=== PATIENT | female | born 1945 | race Caucasian/White ===

== ENCOUNTER 2024-02-08 21:51 | Inpatient (IN) ==
--- NOTE | 2024-02-08 21:57 | DR.GENAD ---
HPI Time Seen Time Seen by Provider: 02/08/24 21:56 HPI Comment HPI Comment: 78 y/o on home oxygen at 2 lpm for copd brought in by ems for sob and intermittent cp x one day; she's also noted swelling in her legs over the past day or so and admits to an occasional cough; no wheezing, abd pain, nv/d; s he denies hx of heart disease and reports she was on eliquis for her bp; however, she is currently taking no medications every day and has not seen a doctor in a year because she "does not get sick"; she last went to [facility]. According to our records, she should be on eliquis, carvedilol, furosemide, losartan, potassium and welchol and she has hx htn and afib PMH PMH Past Medical History: Diabetes and Hypertension Past Surgical History: Yes Surgical History: Hysterectomy and Mastectomy Family History Family Medical History: Diabetes Mellitus Social History Do you use any recreational Drugs:: No ROS Review of Systems Constitutional: No Symptoms Reported Eyes: No Symptoms Reported ENTM: No Symptoms Reported Respiratoy: See HPI and Short of Breath Cardiovascular: See HPI and Chest Pain Gastrointestinal/Abdominal: No Symptoms Reported Genitourinary: No Symptoms Reported Neurological: No Symptoms Reported Musculoskeletal: See HPI Integumentary: No Symptoms Reported Hematologic/Lymphatic: No Symptoms Reported Endocrine: No Symptoms Reported Psychiatric: No Symptoms Reported PE Vital Signs Vitals: Vital Signs Temperature 97.7 F Pulse Rate 122 Pulse Rate 125 Pulse Rate 120 Pulse Rate 124 Pulse Rate 114 Pulse Rate 112 Pulse Rate 99 Pulse Rate 116 Pulse Rate 111 Pulse Rate 113 Pulse Rate 119 Pulse Rate 119 Pulse Rate 112 Pulse Rate 112 Pulse Rate 110 Pulse Rate 111 Pulse Rate 108 Pulse Rate 103 Pulse Rate 114 Pulse Rate 120 Pulse Rate 120 Pulse Rate 123 Pulse Rate 115 Respiratory Rate 36 Respiratory Rate 36 Respiratory Rate 42 Respiratory Rate 29 Respiratory Rate 26 Respiratory Rate 23 Respiratory Rate 35 Respiratory Rate 34 Respiratory Rate 38 Respiratory Rate 38 Respiratory Rate 39 Respiratory Rate 29 Respiratory Rate 28 Respiratory Rate 30 Respiratory Rate 34 Respiratory Rate 35 Respiratory Rate 24 Respiratory Rate 31 Respiratory Rate 43 Respiratory Rate 39 Respiratory Rate 20 Respiratory Rate 39 Blood Pressure 175/81 Blood Pressure 175/81 Blood Pressure 175/81 Blood Pressure 147/98 Blood Pressure 147/98 Blood Pressure 166/93 Blood Pressure 166/93 Blood Pressure 145/100 Blood Pressure 120/59 Blood Pressure 156/78 Blood Pressure 156/78 Blood Pressure 163/111 Blood Pressure 163/111 Blood Pressure 146/66 Blood Pressure 176/98 Blood Pressure 176/98 O2 Sat by Pulse Oximetry 96 O2 Sat by Pulse Oximetry 96 O2 Sat by Pulse Oximetry 100 O2 Sat by Pulse Oximetry 100 O2 Sat by Pulse Oximetry 98 O2 Sat by Pulse Oximetry 99 O2 Sat by Pulse Oximetry 98 O2 Sat by Pulse Oximetry 98 O2 Sat by Pulse Oximetry 98 O2 Sat by Pulse Oximetry 96 O2 Sat by Pulse Oximetry 95 O2 Sat by Pulse Oximetry 98 O2 Sat by Pulse Oximetry 95 O2 Sat by Pulse Oximetry 97 O2 Sat by Pulse Oximetry 97 O2 Sat by Pulse Oximetry 96 O2 Sat by Pulse Oximetry 96 O2 Sat by Pulse Oximetry 97 General Limitations: No Limitations General Appearance: Anxious and Obese Head Head Exam: Normal Inspection Eyes Eye exam: Normal Appearance Neck Neck Exam: Normal Inspection Chest Chest Inspection: Normal Inspection Respiratory Respiratory Exam: Accessory Muscle Use Respiratory Exam: Left: Crackles (scattered) Cardiovascular Cardiovascular Exam: Normal Rhythm and Tachycardia Abdominal Exam Abdominal Exam: Normal Inspection, Normal Bowel Sounds and Soft Extremities Extremities Exam: Edema (tr to 1+ ble edema) Back Back Exam: Normal Inspection Neurologic Neurological Exam: Alert and Oriented X3 Psychiatric Psychiatric Exam: Anxious Skin Skin Exam: Warm, Dry, Intact and Normal Color COURSE Reevaluation 1st: Unchanged 2nd: Improved (on bipap) Critical Care Notes Total Time (mins): 60 Critical Diagnosis: sepsis, pneu, hypoxia, afib w/rvr Critical Interventions: labs, xr, ct chest with evaluation of results oxygen, bi-pap discussion with pt re: results discussion with pt/significant other re: need for admission discussion w/Dr English re: admission ROR Labs Reviewed Laboratory Results Reviewed?: Yes 02/08/24 22:10 02/08/24 22:10 Laboratory: WBC 5.0 X10^3/uL (3.6-10.0) 02/08/24 22:10 RBC 4.06 X10^6/uL (3.5-5.4) 02/08/24 22:10 Hgb 12.4 g/dL (12.0-16.0) 02/08/24 22:10 Hct 38.3 % (36.0-47.0) 02/08/24 22:10 MCV 94.4 fL (80.0-100.0) 02/08/24 22:10 MCH 30.5 pg (27.0-34.0) 02/08/24 22:10 MCHC 32.4 g/dL (33.0-35.0) L 02/08/24 22:10 RDW 15.0 % (11.6-16.5) 02/08/24 22:10 Plt Count 126 X10^3/uL (150.0-450.0) L 02/08/24 22:10 MPV 9.7 fL (7.4-11.0) 02/08/24 22:10 Neut % (Auto) 81.2 % (42.0-75.0) H 02/08/24 22:10 Lymph % (Auto) 8.1 % (21.0-51.0) L 02/08/24 22:10 Collier % (Auto) 7.9 % (0.0-13.0) 02/08/24 22:10 Eos % (Auto) 2.1 % (0.9-2.9) 02/08/24 22:10 Baso % (Auto) 0.7 % (0.2-1.0) 02/08/24 22:10 Neut # (Auto) 4.1 x10^3/uL (2.2-4.8) 02/08/24 22:10 Lymph # (Auto) 0.4 X10^3/uL (1.3-2.9) L 02/08/24 22:10 Collier # (Auto) 0.4 x10^3/uL (0.3-0.8) 02/08/24 22:10 Eos # (Auto) 0.1 x10^3/uL (0.0-0.2) 02/08/24 22:10 Baso # (Auto) 0.0 X10^3/uL (0.0-0.1) 02/08/24 22:10 Absolute Nucleated RBC 0.1 /100WBC 02/08/24 22:10 D-Dimer 2.01 ug/ml (0.0-0.57) H 02/08/24 22:10 Sample Site Rr 02/08/24 21:57 ABG pH 7.360 (7.35-7.45) 02/08/24 21:57 ABG pCO2 66.0 mmHg (35.0-45.0) H* 02/08/24 21:57 ABG pO2 94.0 mmHg (80.0-100.0) 02/08/24 21:57 ABG HCO3 37.3 mmol/L (22-26) H* 02/08/24 21:57 ABG O2 Saturation 97.0 % (90-100) 02/08/24 21:57 ABG Base Excess 9.5 mmol/L (-2.0-2.0) H 02/08/24 21:57 Kevin Test Pos 02/08/24 21:57 A-a Gradient 52.0 mmHg 02/08/24 21:57 FiO2 32.0 02/08/24 21:57 Blood Gas Comments Sharron well sw 02/08/24 21:57 Sodium 143 mmol/L (136-145) 02/08/24 22:10 Corrected Sodium 143 mmol/L (136-145) 02/08/24 22:10 Potassium 4.4 mmol/L (3.5-5.1) 02/08/24 22:10 Chloride 102 mmol/L (98-107) 02/08/24 22:10 Carbon Dioxide 32.5 mmol/L (21-32) H 02/08/24 22:10 BUN 15 mg/dL (7-18) 02/08/24 22:10 Creatinine 0.83 mg/dL (0.55-1.02) 02/08/24 22:10 Est GFR (MDRD) Af Amer > 60 (>60) 02/08/24 22:10 Est GFR (MDRD) Non-Af > 60 (>60) 02/08/24 22:10 Glucose 119 mg/dL (65-99) H 02/08/24 22:10 Lactic Acid 0.8 mmol/L (0.4-2.0) 02/09/24 01:10 Calcium 8.9 mg/dL (8.5-10.1) 02/08/24 22:10 Corrected Calcium 10.0 mg/dL (8.5-10.1) 02/08/24 22:10 Total Bilirubin 0.70 mg/dL (0.2-1.0) 02/08/24 22:10 AST 20 Units/L (15-37) 02/08/24 22:10 ALT 16 Units/L (12-78) 02/08/24 22:10 Alkaline Phosphatase 109 Units/L (46-116) 02/08/24 22:10 Creatine Kinase 44 Units/L (26-192) 02/08/24 22:10 Troponin I High Sens 40.4 ng/L (4.0-60.0) 02/08/24 22:10 B-Natriuretic Peptide 614 pg/mL (0-79) H 02/08/24 22:10 Total Protein 6.8 g/dL (6.4-8.2) 02/08/24 22:10 Albumin 2.6 g/dL (3.4-5.0) L 02/08/24 22:10 Globulin 4.2 g/dL (2.5-4.5) 02/08/24 22:10 Albumin/Globulin Ratio 0.6 Ratio (1.1-2.1) L 02/08/24 22:10 SARS-CoV-2 (PCR) Negative (NEGATIVE) 02/08/24 22:10 Influenza Type A (PCR) Negative (NEGATIVE) 02/08/24 22:10 Influenza Type B (PCR) Negative (NEGATIVE) 02/08/24 22:10 RSV (PCR) Negative (NEGATIVE) 02/08/24 22:10 XRAY XRAY Interpreted by: Radiologist X-ray Results: cta: Negative CT pulmonary angiogram; no evidence of pulmonary embolic disease. Marked cardiomegaly with CT evidence of right heart dysfunction. Small to moderate-sized bilateral pleural effusions. Diffuse aneurysmal dilatation of the ascending thoracic aorta measuring up to 6 cm. No significant change from previous 07/12/2023. pcxr: Left mid lung zone interstitial infiltrate. Moderate cardiomegaly. Opioid Opioid Risk Tool Age (Yaya box if 16-45): No History of Preadolescent Sexual Abuse: No Total: 0 Total Score Risk Category: Low Risk Copyright: Federico BOUDREAUX predicting aberrant behaviors Discharge Plan Diagnosis Discharge Problem: Aneurysm of ascending aorta, Atrial fibrillation with RVR, Hypoxia Pneumonia involving left lung Qualifiers: Pneumonia type: due to unspecified organism Discharge Plan Patient Disposition: ADMITTED INPATIENT Condition: Stable Prescriptions: No Action [facility] Concerns: Post Hospitalization: new medications and changes needed to prevent readmission or further decline. Pt educated and given instructions on all concerns. Plan of Treatment: Continue with present treatment and follow up plan. Pt is to keep follow up appointment as instructed and take medications as ordered. Follow ups/Referrals Follow ups/Referrals: ANETA LIU [Primary Care Provider] - 3 days Instructions Instructions: Atrial Fibrillation, [id number]
--- NOTE | 2024-02-08 22:15 | EKG ---
Test Reason : sob Blood Pressure : */* mmHG Vent. Rate : 115 BPM Atrial Rate : * BPM P-R Int : * ms QRS Dur : 114 ms QT Int : 308 ms P-R-T Axes : * 3 131 degrees QTc Int : 426 ms Atrial fibrillation with rapid ventricular response with premature ventricular or aberrantly conducte d complexes Minimal voltage criteria for LVH, may be normal variant ( Ellinger product ) Nonspecific T wave abnormality Abnormal ECG When compared with ECG of 12-JUL-2023 13:01, Non-specific change in ST segment in Anterior leads Referred By: Confirmed By:
[2024-02-08 22:28] LABS: EOSINOPHILS # (AUTO) 0.1 x10^3/uL (0.0-0.2)
[2024-02-08 22:30] LABS: ABG BASE EXCESS 9.5 mmol/L (-2.0-2.0)
[2024-02-08 22:30] LABS: MEAN CORPUSCULAR HGB CONC 32.4 g/dL (33.0-35.0); MEAN CORPUSCULAR VOLUME 94.4 fL (80.0-100.0)
[2024-02-08 22:31] LABS: ABG ALLEN TEST POS; ABG HCO3 37.3 mmol/L (22-26)
[2024-02-08 22:32] VITALS: BMI 53.3
[2024-02-08 22:35] LABS: ALANINE AMINOTRANSFERASE 16 Units/L (12-78); ALBUMIN 2.6 g/dL (3.4-5.0); ALKALINE PHOSPHATASE 109 Units/L (46-116); ASPARTATE AMINO TRANSFERASE 20 Units/L (15-37); BLOOD UREA NITROGEN 15 mg/dL (7-18); CALCIUM 8.9 mg/dL (8.5-10.1); CARBON DIOXIDE 32.5 mmol/L (21-32); CHLORIDE 102 mmol/L (98-107); COR NA(FOR HYPERGLY) 143 mmol/L (136-145); CREATINE KINASE 44 Units/L (26-192); CREATININE 0.83 mg/dL (0.55-1.02); GLUCOSE 119 mg/dL (65-99); POTASSIUM 4.4 mmol/L (3.5-5.1); SODIUM 143 mmol/L (136-145); TOTAL PROTEIN 6.8 g/dL (6.4-8.2); eGFR NON BLACK RACES > 60 (>60)
[2024-02-08 22:44] LABS: BASOPHILS % (AUTO) 0.7 % (0.2-1.0); EOSINOPHILS % (AUTO) 2.1 % (0.9-2.9); HEMATOCRIT 38.3 % (36.0-47.0); HEMOGLOBIN 12.4 g/dL (12.0-16.0); LYMPHOCYTES # (AUTO) 0.4 X10^3/uL (1.3-2.9); LYMPHOCYTES % (AUTO) 8.1 % (21.0-51.0); MEAN CORPUSCULAR HEMOGLOBIN 30.5 pg (27.0-34.0); MEAN PLATELET VOLUME 9.7 fL (7.4-11.0); MONOCYTES # (AUTO) 0.4 x10^3/uL (0.3-0.8); MONOCYTES % (AUTO) 7.9 % (0.0-13.0); NEUTROPHILS # (AUTO) 4.1 x10^3/uL (2.2-4.8); NEUTROPHILS % (AUTO) 81.2 % (42.0-75.0); PLATELET COUNT 126 X10^3/uL (150.0-450.0); RED BLOOD COUNT 4.06 X10^6/uL (3.5-5.4)
--- NOTE | 2024-02-08 22:55 | RAD ---
EXAM:CHEST, 1 VIEWHISTORY:sob, weak;COMPARISON:July 12, 2023TECHNIQUE:2 frontal views of the chest were obtained.FINDINGS:There are multiple EKG leads and wires seen overlying the patient. There is moderate cardiomegaly. There is tortuosity of the descending thoracic aorta. Increased interstitial markings within the left mid lung zone. There is no effusion. There is no pneumothorax. The osseous structures are intact.IMPRESSION:Left mid lung zone interstitial infiltrate.Moderate cardiomegaly.THIS IS AN ELECTRONICALLY VERIFIED FINAL REPORT02/08/2024 10:52 PM - Electronically signed by Misty Mello MD
[2024-02-08] MEDS: OMNIPAQUE 350 mg/mL 100 mL BTL 100 ML ONE (23:11)
--- NOTE | 2024-02-09 00:29 | CT ---
EXAM:CTA CHEST WITH CONTRASTHISTORY:SOB, ELEVATED D-DIMER; C/O weakness, elevated BP at home; HX: HTN, DM SX: MASTECTOMY ; 350 OMNIPAQUE, 100 MLCOMPARISON:07/12/2023TECHNIQUE:Axial images were acquired of the chest with IV contrast for a CT angiogram. Coronal and sagittal images were provided. All images were reviewed in a variety of windows and levels. 3D 8 mm thick MIPS images were provided.RADIATION REDUCTION TECHNIQUE: Automated exposure control, Adjustment of the mA and/or kV according to patient size, or iterative reconstruction techniques were used. 8 mm thick axial MIPS images were provided.FINDINGS:THYROID GLAND: The thyroid gland is unremarkable.HEART AND VESSELS: The heart size is markedly enlarged. Coronary artery calcification present. There is no evidence of a pericardial effusion. There is diffuse aneurysmal dilatation of the ascending thoracic aorta measuring up to 6 cm. The main pulmonary artery size is within normal limits. There are no filling defects seen in the visualized pulmonary arteries to suggest a pulmonary embolism. There is reflux of contrast into the IVC and hepatic veins indicating right heart dysfunction.LYMPHNODES: There is no evidence of axillary, mediastinal, or hilar lymphadenopathyAIRWAY: The trachea and mainstem bronchi are patent. No intraluminal lesions are seen.LUNGS: Small to moderate-sized bilateral pleural effusions. No pneumothorax.ESOPHAGUS: The esophagus is grossly unremarkable.BONES: The visualized bones demonstrate degenerative changes. There are no concerning lytic or blastic lesions identified.UPPER ABDOMINAL STRUCTURES: The visualized portions of the upper abdominal structures are unremarkable.IMPRESSION:Negative CT pulmonary angiogram; no evidence of pulmonary embolic disease.Marked cardiomegaly with CT evidence of right heart dysfunction.Small to moderate-sized bilateral pleural effusions.Diffuse aneurysmal dilatation of the ascending thoracic aorta measuring up to 6 cm.No significant change from previous 07/12/2023.THIS IS AN ELECTRONICALLY VERIFIED FINAL REPORT02/09/2024 12:26 AM - Electronically signed by Chester Chinchilla MD
[2024-02-09] MEDS ORDERED: CONSULT PHARMACY - POTASSIUM & MAGNESIUM XX SCH (01:00)
[2024-02-09] MEDS: LEVAQUIN PREMIX IV 750 MG 750 MG/150 ML BAG IV SCH ×2 (01:02→21:15)
[2024-02-09] MEDS ORDERED: PROVENTIL NEB TX 0.083% 2.5MG/ 3ML ONE (01:08)
[2024-02-09] MEDS: LEVAQUIN PREMIX IV 750 MG 750 MG/150 ML BAG IV ONE (01:13)
[2024-02-09] MEDS: PROVENTIL NEB TX 0.083% 2.5MG/ 3ML NEB PRN (01:33)
[2024-02-09] MEDS ORDERED: LOPRESSOR INJ 5 MG AMP IVP PRN (03:32)
[2024-02-09 04:51] LABS: BASOPHILS % (AUTO) 0.7 % (0.2-1.0); EOSINOPHILS # (AUTO) 0.1 x10^3/uL (0.0-0.2); EOSINOPHILS % (AUTO) 1.8 % (0.9-2.9); HEMATOCRIT 37.7 % (36.0-47.0); LYMPHOCYTES # (AUTO) 0.4 X10^3/uL (1.3-2.9); LYMPHOCYTES % (AUTO) 8.8 % (21.0-51.0); MEAN CORPUSCULAR HEMOGLOBIN 30.5 pg (27.0-34.0); MEAN CORPUSCULAR HGB CONC 31.9 g/dL (33.0-35.0); MEAN CORPUSCULAR VOLUME 95.4 fL (80.0-100.0); MEAN PLATELET VOLUME 10.3 fL (7.4-11.0); MONOCYTES # (AUTO) 0.4 x10^3/uL (0.3-0.8); MONOCYTES % (AUTO) 9.4 % (0.0-13.0); NEUTROPHILS # (AUTO) 3.5 x10^3/uL (2.2-4.8); NEUTROPHILS % (AUTO) 79.3 % (42.0-75.0); PLATELET COUNT 110 X10^3/uL (150.0-450.0); RED BLOOD COUNT 3.95 X10^6/uL (3.5-5.4); WHITE BLOOD COUNT 4.5 X10^3/uL (3.6-10.0)
[2024-02-09 04:57] LABS: ALANINE AMINOTRANSFERASE 15 Units/L (12-78); ALBUMIN 2.6 g/dL (3.4-5.0); ALKALINE PHOSPHATASE 96 Units/L (46-116); ASPARTATE AMINO TRANSFERASE 20 Units/L (15-37); BLOOD UREA NITROGEN 14 mg/dL (7-18); CHLORIDE 104 mmol/L (98-107); COR CA(FOR HYPOALB) 10.1 mg/dL (8.5-10.1); CREATININE 0.74 mg/dL (0.55-1.02); GLUCOSE 106 mg/dL (65-99); POTASSIUM 4.5 mmol/L (3.5-5.1); SODIUM 144 mmol/L (136-145); TOTAL PROTEIN 6.6 g/dL (6.4-8.2); eGFR NON BLACK RACES > 60 (>60)
[2024-02-09] MEDS: COREG TAB 12.5 MG PO SCH (08:43)
[2024-02-09] MEDS: PULMICORT NEB TX 0.5 MG NEB SCH (08:55)
[2024-02-09] MEDS: COREG TAB 12.5 MG PO ONE (10:30)
--- NOTE | 2024-02-09 15:08 | DR.H&P ---
H&P History & Physical for Day of: H&P Date: 02/09/24 Chief Complaint Chief Complaint: Shortness of breath Weakness Allergies Allergies Allergy/AdvReac Type Severity Reaction Status Date / Time macadamia nut oil Allergy Verified 03/05/23 22:11 History of Present Illness History of Present Illness: Patient is a 78-year-old female with a past medical history of hypertension and atrial fibrillation presenting with shortness of breath and generalized weakness that has been progressively getting worse for the past few days. She states that she was seen previously at the [facility] but has been over a year and she has not been taking any of her medications that she was prescribed by them. Labs/imaging: WBC 4.5, hemoglobin 12, platelets 110, sodium 144, potassium 4.5, creatinine 0.74, glucose 106, D- dimer 2.01, troponin negative, lactic acid 0.8, BNP 614, flu/COVID/RSV negative, ABG: pH 7.36, pCO2 66, pO2 94, HCO3 37, O2 sat 97% on FiO2 of 32% AIT pending, blood culture pending. CXR: Left mid lung zone interstitial infiltrate. Moderate cardiomegaly. CTA chest was obtained that revealed: CTA chest was obtained that revealed: Negative CT pulmonary angiogram; no evidence of pulmonary embolic disease. Marked cardiomegaly with CT evidence of right heart dysfunction. Small to moderate-sized bilateral pleural effusions. Diffuse aneurysmal dilatation of the ascending thoracic aorta measuring up to 6 cm. In the ED patient was in acute respiratory failure and required BiPAP, however she was able to be weaned down to nasal cannula on examination this morning. She reports feeling a little better. Patient does continue to have atrial fibrillation with RVR. Will start on Cardizem p.o. every 6 H. Start on Coreg that she was taking previously. Will need to be restarted also on Eliquis. Order IV Lasix 40 mg x 1 dose. Will order echo and consult cardiology. Possible also pneumonia, patient is receiving IV Levaquin. Continue closely monitor patient, wean/titrate oxygen as tolerated. Follow-up labs/imaging. Time spent on clinical assessment, reviewing labs and imaging, decision making, and documentation greater than 45 minutes. Past Medical History Past Medical History: Diabetes and Hypertension Past Surgical History Surgical History: Cholecystectomy and Mastectomy Family History Family Medical History: Cancer Social History Does any household member use tobacco: No Alcohol Use: None Drug Use: None Medications Home Medications: Home Medications Medication Instructions Recorded Confirmed Type NK 02/09/24 02/09/24 History Labs 02/09/24 04:09 02/09/24 04:09 Labs: Laboratory WBC 4.5 X10^3/uL (3.6-10.0) 02/09/24 04:09 RBC 3.95 X10^6/uL (3.5-5.4) 02/09/24 04:09 Hgb 12.0 g/dL (12.0-16.0) 02/09/24 04:09 Hct 37.7 % (36.0-47.0) 02/09/24 04:09 MCV 95.4 fL (80.0-100.0) 02/09/24 04:09 MCH 30.5 pg (27.0-34.0) 02/09/24 04:09 MCHC 31.9 g/dL (33.0-35.0) L 02/09/24 04:09 RDW 15.0 % (11.6-16.5) 02/09/24 04:09 Plt Count 110 X10^3/uL (150.0-450.0) L 02/09/24 04:09 MPV 10.3 fL (7.4-11.0) 02/09/24 04:09 Neut % (Auto) 79.3 % (42.0-75.0) H 02/09/24 04:09 Lymph % (Auto) 8.8 % (21.0-51.0) L 02/09/24 04:09 Crockett % (Auto) 9.4 % (0.0-13.0) 02/09/24 04:09 Eos % (Auto) 1.8 % (0.9-2.9) 02/09/24 04:09 Baso % (Auto) 0.7 % (0.2-1.0) 02/09/24 04:09 Neut # (Auto) 3.5 x10^3/uL (2.2-4.8) 02/09/24 04:09 Lymph # (Auto) 0.4 X10^3/uL (1.3-2.9) L 02/09/24 04:09 Crockett # (Auto) 0.4 x10^3/uL (0.3-0.8) 02/09/24 04:09 Eos # (Auto) 0.1 x10^3/uL (0.0-0.2) 02/09/24 04:09 Baso # (Auto) 0.0 X10^3/uL (0.0-0.1) 02/09/24 04:09 Absolute Nucleated RBC 0.1 /100WBC 02/09/24 04:09 D-Dimer 2.01 ug/ml (0.0-0.57) H 02/08/24 22:10 Sample Site Rr 02/08/24 21:57 ABG pH 7.360 (7.35-7.45) 02/08/24 21:57 ABG pCO2 66.0 mmHg (35.0-45.0) H* 02/08/24 21:57 ABG pO2 94.0 mmHg (80.0-100.0) 02/08/24 21:57 ABG HCO3 37.3 mmol/L (22-26) H* 02/08/24 21:57 ABG O2 Saturation 97.0 % (90-100) 02/08/24 21:57 ABG Base Excess 9.5 mmol/L (-2.0-2.0) H 02/08/24 21:57 Kevin Test Pos 02/08/24 21:57 A-a Gradient 52.0 mmHg 02/08/24 21:57 FiO2 32.0 02/08/24 21:57 Blood Gas Comments Sharron well sw 02/08/24 21:57 Sodium 144 mmol/L (136-145) 02/09/24 04:09 Corrected Sodium TNP 02/09/24 04:09 Potassium 4.5 mmol/L (3.5-5.1) 02/09/24 04:09 Chloride 104 mmol/L (98-107) 02/09/24 04:09 Carbon Dioxide 34.0 mmol/L (21-32) H 02/09/24 04:09 BUN 14 mg/dL (7-18) 02/09/24 04:09 Creatinine 0.74 mg/dL (0.55-1.02) 02/09/24 04:09 Est GFR (MDRD) Af Amer > 60 (>60) 02/09/24 04:09 Est GFR (MDRD) Non-Af > 60 (>60) 02/09/24 04:09 Glucose 106 mg/dL (65-99) H 02/09/24 04:09 Hemoglobin A1c 5.3 % 02/09/24 04:09 Lactic Acid 0.8 mmol/L (0.4-2.0) 02/09/24 01:10 Calcium 9.0 mg/dL (8.5-10.1) 02/09/24 04:09 Corrected Calcium 10.1 mg/dL (8.5-10.1) 02/09/24 04:09 Total Bilirubin 0.80 mg/dL (0.2-1.0) 02/09/24 04:09 AST 20 Units/L (15-37) 02/09/24 04:09 ALT 15 Units/L (12-78) 02/09/24 04:09 Alkaline Phosphatase 96 Units/L (46-116) 02/09/24 04:09 Creatine Kinase 44 Units/L (26-192) 02/08/24 22:10 Troponin I High Sens 40.4 ng/L (4.0-60.0) 02/08/24 22:10 B-Natriuretic Peptide 614 pg/mL (0-79) H 02/08/24 22:10 Total Protein 6.6 g/dL (6.4-8.2) 02/09/24 04:09 Albumin 2.6 g/dL (3.4-5.0) L 02/09/24 04:09 Globulin 4.0 g/dL (2.5-4.5) 02/09/24 04:09 Albumin/Globulin Ratio 0.7 Ratio (1.1-2.1) L 02/09/24 04:09 SARS-CoV-2 (PCR) Negative (NEGATIVE) 02/08/24 22:10 Influenza Type A (PCR) Negative (NEGATIVE) 02/08/24 22:10 Influenza Type B (PCR) Negative (NEGATIVE) 02/08/24 22:10 RSV (PCR) Negative (NEGATIVE) 02/08/24 22:10 Review of Systems Constitutional: Weakness Eyes: No Symptoms Reported ENT: No Symptoms Reported Respiratory: Cough and Shortness of Breath Cardiovascular: No Symptoms Reported Gastrointestinal: No Symptoms Reported Genitourinary: No Symptoms Reported Musculoskeletal: No Symptoms Reported Skin: No Symptoms Reported Neurological: No Symptoms Reported Physical Exam Vital Signs: Vital Signs Temperature 98.1 F Temperature 98.0 F Pulse Rate [Right Brachial] 113 Pulse Rate [Right Brachial] 105 Pulse Rate 126 Respiratory Rate 20 Respiratory Rate 20 Blood Pressure [Left Arm] 133/77 Blood Pressure [Left Arm] 133/85 O2 Sat by Pulse Oximetry 97 O2 Sat by Pulse Oximetry 97 O2 Sat by Pulse Oximetry 99 Oriented: Normal Eyes: Normal Ear: Normal Nose: Normal Throat: Normal Respiratory: Diminished Throughout Cardiovascular: Tachycardia and Irregular : Normal Auscultation: Bowel Sounds: Normal Palpation: Normal Tenderness: Normal Skin: Normal Musculoskeletal: Normal Psychiatric: Normal Mood Description: Calm and Appropriate Affect: Normal Speech Pattern: Clear and Appropriate Assessment/Plan (1) Atrial fibrillation with normal ventricular rate: Status: Acute Plan: Started on Coreg, Cardizem, Eliquis, consult cardiology, order echo. (2) Aneurysm of ascending aorta: Status: Acute (3) D-dimer, elevated: Status: Acute Plan: Pulmonary embolus ruled out by CTA chest (4) Hypokalemia: Status: Acute Plan: Replete per protocol (5) Pneumonia involving left lung: Qualifiers: Pneumonia type: due to unspecified organism Status: Acute Plan: IV Levaquin. (6) Atrial fibrillation with RVR: Status: Acute (7) Hypoxia: Status: Acute (8) CHF exacerbation: Status: Acute Plan: IV lasix Review H&P Reviewed: Yes Patient was examined?: Yes
[2024-02-09] MEDS: CARDIZEM TAB 30 MG PLAIN PO SCH (16:06)
[2024-02-09] MEDS: LASIX IVP ONE (16:06)
[2024-02-09] MEDS: NS 100 ML IV 100 ML ONE (21:15)
[2024-02-09] MEDS: ELIQUIS PO SCH (21:16)
[2024-02-09] MEDS: COREG TAB 25 MG PO SCH (21:16)
[2024-02-10 06:15] LABS: BASOPHILS % (AUTO) 0.9 % (0.2-1.0); EOSINOPHILS # (AUTO) 0.1 x10^3/uL (0.0-0.2); HEMATOCRIT 37.3 % (36.0-47.0); HEMOGLOBIN 11.9 g/dL (12.0-16.0); LYMPHOCYTES # (AUTO) 0.3 X10^3/uL (1.3-2.9); LYMPHOCYTES % (AUTO) 5.3 % (21.0-51.0); MEAN CORPUSCULAR HEMOGLOBIN 30.4 pg (27.0-34.0); MEAN CORPUSCULAR VOLUME 94.8 fL (80.0-100.0); MEAN PLATELET VOLUME 9.9 fL (7.4-11.0); MONOCYTES # (AUTO) 0.5 x10^3/uL (0.3-0.8); MONOCYTES % (AUTO) 9.9 % (0.0-13.0); NEUTROPHILS # (AUTO) 3.9 x10^3/uL (2.2-4.8); NEUTROPHILS % (AUTO) 81.9 % (42.0-75.0); PLATELET COUNT 80 X10^3/uL (150.0-450.0); RED BLOOD COUNT 3.93 X10^6/uL (3.5-5.4); RED CELL DISTRIBUTION WIDTH 14.9 % (11.6-16.5); WHITE BLOOD COUNT 4.8 X10^3/uL (3.6-10.0)
[2024-02-10 06:26] LABS: ALANINE AMINOTRANSFERASE 16 Units/L (12-78); ALBUMIN 2.5 g/dL (3.4-5.0); ALKALINE PHOSPHATASE 94 Units/L (46-116); ASPARTATE AMINO TRANSFERASE 18 Units/L (15-37); BLOOD UREA NITROGEN 18 mg/dL (7-18); CALCIUM 8.7 mg/dL (8.5-10.1); CHLORIDE 102 mmol/L (98-107); COR CA(FOR HYPOALB) 9.9 mg/dL (8.5-10.1); CREATININE 0.87 mg/dL (0.55-1.02); GLUCOSE 98 mg/dL (65-99); POTASSIUM 4.2 mmol/L (3.5-5.1); SODIUM 143 mmol/L (136-145); TOTAL PROTEIN 6.5 g/dL (6.4-8.2); eGFR NON BLACK RACES > 60 (>60)
--- NOTE | 2024-02-10 08:29 | DR.CONSULT ---
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- cath last year w/o sign cad/normal lv too- saw CTS and told her too high risk for surgery on aneurysm- has taken no meds for 4 months- no rate control meds/no doac- very sob/swollen- sleep in chair for months- horrible blood gas 7.33/66 co2/94 o2- given one dose of lasix- put back on doac/rate control meds- still sob but better Past Medical History Past Medical History: Diabetes and Hypertension Past Surgical History Surgical History: Cholecystectomy and Mastectomy Family History Family Medical History: Cancer Social History Does any household member use tobacco: No Alcohol Use: None Drug Use: None Medications Home Medications: macadamia nut oil Allergy (Verified 03/05/23 22:11) CONTINUE taking the following medications NK 02/09/24 [History] Physical Exam Vital Signs: Vital Signs Temperature 97.9 F Pulse Rate [Right Brachial] 73 Respiratory Rate 20 Blood Pressure [Left Arm] 90/55 O2 Sat by Pulse Oximetry 97 very sob elevated jvd junky B lungs 3 plus B edema labs: hct 37 plt 80k k4.2 bun/cr 18/0.8 bnp 614-322 trop negative, ddimer 2 but cta : no clot, cta: 6 cm taa,B effusions, big heart ekg: afib cxr: Cm, tortuos AO, LML infiltrate prelim echo: ef 30% Plan (1) Atrial fibrillation with normal ventricular rate: Status: Acute Plan: rate control doac- use coreg (2) Aneurysm of ascending aorta: Status: Acute Narrative Support Text: not a surgical candidate (3) Pneumonia involving left lung: Status: Acute Qualifiers: Pneumonia type: due to unspecified organism (4) Hypoxia: Status: Acute (5) CHF exacerbation: Status: Acute Narrative Support Text: diuresis (6) Cardiomyopathy: Status: Acute Plan: coreg/diuresis- no cad last year- check tsh-suspect prolonged tachy w no meds provoked lv dysfunction
[2024-02-10] MEDS: LASIX IVP SCH (08:57)
[2024-02-10] MEDS: K-DUR TAB 20 MEQ PO SCH (08:57)
--- NOTE | 2024-02-10 10:20 | PCM.PROG ---
Progress Note Progress Note for Day of Date of Exam: 02/10/24 Subjective Subjective: Patient seen at bedside, no acute events overnight. She states she is feeling slightly better. She is currently on 3L NC. She does use chronic oxygen, 2L at baseline. She is currently admitted for CHF exacerbation and pneumonia. She also had atrial fibrillation with RVR. Cardiology has been consulted. She is currently on IV Levaquin and bronchodilators. Labs/imaging reviewed - Hgb 11.9 Plt 80 BUN/Cr: 18/0.87 BNP 322 - CTPE: no PE, b/l pleural effusions and cardiomegaly noted. Ascending thoracic aneurysm 6cm. Plan: follow cardiology recommendations, monitor I&Os, daily weights. Diuresis with IV lasix. Continue coreg and diltiazem. Echo pending. Continue levaquin and bronchodilators. Wean O2 as tolerated. Continue telemetry. Continue home medications. Monitor AM labs/imaging. Time spent for clinical assessment, reviewing labs/imaging, physical exam, decision making and documentation greater than 45 mins. Past Medical Family Social History Allergies: Allergies macadamia nut oil Allergy (Verified 03/05/23 22:11) Vital Signs and I&O's Vital Signs: Vital Signs Temperature 97.6 F Temperature 97.9 F Pulse Rate [Right Brachial] 79 Pulse Rate [Right Brachial] 73 Pulse Rate 81 Respiratory Rate 17 Respiratory Rate 20 Blood Pressure [Left Arm] 128/79 Blood Pressure [Left Arm] 90/55 O2 Sat by Pulse Oximetry 99 O2 Sat by Pulse Oximetry 98 O2 Sat by Pulse Oximetry 97 Intake and Output: Intake & Output 02/07/24 02/08/24 02/09/24 02/10/24 23:59 23:59 23:59 23:59 Intake Total 937 / 937 Output Total 800 / 800 525 / 525 Balance 137 / 137 -525 / -525 Physical Exam Oriented: Normal Eyes: Normal Ear: Normal Nose: Normal Throat: Normal Respiratory: Generalized, Diminished and Rales Cardiovascular: Tachycardia, Irregular and Edema Auscultation: Bowel Sounds: Normal Palpation: Normal Tenderness: Normal Skin: Normal Musculoskeletal: Normal Psychiatric: Normal Mood Description: Calm and Appropriate Affect: Normal Speech Pattern: Clear and Appropriate Laboratory and Diagnostics 02/10/24 05:45 02/10/24 05:45 Labs: Laboratory WBC 4.8 X10^3/uL (3.6-10.0) 02/10/24 05:45 RBC 3.93 X10^6/uL (3.5-5.4) 02/10/24 05:45 Hgb 11.9 g/dL (12.0-16.0) L 02/10/24 05:45 Hct 37.3 % (36.0-47.0) 02/10/24 05:45 MCV 94.8 fL (80.0-100.0) 02/10/24 05:45 MCH 30.4 pg (27.0-34.0) 02/10/24 05:45 MCHC 32.0 g/dL (33.0-35.0) L 02/10/24 05:45 RDW 14.9 % (11.6-16.5) 02/10/24 05:45 Plt Count 80 X10^3/uL (150.0-450.0) L 02/10/24 05:45 MPV 9.9 fL (7.4-11.0) 02/10/24 05:45 Neut % (Auto) 81.9 % (42.0-75.0) H 02/10/24 05:45 Lymph % (Auto) 5.3 % (21.0-51.0) L 02/10/24 05:45 [place] % (Auto) 9.9 % (0.0-13.0) 02/10/24 05:45 Eos % (Auto) 2.0 % (0.9-2.9) 02/10/24 05:45 Baso % (Auto) 0.9 % (0.2-1.0) 02/10/24 05:45 Neut # (Auto) 3.9 x10^3/uL (2.2-4.8) 02/10/24 05:45 Lymph # (Auto) 0.3 X10^3/uL (1.3-2.9) L 02/10/24 05:45 [place] # (Auto) 0.5 x10^3/uL (0.3-0.8) 02/10/24 05:45 Eos # (Auto) 0.1 x10^3/uL (0.0-0.2) 02/10/24 05:45 Baso # (Auto) 0.0 X10^3/uL (0.0-0.1) 02/10/24 05:45 Absolute Nucleated RBC 0.1 /100WBC 02/10/24 05:45 D-Dimer 2.01 ug/ml (0.0-0.57) H 02/08/24 22:10 Sample Site Rr 02/08/24 21:57 ABG pH 7.360 (7.35-7.45) 02/08/24 21:57 ABG pCO2 66.0 mmHg (35.0-45.0) H* 02/08/24 21:57 ABG pO2 94.0 mmHg (80.0-100.0) 02/08/24 21:57 ABG HCO3 37.3 mmol/L (22-26) H* 02/08/24 21:57 ABG O2 Saturation 97.0 % (90-100) 02/08/24 21:57 ABG Base Excess 9.5 mmol/L (-2.0-2.0) H 02/08/24 21:57 Kevin Test Pos 02/08/24 21:57 A-a Gradient 52.0 mmHg 02/08/24 21:57 FiO2 32.0 02/08/24 21:57 Blood Gas Comments Sharron well sw 02/08/24 21:57 Sodium 143 mmol/L (136-145) 02/10/24 05:45 Corrected Sodium TNP 02/10/24 05:45 Potassium 4.2 mmol/L (3.5-5.1) 02/10/24 05:45 Chloride 102 mmol/L (98-107) 02/10/24 05:45 Carbon Dioxide 35.0 mmol/L (21-32) H 02/10/24 05:45 BUN 18 mg/dL (7-18) 02/10/24 05:45 Creatinine 0.87 mg/dL (0.55-1.02) 02/10/24 05:45 Est GFR (MDRD) Af Amer > 60 (>60) 02/10/24 05:45 Est GFR (MDRD) Non-Af > 60 (>60) 02/10/24 05:45 Glucose 98 mg/dL (65-99) 02/10/24 05:45 Hemoglobin A1c 5.3 % 02/09/24 04:09 Lactic Acid 0.8 mmol/L (0.4-2.0) 02/09/24 01:10 Calcium 8.7 mg/dL (8.5-10.1) 02/10/24 05:45 Corrected Calcium 9.9 mg/dL (8.5-10.1) 02/10/24 05:45 Total Bilirubin 0.60 mg/dL (0.2-1.0) 02/10/24 05:45 AST 18 Units/L (15-37) 02/10/24 05:45 ALT 16 Units/L (12-78) 02/10/24 05:45 Alkaline Phosphatase 94 Units/L (46-116) 02/10/24 05:45 Creatine Kinase 44 Units/L (26-192) 02/08/24 22:10 Troponin I High Sens 40.4 ng/L (4.0-60.0) 02/08/24 22:10 B-Natriuretic Peptide 322 pg/mL (0-79) H 02/10/24 05:45 Total Protein 6.5 g/dL (6.4-8.2) 02/10/24 05:45 Albumin 2.5 g/dL (3.4-5.0) L 02/10/24 05:45 Globulin 4.0 g/dL (2.5-4.5) 02/10/24 05:45 Albumin/Globulin Ratio 0.6 Ratio (1.1-2.1) L 02/10/24 05:45 TSH 3rd Generation 3.145 uIU/mL (0.358-3.74) 02/10/24 09:16 SARS-CoV-2 (PCR) Negative (NEGATIVE) 02/08/24 22:10 Influenza Type A (PCR) Negative (NEGATIVE) 02/08/24 22:10 Influenza Type B (PCR) Negative (NEGATIVE) 02/08/24 22:10 RSV (PCR) Negative (NEGATIVE) 02/08/24 22:10 Plan (1) CHF exacerbation: Status: Acute Qualifiers: Heart failure type: unspecified Qualified Code(s): I50.9 - Heart magi lure, unspecified (2) Atrial fibrillation with normal ventricular rate: Status: Acute (3) Aneurysm of ascending aorta: Status: Acute Qualifiers: Presence of rupture: without rupture Qualified Code(s): I71.21 - Aneurysm of the ascending aorta, without rupture (4) Pneumonia involving left lung: Status: Acute Qualifiers: Pneumonia type: due to unspecified organism Lung location: unspecified part of lung Qualified Code(s): J18.9 - Pneumonia, unspecified organism (5) Hypoxia: Status: Acute (6) Cardiomyopathy: Status: Acute Qualifiers: Cardiomyopathy type: unspecified Qualified Code(s): I42.9 - Cardiomyopathy, unspecified
[2024-02-10] MEDS ORDERED: NYSTATIN POWDER ONE (14:26)
[2024-02-10] MEDS: NYSTATIN POWDER TOP SCH (14:47)
--- NOTE | 2024-02-11 05:57 | RAD ---
EXAM:CHEST, 1 VIEWHISTORY:PNEUMONIA, HYPOXIA; HTN, DM SX: HYST, MASTECTOMYCOMPARISON:02/08/2024FINDINGS: The cardiomediastinal silhouette is widened but stable. Similar aortic aneurysm.No acute airspace disease. No pneumothorax or effusion.No acute osseous abnormality.IMPRESSION:No acute cardiopulmonary disease.THIS IS AN ELECTRONICALLY VERIFIED FINAL REPORT02/11/2024 5:50 AM - Electronically signed by Nino Falcon MD
[2024-02-11 06:08] LABS: BASOPHILS % (AUTO) 0.8 % (0.2-1.0); EOSINOPHILS # (AUTO) 0.1 x10^3/uL (0.0-0.2); EOSINOPHILS % (AUTO) 1.5 % (0.9-2.9); HEMATOCRIT 37.8 % (36.0-47.0); HEMOGLOBIN 12.3 g/dL (12.0-16.0); LYMPHOCYTES # (AUTO) 0.5 X10^3/uL (1.3-2.9); LYMPHOCYTES % (AUTO) 9.4 % (21.0-51.0); MEAN CORPUSCULAR HEMOGLOBIN 30.7 pg (27.0-34.0); MEAN CORPUSCULAR HGB CONC 32.5 g/dL (33.0-35.0); MEAN CORPUSCULAR VOLUME 94.4 fL (80.0-100.0); MEAN PLATELET VOLUME 10.3 fL (7.4-11.0); MONOCYTES # (AUTO) 0.4 x10^3/uL (0.3-0.8); MONOCYTES % (AUTO) 8.5 % (0.0-13.0); NEUTROPHILS # (AUTO) 4.1 x10^3/uL (2.2-4.8); NEUTROPHILS % (AUTO) 79.8 % (42.0-75.0); PLATELET COUNT 99 X10^3/uL (150.0-450.0); RED CELL DISTRIBUTION WIDTH 14.9 % (11.6-16.5); WHITE BLOOD COUNT 5.1 X10^3/uL (3.6-10.0)
[2024-02-11 06:19] LABS: ALANINE AMINOTRANSFERASE 16 Units/L (12-78); ALBUMIN 2.4 g/dL (3.4-5.0); ALKALINE PHOSPHATASE 90 Units/L (46-116); ASPARTATE AMINO TRANSFERASE 19 Units/L (15-37); BLOOD UREA NITROGEN 21 mg/dL (7-18); CALCIUM 8.7 mg/dL (8.5-10.1); CARBON DIOXIDE 35.3 mmol/L (21-32); CHLORIDE 102 mmol/L (98-107); CREATININE 0.88 mg/dL (0.55-1.02); GLUCOSE 105 mg/dL (65-99); MAGNESIUM 1.8 mg/dL (2.0-2.9); POTASSIUM 4.2 mmol/L (3.5-5.1); SODIUM 141 mmol/L (136-145); TOTAL PROTEIN 6.4 g/dL (6.4-8.2); eGFR NON BLACK RACES > 60 (>60)
--- NOTE | 2024-02-11 07:49 | NOTE.SOAP ---
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
--- NOTE | 2024-02-11 10:30 | PCM.PROG ---
Progress Note Progress Note for Day of Date of Exam: 02/11/24 Subjective Subjective: Patient seen at bedside, no acute events overnight. She states she is feeling slightly better. She is currently on 3L NC. She does use chronic oxygen, 2L at baseline. She is admitted for CHF exacerbation and pneumonia. She also had atrial fibrillation with RVR. Cardiology has been consulted. She has had good UOP. She does have a zaidi in place. Patient's BP has been in the low 100s systolic. Labs/imaging reviewed - Hgb 12.3 Plt 99 BUN/Cr: 20/0.88 Mag 1.8 - CXR(02/11/24): no acute changes. - CTPE: no PE, b/l pleural effusions and cardiomegaly noted. Ascending thoracic aneurysm 6cm. - ECHO: EF 25% Plan: follow cardiology recommendations, monitor I&Os, daily weights. Diuresis with IV lasix. Continue coreg and diltiazem. Will check with cardio regarding dosing as patient's BP has been on the low side since last night. Replace electrolytes as per protocol. Continue levaquin and bronchodilators. Wean O2 as tolerated. Continue telemetry. Continue home medications. PT as tolerated. Monitor AM labs/imaging. Time spent for clinical assessment, reviewing labs/imaging, physical exam, decision making and documentation greater than 45 mins. Past Medical Family Social History Allergies: Allergies macadamia nut oil Allergy (Verified 03/05/23 22:11) Vital Signs and I&O's Vital Signs: Vital Signs Temperature 97.3 F Temperature 97.9 F Temperature 97.9 F Pulse Rate [Right Brachial] 78 Pulse Rate [Right Brachial] 72 Pulse Rate 73 Respiratory Rate 18 Respiratory Rate 20 Respiratory Rate 20 Blood Pressure [Left Arm] 103/54 Blood Pressure [Left Arm] 100/62 Blood Pressure 130/88 O2 Sat by Pulse Oximetry 96 O2 Sat by Pulse Oximetry 96 O2 Sat by Pulse Oximetry 95 O2 Sat by Pulse Oximetry 95 Intake and Output: Intake & Output 02/08/24 02/09/24 02/10/24 02/11/24 23:59 23:59 23:59 23:59 Intake Total 937 / 937 760 / 760 0 / 0 Output Total 800 / 800 2175 / 2175 600 / 600 Balance 137 / 137 -1415 / -1415 -600 / -600 Physical Exam Oriented: Normal Eyes: Normal Ear: Normal Nose: Normal Throat: Normal Respiratory: Generalized, Diminished and Rales Cardiovascular: Irregular and Edema Auscultation: Bowel Sounds: Normal Tenderness: Normal Skin: Normal Musculoskeletal: Normal Psychiatric: Normal Mood Description: Calm and Appropriate Affect: Normal Speech Pattern: Clear and Appropriate Laboratory and Diagnostics 02/11/24 05:32 02/11/24 05:32 Labs: 02/09/24 01:16 Blood Blood Culture - Preliminary 02/09/24 01:10 Blood Blood Culture - Preliminary Laboratory WBC 5.1 X10^3/uL (3.6-10.0) 02/11/24 05:32 RBC 4.00 X10^6/uL (3.5-5.4) 02/11/24 05:32 Hgb 12.3 g/dL (12.0-16.0) 02/11/24 05:32 Hct 37.8 % (36.0-47.0) 02/11/24 05:32 MCV 94.4 fL (80.0-100.0) 02/11/24 05:32 MCH 30.7 pg (27.0-34.0) 02/11/24 05:32 MCHC 32.5 g/dL (33.0-35.0) L 02/11/24 05:32 RDW 14.9 % (11.6-16.5) 02/11/24 05:32 Plt Count 99 X10^3/uL (150.0-450.0) L 02/11/24 05:32 MPV 10.3 fL (7.4-11.0) 02/11/24 05:32 Neut % (Auto) 79.8 % (42.0-75.0) H 02/11/24 05:32 Lymph % (Auto) 9.4 % (21.0-51.0) L 02/11/24 05:32 [place] % (Auto) 8.5 % (0.0-13.0) 02/11/24 05:32 Eos % (Auto) 1.5 % (0.9-2.9) 02/11/24 05:32 Baso % (Auto) 0.8 % (0.2-1.0) 02/11/24 05:32 Neut # (Auto) 4.1 x10^3/uL (2.2-4.8) 02/11/24 05:32 Lymph # (Auto) 0.5 X10^3/uL (1.3-2.9) L 02/11/24 05:32 [place] # (Auto) 0.4 x10^3/uL (0.3-0.8) 02/11/24 05:32 Eos # (Auto) 0.1 x10^3/uL (0.0-0.2) 02/11/24 05:32 Baso # (Auto) 0.0 X10^3/uL (0.0-0.1) 02/11/24 05:32 Absolute Nucleated RBC 0.1 /100WBC 02/11/24 05:32 D-Dimer 2.01 ug/ml (0.0-0.57) H 02/08/24 22:10 Sample Site Rr 02/08/24 21:57 ABG pH 7.360 (7.35-7.45) 02/08/24 21:57 ABG pCO2 66.0 mmHg (35.0-45.0) H* 02/08/24 21:57 ABG pO2 94.0 mmHg (80.0-100.0) 02/08/24 21:57 ABG HCO3 37.3 mmol/L (22-26) H* 02/08/24 21:57 ABG O2 Saturation 97.0 % (90-100) 02/08/24 21:57 ABG Base Excess 9.5 mmol/L (-2.0-2.0) H 02/08/24 21:57 Kevin Test Pos 02/08/24 21:57 A-a Gradient 52.0 mmHg 02/08/24 21:57 FiO2 32.0 02/08/24 21:57 Blood Gas Comments Sharron well sw 02/08/24 21:57 Sodium 141 mmol/L (136-145) 02/11/24 05:32 Corrected Sodium TNP 02/11/24 05:32 Potassium 4.2 mmol/L (3.5-5.1) 02/11/24 05:32 Chloride 102 mmol/L (98-107) 02/11/24 05:32 Carbon Dioxide 35.3 mmol/L (21-32) H 02/11/24 05:32 BUN 21 mg/dL (7-18) H 02/11/24 05:32 Creatinine 0.88 mg/dL (0.55-1.02) 02/11/24 05:32 Est GFR (MDRD) Af Amer > 60 (>60) 02/11/24 05:32 Est GFR (MDRD) Non-Af > 60 (>60) 02/11/24 05:32 Glucose 105 mg/dL (65-99) H 02/11/24 05:32 Hemoglobin A1c 5.3 % 02/09/24 04:09 Lactic Acid 0.8 mmol/L (0.4-2.0) 02/09/24 01:10 Calcium 8.7 mg/dL (8.5-10.1) 02/11/24 05:32 Corrected Calcium 10.0 mg/dL (8.5-10.1) 02/11/24 05:32 Magnesium 1.8 mg/dL (2.0-2.9) L 02/11/24 05:32 Total Bilirubin 0.60 mg/dL (0.2-1.0) 02/11/24 05:32 AST 19 Units/L (15-37) 02/11/24 05:32 ALT 16 Units/L (12-78) 02/11/24 05:32 Alkaline Phosphatase 90 Units/L (46-116) 02/11/24 05:32 Creatine Kinase 44 Units/L (26-192) 02/08/24 22:10 Troponin I High Sens 40.4 ng/L (4.0-60.0) 02/08/24 22:10 B-Natriuretic Peptide 322 pg/mL (0-79) H 02/10/24 05:45 Total Protein 6.4 g/dL (6.4-8.2) 02/11/24 05:32 Albumin 2.4 g/dL (3.4-5.0) L 02/11/24 05:32 Globulin 4.0 g/dL (2.5-4.5) 02/11/24 05:32 Albumin/Globulin Ratio 0.6 Ratio (1.1-2.1) L 02/11/24 05:32 TSH 3rd Generation 3.145 uIU/mL (0.358-3.74) 02/10/24 09:16 SARS-CoV-2 (PCR) Negative (NEGATIVE) 02/08/24 22:10 Influenza Type A (PCR) Negative (NEGATIVE) 02/08/24 22:10 Influenza Type B (PCR) Negative (NEGATIVE) 02/08/24 22:10 RSV (PCR) Negative (NEGATIVE) 02/08/24 22:10 Plan (1) CHF exacerbation: Status: Acute Qualifiers: Heart failure type: unspecified Qualified Code(s): I50.9 - Heart failure, unspecified Plan: IV lasix (2) Atrial fibrillation with normal ventricular rate: Status: Acute (3) Aneurysm of ascending aorta: Status: Acute Qualifiers: Presence of rupture: without rupture Qualified Code(s): I71.21 - Aneurysm of the ascending aorta, without rupture (4) Pneumonia involving left lung: Status: Acute Qualifiers: Lung location: unspecified part of lung Pneumonia type: due to unspecified organism Qualified Code(s): J18.9 - Pneumonia, unspecified organism (5) Hypoxia: Status: Acute (6) Cardiomyopathy: Status: Acute Qualifiers: Cardiomyopathy type: unspecified Qualified Code(s): I42.9 - Cardiomyopathy, unspecified
[2024-02-11] MEDS: PROVENTIL NEB TX 0.083% 2.5MG/ 3ML NEB SCH (17:41)
[2024-02-12 05:41] LABS: EOSINOPHILS # (AUTO) 0.1 x10^3/uL (0.0-0.2); MEAN CORPUSCULAR HGB CONC 32.2 g/dL (33.0-35.0); NEUTROPHILS # (AUTO) 4.3 x10^3/uL (2.2-4.8); RED CELL DISTRIBUTION WIDTH 14.7 % (11.6-16.5)
[2024-02-12 05:48] LABS: BASOPHILS % (AUTO) 0.2 % (0.2-1.0); EOSINOPHILS % (AUTO) 1.5 % (0.9-2.9); HEMATOCRIT 36.1 % (36.0-47.0); HEMOGLOBIN 11.6 g/dL (12.0-16.0); LYMPHOCYTES # (AUTO) 0.3 X10^3/uL (1.3-2.9); LYMPHOCYTES % (AUTO) 6.3 % (21.0-51.0); MEAN CORPUSCULAR HEMOGLOBIN 30.3 pg (27.0-34.0); MEAN CORPUSCULAR VOLUME 94.2 fL (80.0-100.0); MEAN PLATELET VOLUME 10.1 fL (7.4-11.0); MONOCYTES # (AUTO) 0.5 x10^3/uL (0.3-0.8); PLATELET COUNT 115 X10^3/uL (150.0-450.0); RED BLOOD COUNT 3.84 X10^6/uL (3.5-5.4); WHITE BLOOD COUNT 5.1 X10^3/uL (3.6-10.0)
[2024-02-12 05:57] LABS: ALANINE AMINOTRANSFERASE 15 Units/L (12-78); ALBUMIN 2.2 g/dL (3.4-5.0); ALKALINE PHOSPHATASE 86 Units/L (46-116); ASPARTATE AMINO TRANSFERASE 19 Units/L (15-37); BLOOD UREA NITROGEN 23 mg/dL (7-18); CALCIUM 8.2 mg/dL (8.5-10.1); CARBON DIOXIDE 35.6 mmol/L (21-32); CHLORIDE 101 mmol/L (98-107); COR CA(FOR HYPOALB) 9.6 mg/dL (8.5-10.1); COR NA(FOR HYPERGLY) 140 mmol/L (136-145); CREATININE 0.94 mg/dL (0.55-1.02); GLUCOSE 112 mg/dL (65-99); POTASSIUM 4.3 mmol/L (3.5-5.1); SODIUM 140 mmol/L (136-145); TOTAL PROTEIN 6.1 g/dL (6.4-8.2); eGFR NON BLACK RACES > 60 (>60)
[2024-02-12] MEDS ORDERED: CONSULT PHARMACY - POTASSIUM & MAGNESIUM XX SCH (07:00)
[2024-02-12] MEDS: MAG-OX TAB PO SCH (09:36)
[2024-02-12] MEDS: CARDIZEM CD 120 MG 24-HR PO SCH (09:37)
[2024-02-12] MEDS: COREG TAB 25 MG PO SCH (09:37)
--- NOTE | 2024-02-12 09:55 | PCM.PROG ---
Progress Note Progress Note for Day of Date of Exam: 02/12/24 Subjective Subjective: Patient seen at bedside, no acute events overnight. She states she is feeling better. She is currently on 2L NC. She is admitted for CHF exacerbation and pneumonia. She also had atrial fibrillation with RVR. Cardiology has been consulted. She has had good UOP. She does have a zaidi in place. Labs/imaging reviewed - Hgb 11.6 Plt 115 BUN/Cr: 23/0.94 Mag 1.7 - CXR(02/11/24): no acute changes. - CTPE: no PE, b/l pleural effusions and cardiomegaly noted. Ascending thoracic aneurysm 6cm. - ECHO: EF 25% Plan: follow cardiology recommendations, monitor I&Os, daily weights. Diuresis with IV lasix. Coreg and Diltiazem doses adjusted as per cardio. Replace electrolytes as per protocol. Continue levaquin and bronchodilators. Wean O2 as tolerated. Continue telemetry. Continue home medications. PT as tolerated. Monitor AM labs/imaging. Time spent for clinical assessment, reviewing labs/imaging, physical exam, decision making and documentation greater than 45 mins. Past Medical Family Social History Allergies: Allergies macadamia nut oil Allergy (Verified 03/05/23 22:11) Vital Signs and I&O's Vital Signs: Vital Signs Temperature 97.6 F Temperature 97.6 F Pulse Rate [Right Brachial] 84 Pulse Rate [Right Brachial] 69 Pulse Rate 84 Respiratory Rate 18 Respiratory Rate 20 Blood Pressure [Left Arm] 103/57 Blood Pressure [Left Arm] 90/50 O2 Sat by Pulse Oximetry 96 O2 Sat by Pulse Oximetry 96 O2 Sat by Pulse Oximetry 95 Intake and Output: Intake & Output 02/09/24 02/10/24 02/11/24 02/12/24 23:59 23:59 23:59 23:59 Intake Total 937 / 937 760 / 760 1355 / 1355 280 / 280 Output Total 800 / 800 2175 / 2175 2500 / 2500 200 / 200 Balance 137 / 137 -1415 / -1415 -1145 / -1145 80 / 80 Physical Exam Oriented: Normal Eyes: Normal Ear: Normal Nose: Normal Throat: Normal Respiratory: Generalized, Diminished and Rales Cardiovascular: Irregular and Edema : Normal Auscultation: Bowel Sounds: Normal Tenderness: Normal Skin: Normal Musculoskeletal: Normal Psychiatric: Normal Mood Description: Calm and Appropriate Affect: Normal Speech Pattern: Clear and Appropriate Laboratory and Diagnostics 02/12/24 05:28 02/12/24 05:28 Labs: 02/09/24 01:16 Blood Blood Culture - Preliminary 02/09/24 01:10 Blood Blood Culture - Preliminary Laboratory WBC 5.1 X10^3/uL (3.6-10.0) 02/12/24 05:28 RBC 3.84 X10^6/uL (3.5-5.4) 02/12/24 05:28 Hgb 11.6 g/dL (12.0-16.0) L 02/12/24 05:28 Hct 36.1 % (36.0-47.0) 02/12/24 05:28 MCV 94.2 fL (80.0-100.0) 02/12/24 05:28 MCH 30.3 pg (27.0-34.0) 02/12/24 05:28 MCHC 32.2 g/dL (33.0-35.0) L 02/12/24 05:28 RDW 14.7 % (11.6-16.5) 02/12/24 05:28 Plt Count 115 X10^3/uL (150.0-450.0) L 02/12/24 05:28 MPV 10.1 fL (7.4-11.0) 02/12/24 05:28 Neut % (Auto) 83.0 % (42.0-75.0) H 02/12/24 05:28 Lymph % (Auto) 6.3 % (21.0-51.0) L 02/12/24 05:28 [place] % (Auto) 9.0 % (0.0-13.0) 02/12/24 05:28 Eos % (Auto) 1.5 % (0.9-2.9) 02/12/24 05:28 Baso % (Auto) 0.2 % (0.2-1.0) 02/12/24 05:28 Neut # (Auto) 4.3 x10^3/uL (2.2-4.8) 02/12/24 05:28 Lymph # (Auto) 0.3 X10^3/uL (1.3-2.9) L 02/12/24 05:28 [place] # (Auto) 0.5 x10^3/uL (0.3-0.8) 02/12/24 05:28 Eos # (Auto) 0.1 x10^3/uL (0.0-0.2) 02/12/24 05:28 Baso # (Auto) 0.0 X10^3/uL (0.0-0.1) 02/12/24 05:28 Absolute Nucleated RBC 0.1 /100WBC 02/12/24 05:28 D-Dimer 2.01 ug/ml (0.0-0.57) H 02/08/24 22:10 Sample Site Rr 02/08/24 21:57 ABG pH 7.360 (7.35-7.45) 02/08/24 21:57 ABG pCO2 66.0 mmHg (35.0-45.0) H* 02/08/24 21:57 ABG pO2 94.0 mmHg (80.0-100.0) 02/08/24 21:57 ABG HCO3 37.3 mmol/L (22-26) H* 02/08/24 21:57 ABG O2 Saturation 97.0 % (90-100) 02/08/24 21:57 ABG Base Excess 9.5 mmol/L (-2.0-2.0) H 02/08/24 21:57 Kevin Test Pos 02/08/24 21:57 A-a Gradient 52.0 mmHg 02/08/24 21:57 FiO2 32.0 02/08/24 21:57 Blood Gas Comments Sharron well sw 02/08/24 21:57 Sodium 140 mmol/L (136-145) 02/12/24 05:28 Corrected Sodium 140 mmol/L (136-145) 02/12/24 05:28 Potassium 4.3 mmol/L (3.5-5.1) 02/12/24 05:28 Chloride 101 mmol/L (98-107) 02/12/24 05:28 Carbon Dioxide 35.6 mmol/L (21-32) H 02/12/24 05:28 BUN 23 mg/dL (7-18) H 02/12/24 05:28 Creatinine 0.94 mg/dL (0.55-1.02) 02/12/24 05:28 Est GFR (MDRD) Af Amer > 60 (>60) 02/12/24 05:28 Est GFR (MDRD) Non-Af > 60 (>60) 02/12/24 05:28 Glucose 112 mg/dL (65-99) H 02/12/24 05:28 Hemoglobin A1c 5.3 % 02/09/24 04:09 Lactic Acid 0.8 mmol/L (0.4-2.0) 02/09/24 01:10 Calcium 8.2 mg/dL (8.5-10.1) L 02/12/24 05:28 Corrected Calcium 9.6 mg/dL (8.5-10.1) 02/12/24 05:28 Magnesium 1.7 mg/dL (2.0-2.9) L 02/12/24 05:28 Total Bilirubin 0.60 mg/dL (0.2-1.0) 02/12/24 05:28 AST 19 Units/L (15-37) 02/12/24 05:28 ALT 15 Units/L (12-78) 02/12/24 05:28 Alkaline Phosphatase 86 Units/L (46-116) 02/12/24 05:28 Creatine Kinase 44 Units/L (26-192) 02/08/24 22:10 Troponin I High Sens 40.4 ng/L (4.0-60.0) 02/08/24 22:10 B-Natriuretic Peptide 322 pg/mL (0-79) H 02/10/24 05:45 Total Protein 6.1 g/dL (6.4-8.2) L 02/12/24 05:28 Albumin 2.2 g/dL (3.4-5.0) L 02/12/24 05:28 Globulin 3.9 g/dL (2.5-4.5) 02/12/24 05:28 Albumin/Globulin Ratio 0.6 Ratio (1.1-2.1) L 02/12/24 05:28 TSH 3rd Generation 3.145 uIU/mL (0.358-3.74) 02/10/24 09:16 SARS-CoV-2 (PCR) Negative (NEGATIVE) 02/08/24 22:10 Influenza Type A (PCR) Negative (NEGATIVE) 02/08/24 22:10 Influenza Type B (PCR) Negative (NEGATIVE) 02/08/24 22:10 RSV (PCR) Negative (NEGATIVE) 02/08/24 22:10 Resp Viral Panel (PCR) See scanned report 02/09/24 05:00 Plan (1) CHF exacerbation: Status: Acute Qualifiers: Heart failure type: unspecified Qualified Code(s): I50.9 - Heart failure, unspecified Plan: IV lasix (2) Atrial fibrillation with normal ventricular rate: Status: Acute (3) Aneurysm of ascending aorta: Status: Acute Qualifiers: Presence of rupture: without rupture Qualified Code(s): I71.21 - Aneurysm of the ascending aorta, without rupture (4) Pneumonia involving left lung: Status: Acute Qualifiers: Lung location: unspecified part of lung Pneumonia type: due to unspecified organism Qualified Code(s): J18.9 - Pneumonia, unspecified organism Plan: IV Levaquin. (5) Hypoxia: Status: Acute (6) Cardiomyopathy: Status: Acute Qualifiers: Cardiomyopathy type: unspecified Qualified Code(s): I42.9 - Cardiomyopathy, unspecified
[2024-02-12] MEDS: NS 500 ML IV 500 ML IV ONE (20:27)
[2024-02-13 05:35] LABS: BASOPHILS % (AUTO) 0.4 % (0.2-1.0); EOSINOPHILS # (AUTO) 0.1 x10^3/uL (0.0-0.2); EOSINOPHILS % (AUTO) 1.4 % (0.9-2.9); HEMATOCRIT 36.8 % (36.0-47.0); LYMPHOCYTES # (AUTO) 0.3 X10^3/uL (1.3-2.9); LYMPHOCYTES % (AUTO) 6.4 % (21.0-51.0); MEAN CORPUSCULAR HEMOGLOBIN 30.6 pg (27.0-34.0); MEAN CORPUSCULAR HGB CONC 32.7 g/dL (33.0-35.0); MEAN CORPUSCULAR VOLUME 93.6 fL (80.0-100.0); MEAN PLATELET VOLUME 9.9 fL (7.4-11.0); MONOCYTES # (AUTO) 0.4 x10^3/uL (0.3-0.8); MONOCYTES % (AUTO) 8.3 % (0.0-13.0); NEUTROPHILS # (AUTO) 4.1 x10^3/uL (2.2-4.8); NEUTROPHILS % (AUTO) 83.5 % (42.0-75.0); PLATELET COUNT 115 X10^3/uL (150.0-450.0); RED BLOOD COUNT 3.93 X10^6/uL (3.5-5.4); RED CELL DISTRIBUTION WIDTH 14.7 % (11.6-16.5); WHITE BLOOD COUNT 4.9 X10^3/uL (3.6-10.0)
[2024-02-13 05:48] LABS: ALANINE AMINOTRANSFERASE 20 Units/L (12-78); ALBUMIN 2.4 g/dL (3.4-5.0); ALKALINE PHOSPHATASE 96 Units/L (46-116); ASPARTATE AMINO TRANSFERASE 31 Units/L (15-37); BLOOD UREA NITROGEN 21 mg/dL (7-18); CALCIUM 8.5 mg/dL (8.5-10.1); CARBON DIOXIDE 36.1 mmol/L (21-32); CHLORIDE 101 mmol/L (98-107); COR CA(FOR HYPOALB) 9.8 mg/dL (8.5-10.1); CREATININE 0.85 mg/dL (0.55-1.02); GLUCOSE 108 mg/dL (65-99); POTASSIUM 4.3 mmol/L (3.5-5.1); SODIUM 139 mmol/L (136-145); TOTAL PROTEIN 6.4 g/dL (6.4-8.2); eGFR NON BLACK RACES > 60 (>60)
--- NOTE | 2024-02-13 14:14 | NOTE.SOAP ---
Soap Note Note for Day of Date of Exam: 02/13/24 Subjective Data Subjective Data: breathing better- edema better but still significant Objective Data Objective Data: bp 110 p 70 afib- we have taken liters off every day- bun/cr/k stable lungs no crackles decreased bs bases\ ext : still 1-2 plus Assessment Assessment: cardiomyopathy/chf/afib/ TAA not a surgical candidate Plan Plan: change to po lasix then home soon
[2024-02-13] MEDS: LASIX PO SCH (16:36)
[2024-02-13] MEDS: TYLENOL 325 MG TAB PO PRN (20:45)
[2024-02-14 05:54] LABS: BASOPHILS % (AUTO) 0.7 % (0.2-1.0); EOSINOPHILS # (AUTO) 0.1 x10^3/uL (0.0-0.2); EOSINOPHILS % (AUTO) 2.8 % (0.9-2.9); HEMOGLOBIN 11.7 g/dL (12.0-16.0); LYMPHOCYTES # (AUTO) 0.4 X10^3/uL (1.3-2.9); MEAN CORPUSCULAR HEMOGLOBIN 30.3 pg (27.0-34.0); MEAN CORPUSCULAR HGB CONC 32.4 g/dL (33.0-35.0); MEAN CORPUSCULAR VOLUME 93.5 fL (80.0-100.0); MEAN PLATELET VOLUME 10.5 fL (7.4-11.0); MONOCYTES # (AUTO) 0.5 x10^3/uL (0.3-0.8); MONOCYTES % (AUTO) 8.9 % (0.0-13.0); NEUTROPHILS # (AUTO) 4.1 x10^3/uL (2.2-4.8); NEUTROPHILS % (AUTO) 80.6 % (42.0-75.0); PLATELET COUNT 113 X10^3/uL (150.0-450.0); RED BLOOD COUNT 3.85 X10^6/uL (3.5-5.4); RED CELL DISTRIBUTION WIDTH 14.5 % (11.6-16.5); WHITE BLOOD COUNT 5.1 X10^3/uL (3.6-10.0)
[2024-02-14 06:17] LABS: ALANINE AMINOTRANSFERASE 23 Units/L (12-78); ALBUMIN 2.2 g/dL (3.4-5.0); ALKALINE PHOSPHATASE 91 Units/L (46-116); ASPARTATE AMINO TRANSFERASE 27 Units/L (15-37); BLOOD UREA NITROGEN 21 mg/dL (7-18); CALCIUM 8.5 mg/dL (8.5-10.1); CARBON DIOXIDE 37.8 mmol/L (21-32); CHLORIDE 101 mmol/L (98-107); COR CA(FOR HYPOALB) 9.9 mg/dL (8.5-10.1); COR NA(FOR HYPERGLY) 140 mmol/L (136-145); CREATININE 0.82 mg/dL (0.55-1.02); GLUCOSE 111 mg/dL (65-99); POTASSIUM 4.1 mmol/L (3.5-5.1); SODIUM 140 mmol/L (136-145); TOTAL PROTEIN 6.1 g/dL (6.4-8.2); eGFR NON BLACK RACES > 60 (>60)
--- NOTE | 2024-02-14 06:36 | PCM.PROG ---
Progress Note Progress Note for Day of Date of Exam: 02/13/24 Subjective Subjective: Patient is resting comfortably in bed. She is currently on 2L NC. She is admitted for CHF exacerbation and pneumonia. She also had atrial fibrillation with RVR. Cardiology has been consulted. She has had good UOP. She does have a zaidi in place. No acute events overnight. Labs/imaging reviewed - Hgb 12, Plt 115, Cr: 0.85 - CXR(02/11/24): no acute changes. - CTPE: no PE, b/l pleural effusions and cardiomegaly noted. Ascending thoracic aneurysm 6cm. - ECHO: EF 25% Plan: follow cardiology recommendations, monitor I&Os, daily weights. Diuresis with IV lasix. Will change to PO lasix today. Continue Coreg and Diltiazem doses adjusted as per cardio. Replace electrolytes as per protocol. Continue levaquin and bronchodilators. Wean O2 as tolerated. Continue telemetry. Continue home medications. PT as tolerated. Monitor AM labs/imaging. Past Medical Family Social History Allergies: Allergies macadamia nut oil Allergy (Verified 03/05/23 22:11) Review of Systems ROS changes noted: see HPI Vital Signs and I&O's Vital Signs: Vital Signs Temperature 97.6 F Temperature 97.6 F Pulse Rate [Right Brachial] 65 Pulse Rate [Right Brachial] 70 Pulse Rate 75 Respiratory Rate 20 Respiratory Rate 20 Blood Pressure [Left Arm] 107/58 Blood Pressure [Left Arm] 132/63 O2 Sat by Pulse Oximetry 98 O2 Sat by Pulse Oximetry 97 O2 Sat by Pulse Oximetry 96 Intake and Output: Intake & Output 02/11/24 02/12/24 02/13/24 02/14/24 23:59 23:59 23:59 23:59 Intake Total 1355 / 1355 1093 / 1093 2494 / 2494 730 / 730 Output Total 2500 / 2500 1200 / 1200 2080 / 2080 500 / 500 Balance -1145 / -1145 -107 / -107 414 / 414 230 / 230 Physical Exam Oriented: Normal Eyes: Normal Ear: Normal Nose: Normal Throat: Normal Respiratory: Generalized and Diminished Cardiovascular: Irregular : Normal Auscultation: Bowel Sounds: Normal Tenderness: Normal Skin: Normal Musculoskeletal: Normal Psychiatric: Normal Mood Description: Calm and Appropriate Affect: Normal Speech Pattern: Clear and Appropriate Laboratory and Diagnostics 02/14/24 05:30 02/14/24 05:30 Labs: 02/09/24 01:16 Blood Blood Culture - Preliminary 02/09/24 01:10 Blood Blood Culture - Preliminary Laboratory WBC 5.1 X10^3/uL (3.6-10.0) 02/14/24 05:30 RBC 3.85 X10^6/uL (3.5-5.4) 02/14/24 05:30 Hgb 11.7 g/dL (12.0-16.0) L 02/14/24 05:30 Hct 36.0 % (36.0-47.0) 02/14/24 05:30 MCV 93.5 fL (80.0-100.0) 02/14/24 05:30 MCH 30.3 pg (27.0-34.0) 02/14/24 05:30 MCHC 32.4 g/dL (33.0-35.0) L 02/14/24 05:30 RDW 14.5 % (11.6-16.5) 02/14/24 05:30 Plt Count 113 X10^3/uL (150.0-450.0) L 02/14/24 05:30 MPV 10.5 fL (7.4-11.0) 02/14/24 05:30 Neut % (Auto) 80.6 % (42.0-75.0) H 02/14/24 05:30 Lymph % (Auto) 7.0 % (21.0-51.0) L 02/14/24 05:30 [place] % (Auto) 8.9 % (0.0-13.0) 02/14/24 05:30 Eos % (Auto) 2.8 % (0.9-2.9) 02/14/24 05:30 Baso % (Auto) 0.7 % (0.2-1.0) 02/14/24 05:30 Neut # (Auto) 4.1 x10^3/uL (2.2-4.8) 02/14/24 05:30 Lymph # (Auto) 0.4 X10^3/uL (1.3-2.9) L 02/14/24 05:30 [place] # (Auto) 0.5 x10^3/uL (0.3-0.8) 02/14/24 05:30 Eos # (Auto) 0.1 x10^3/uL (0.0-0.2) 02/14/24 05:30 Baso # (Auto) 0.0 X10^3/uL (0.0-0.1) 02/14/24 05:30 Absolute Nucleated RBC 0.0 /100WBC 02/14/24 05:30 D-Dimer 2.01 ug/ml (0.0-0.57) H 02/08/24 22:10 Sample Site Rr 02/08/24 21:57 ABG pH 7.360 (7.35-7.45) 02/08/24 21:57 ABG pCO2 66.0 mmHg (35.0-45.0) H* 02/08/24 21:57 ABG pO2 94.0 mmHg (80.0-100.0) 02/08/24 21:57 ABG HCO3 37.3 mmol/L (22-26) H* 02/08/24 21:57 ABG O2 Saturation 97.0 % (90-100) 02/08/24 21:57 ABG Base Excess 9.5 mmol/L (-2.0-2.0) H 02/08/24 21:57 Kevin Test Pos 02/08/24 21:57 A-a Gradient 52.0 mmHg 02/08/24 21:57 FiO2 32.0 02/08/24 21:57 Blood Gas Comments Sharron well sw 02/08/24 21:57 Sodium 140 mmol/L (136-145) 02/14/24 05:30 Corrected Sodium 140 mmol/L (136-145) 02/14/24 05:30 Potassium 4.1 mmol/L (3.5-5.1) 02/14/24 05:30 Chloride 101 mmol/L (98-107) 02/14/24 05:30 Carbon Dioxide 37.8 mmol/L (21-32) H 02/14/24 05:30 BUN 21 mg/dL (7-18) H 02/14/24 05:30 Creatinine 0.82 mg/dL (0.55-1.02) 02/14/24 05:30 Est GFR (MDRD) Af Amer > 60 (>60) 02/14/24 05:30 Est GFR (MDRD) Non-Af > 60 (>60) 02/14/24 05:30 Glucose 111 mg/dL (65-99) H 02/14/24 05:30 Hemoglobin A1c 5.3 % 02/09/24 04:09 Lactic Acid 0.8 mmol/L (0.4-2.0) 02/09/24 01:10 Calcium 8.5 mg/dL (8.5-10.1) 02/14/24 05:30 Corrected Calcium 9.9 mg/dL (8.5-10.1) 02/14/24 05:30 Magnesium 2.0 mg/dL (2.0-2.9) 02/13/24 05:20 Total Bilirubin 0.60 mg/dL (0.2-1.0) 02/14/24 05:30 AST 27 Units/L (15-37) 02/14/24 05:30 ALT 23 Units/L (12-78) 02/14/24 05:30 Alkaline Phosphatase 91 Units/L (46-116) 02/14/24 05:30 Creatine Kinase 44 Units/L (26-192) 02/08/24 22:10 Troponin I High Sens 40.4 ng/L (4.0-60.0) 02/08/24 22:10 B-Natriuretic Peptide 322 pg/mL (0-79) H 02/10/24 05:45 Total Protein 6.1 g/dL (6.4-8.2) L 02/14/24 05:30 Albumin 2.2 g/dL (3.4-5.0) L 02/14/24 05:30 Globulin 3.9 g/dL (2.5-4.5) 02/14/24 05:30 Albumin/Globulin Ratio 0.6 Ratio (1.1-2.1) L 02/14/24 05:30 TSH 3rd Generation 3.145 uIU/mL (0.358-3.74) 02/10/24 09:16 SARS-CoV-2 (PCR) Negative (NEGATIVE) 02/08/24 22:10 Influenza Type A (PCR) Negative (NEGATIVE) 02/08/24 22:10 Influenza Type B (PCR) Negative (NEGATIVE) 02/08/24 22:10 RSV (PCR) Negative (NEGATIVE) 02/08/24 22:10 Resp Viral Panel (PCR) See scanned report 02/09/24 05:00 Plan (1) CHF exacerbation: Status: Acute Qualifiers: Heart failure type: unspecified Qualified Code(s): I50.9 - Heart failure, unspecified Plan: IV lasix (2) Atrial fibrillation with normal ventricular rate: Status: Acute Plan: Started on Coreg, Cardizem, Eliquis, consult cardiology, order echo. (3) Aneurysm of ascending aorta: Status: Acute Qualifiers: Presence of rupture: without rupture Qualified Code(s): I71.21 - Aneurysm of the ascending aorta, without rupture (4) Pneumonia involving left lung: Status: Acute Qualifiers: Lung location: unspecified part of lung Pneumonia type: due to unspecified organism Qualified Code(s): J18.9 - Pneumonia, unspecified organism Plan: IV Levaquin. (5) Hypoxia: Status: Acute (6) Cardiomyopathy: Status: Acute Qualifiers: Cardiomyopathy type: unspecified Qualified Code(s): I42.9 - Cardiomyopathy, unspecified
--- NOTE | 2024-02-14 08:21 | NOTE.SOAP ---
Soap Note Note for Day of Date of Exam: 02/14/24 Subjective Data Subjective Data: sob better- edema persists- changed to po lasix yesterday Objective Data Objective Data: 110 bp p 70s afib- lungs : decreased bs bases- better than yesterday no crackles edema- still 2 plus labs: bun/cr/k all stable Assessment Assessment: cardiomyopathy/chf/afib/TAA Plan Plan: on great meds: doac/bb/ccb/lasix /K- will see how she does at home- f/u 7-10 days with me
[2024-02-14 11:53] VITALS: BP 108/62; PULSE 71; RESP 19; TEMP 97; O2SAT 93
--- NOTE | 2024-02-18 09:29 | W.DIS.FURT ---
Summary of Discharge Discharge Summary of Date Date of Exam: 02/14/24 Admission Date Date of Admission: 02/08/24 Admission Diagnosis Patient Problems (Updated 02/10/24 @ 10:19 by Deanna Chavez) Aneurysm of ascending aorta (Acute) I71.21 Pneumonia involving left lung (Acute) J18.9 Atrial fibrillation with RVR (Acute) I48.91 Hypoxia (Acute) R09.02 Hospital Course: Patient is a 78 year old female admitted for CHF exacerbation, pneumonia, and atrial fibrillation with RVR. She required 2L NC supplemental oxygen. Cardiology was consulted. Her hospital/treatment course included monitoring I&Os, daily weights. Diuresis with IV lasix that was later changed to PO lasix. New medications were added that included Coreg and Diltiazem and doses adjusted as per cardiology. Electrolytes repleted. Patient completed a course of levaquin. Patient responded to treatments and symptoms significantly improved. She was discharged in stable condition, home oxygen set up, home health set up, instructed follow-up with her PCP and cardiology in 1 week. - CTPE: no PE, b/l pleural effusions and cardiomegaly noted. Ascending thoracic aneurysm 6cm. - ECHO: EF 25% Vital Signs: Vital Signs (72 hours) 02/10/24 12:00 02/10/24 12:25 02/10/24 16:00 Temperature 97.6 F 97.2 F L Pulse Rate Pulse Rate [Right Brachial] 79 67 Respiratory Rate 19 20 Blood Pressure Blood Pressure [Left Arm] 110/60 109/53 O2 Sat by Pulse Oximetry 93 L 97 Oxygen Delivery Method Nasal Cannula Nasal Cannula Nasal Cannula Oxygen Flow Rate 3 2 3 FIO2% 28 02/10/24 19:00 02/10/24 20:48 02/10/24 20:48 Temperature Pulse Rate 72 Pulse Rate [Right Brachial] Respiratory Rate 20 Blood Pressure Blood Pressure [Left Arm] O2 Sat by Pulse Oximetry 97 Oxygen Delivery Method Nasal Cannula Nasal Cannula Oxygen Flow Rate 3 3 FIO2% 28 02/10/24 20:00 02/10/24 23:56 02/11/24 03:15 Temperature 97.8 F 97.5 F L 97.9 F Pulse Rate Pulse Rate [Right Brachial] 70 64 72 Respiratory Rate 20 20 20 Blood Pressure Blood Pressure [Left Arm] 105/65 102/52 100/62 O2 Sat by Pulse Oximetry 96 96 95 Oxygen Delivery Method Nasal Cannula Nasal Cannula Nasal Cannula Oxygen Flow Rate 3 3 3 FIO2% 02/11/24 07:34 02/11/24 07:00 02/11/24 08:00 Temperature 97.9 F 97.3 F L Pulse Rate Pulse Rate [Right Brachial] 78 Respiratory Rate 20 18 Blood Pressure 130/88 Blood Pressure [Left Arm] 103/54 O2 Sat by Pulse Oximetry 95 96 Oxygen Delivery Method Nasal Cannula Nasal Cannula Nasal Cannula Oxygen Flow Rate 2 3 3 FIO2% 02/11/24 09:00 02/11/24 09:00 02/11/24 11:37 Temperature Pulse Rate 73 Pulse Rate [Right Brachial] Respiratory Rate Blood Pressure Blood Pressure [Left Arm] O2 Sat by Pulse Oximetry 96 93 L Oxygen Delivery Method Nasal Cannula Oxygen Flow Rate 2 FIO2% 28 02/11/24 12:00 02/11/24 16:00 02/11/24 20:37 Temperature 97.9 F 98.0 F Pulse Rate 78 Pulse Rate [Right Brachial] 74 78 Respiratory Rate 19 20 Blood Pressure Blood Pressure [Left Arm] 115/53 105/53 O2 Sat by Pulse Oximetry 97 98 98 Oxygen Delivery Method Nasal Cannula Nasal Cannula Oxygen Flow Rate 3 3 FIO2% 02/11/24 19:00 02/11/24 20:00 02/12/24 00:00 Temperature 97.5 F L 97.6 F Pulse Rate Pulse Rate [Right Brachial] 70 66 Respiratory Rate 20 20 Blood Pressure Blood Pressure [Left Arm] 107/53 93/51 O2 Sat by Pulse Oximetry 93 L 97 Oxygen Delivery Method Nasal Cannula Nasal Cannula Nasal Cannula Oxygen Flow Rate 3 3 3 FIO2% 02/12/24 04:00 02/12/24 08:00 02/12/24 07:00 Temperature 97.6 F 97.6 F Pulse Rate Pulse Rate [Right Brachial] 69 84 Respiratory Rate 20 18 Blood Pressure Blood Pressure [Left Arm] 90/50 103/57 O2 Sat by Pulse Oximetry 95 96 Oxygen Delivery Method Nasal Cannula Nasal Cannula Nasal Cannula Oxygen Flow Rate 3 3 3 FIO2% 02/12/24 09:33 02/12/24 09:33 02/12/24 12:00 Temperature 97.2 F L Pulse Rate 84 Pulse Rate [Right Brachial] 79 Respiratory Rate 16 Blood Pressure Blood Pressure [Left Arm] 127/71 O2 Sat by Pulse Oximetry 96 93 L Oxygen Delivery Method Nasal Cannula Nasal Cannula Oxygen Flow Rate 2 3 FIO2% 28 02/12/24 16:00 02/12/24 20:12 02/12/24 20:13 Temperature 97.0 F L Pulse Rate 67 Pulse Rate [Right Brachial] 60 Respiratory Rate 18 Blood Pressure Blood Pressure [Left Arm] 91/53 O2 Sat by Pulse Oximetry 95 98 Oxygen Delivery Method Nasal Cannula Nasal Cannula Oxygen Flow Rate 3 2 FIO2% 28 02/12/24 20:00 02/12/24 19:00 02/13/24 00:17 Temperature 97.7 F Pulse Rate 66 Pulse Rate [Right Brachial] 72 Respiratory Rate 20 Blood Pressure Blood Pressure [Left Arm] 115/60 O2 Sat by Pulse Oximetry 95 98 Oxygen Delivery Method Nasal Cannula Nasal Cannula Oxygen Flow Rate 2 2 FIO2% 02/13/24 00:00 02/13/24 04:00 02/13/24 06:08 Temperature 97.9 F 98 F Pulse Rate 69 Pulse Rate [Right Brachial] 67 65 Respiratory Rate 19 20 Blood Pressure Blood Pressure [Left Arm] 104/63 102/53 O2 Sat by Pulse Oximetry 97 95 98 Oxygen Delivery Method Nasal Cannula Nasal Cannula Oxygen Flow Rate 2 2 FIO2% 02/13/24 07:00 02/13/24 08:35 02/13/24 08:36 Temperature Pulse Rate 78 Pulse Rate [Right Brachial] Respiratory Rate Blood Pressure Blood Pressure [Left Arm] O2 Sat by Pulse Oximetry 93 L Oxygen Delivery Method Nasal Cannula Nasal Cannula Oxygen Flow Rate 3 2 FIO2% 28 Labs: Laboratory Last Values WBC 4.9 X10^3/uL (3.6-10.0) 02/13/24 05:20 RBC 3.93 X10^6/uL (3.5-5.4) 02/13/24 05:20 Hgb 12.0 g/dL (12.0-16.0) 02/13/24 05:20 Hct 36.8 % (36.0-47.0) 02/13/24 05:20 MCV 93.6 fL (80.0-100.0) 02/13/24 05:20 MCH 30.6 pg (27.0-34.0) 02/13/24 05:20 MCHC 32.7 g/dL (33.0-35.0) L 02/13/24 05:20 RDW 14.7 % (11.6-16.5) 02/13/24 05:20 Plt Count 115 X10^3/uL (150.0-450.0) L 02/13/24 05:20 MPV 9.9 fL (7.4-11.0) 02/13/24 05:20 Neut % (Auto) 83.5 % (42.0-75.0) H 02/13/24 05:20 Lymph % (Auto) 6.4 % (21.0-51.0) L 02/13/24 05:20 [place] % (Auto) 8.3 % (0.0-13.0) 02/13/24 05:20 Eos % (Auto) 1.4 % (0.9-2.9) 02/13/24 05:20 Baso % (Auto) 0.4 % (0.2-1.0) 02/13/24 05:20 Neut # (Auto) 4.1 x10^3/uL (2.2-4.8) 02/13/24 05:20 Lymph # (Auto) 0.3 X10^3/uL (1.3-2.9) L 02/13/24 05:20 [place] # (Auto) 0.4 x10^3/uL (0.3-0.8) 02/13/24 05:20 Eos # (Auto) 0.1 x10^3/uL (0.0-0.2) 02/13/24 05:20 Baso # (Auto) 0.0 X10^3/uL (0.0-0.1) 02/13/24 05:20 Absolute Nucleated RBC 0.1 /100WBC 02/13/24 05:20 D-Dimer 2.01 ug/ml (0.0-0.57) H 02/08/24 22:10 Sample Site Rr 02/08/24 21:57 ABG pH 7.360 (7.35-7.45) 02/08/24 21:57 ABG pCO2 66.0 mmHg (35.0-45.0) H* 02/08/24 21:57 ABG pO2 94.0 mmHg (80.0-100.0) 02/08/24 21:57 ABG HCO3 37.3 mmol/L (22-26) H* 02/08/24 21:57 ABG O2 Saturation 97.0 % (90-100) 02/08/24 21:57 ABG Base Excess 9.5 mmol/L (-2.0-2.0) H 02/08/24 21:57 Kevin Test Pos 02/08/24 21:57 A-a Gradient 52.0 mmHg 02/08/24 21:57 FiO2 32.0 02/08/24 21:57 Blood Gas Comments Sharron well sw 02/08/24 21:57 Sodium 139 mmol/L (136-145) 02/13/24 05:20 Corrected Sodium TNP 02/13/24 05:20 Potassium 4.3 mmol/L (3.5-5.1) 02/13/24 05:20 Chloride 101 mmol/L (98-107) 02/13/24 05:20 Carbon Dioxide 36.1 mmol/L (21-32) H 02/13/24 05:20 BUN 21 mg/dL (7-18) H 02/13/24 05:20 Creatinine 0.85 mg/dL (0.55-1.02) 02/13/24 05:20 Est GFR (MDRD) Af Amer > 60 (>60) 02/13/24 05:20 Est GFR (MDRD) Non-Af > 60 (>60) 02/13/24 05:20 Glucose 108 mg/dL (65-99) H 02/13/24 05:20 Hemoglobin A1c 5.3 % 02/09/24 04:09 Lactic Acid 0.8 mmol/L (0.4-2.0) 02/09/24 01:10 Calcium 8.5 mg/dL (8.5-10.1) 02/13/24 05:20 Corrected Calcium 9.8 mg/dL (8.5-10.1) 02/13/24 05:20 Magnesium 2.0 mg/dL (2.0-2.9) 02/13/24 05:20 Total Bilirubin 0.60 mg/dL (0.2-1.0) 02/13/24 05:20 AST 31 Units/L (15-37) 02/13/24 05:20 ALT 20 Units/L (12-78) 02/13/24 05:20 Alkaline Phosphatase 96 Units/L (46-116) 02/13/24 05:20 Creatine Kinase 44 Units/L (26-192) 02/08/24 22:10 Troponin I High Sens 40.4 ng/L (4.0-60.0) 02/08/24 22:10 B-Natriuretic Peptide 322 pg/mL (0-79) H 02/10/24 05:45 Total Protein 6.4 g/dL (6.4-8.2) 02/13/24 05:20 Albumin 2.4 g/dL (3.4-5.0) L 02/13/24 05:20 Globulin 4.0 g/dL (2.5-4.5) 02/13/24 05:20 Albumin/Globulin Ratio 0.6 Ratio (1.1-2.1) L 02/13/24 05:20 TSH 3rd Generation 3.145 uIU/mL (0.358-3.74) 02/10/24 09:16 SARS-CoV-2 (PCR) Negative (NEGATIVE) 02/08/24 22:10 Influenza Type A (PCR) Negative (NEGATIVE) 02/08/24 22:10 Influenza Type B (PCR) Negative (NEGATIVE) 02/08/24 22:10 RSV (PCR) Negative (NEGATIVE) 02/08/24 22:10 Resp Viral Panel (PCR) See scanned report 02/09/24 05:00 Reason For Visit: SEPSIS, PNEU, HYPOXIA, AFIB W/RVR Discharge Date Discharge Date: 02/14/24 Discharge Diagnosis All Active Problems (Updated 02/10/24 @ 10:19 by Deanna Chavez) Cardiomyopathy (Acute) CHF exacerbation (Acute) Aneurysm of ascending aorta (Acute) Atrial fibrillation with normal ventricular rate (Acute) COVID-19 (Acute) D-dimer, elevated (Acute) Hypokalemia (Acute) Pneumonia involving left lung (Acute) Atrial fibrillation with RVR (Acute) Hypoxia (Acute) Plan of Treatment: Continue with present treatment and follow up plan. Pt is to keep follow up appointment as instructed and take medications as ordered. Discharge Medications Discharge Medications: macadamia nut oil Allergy (Verified 03/05/23 22:11) CONTINUE taking the following medications NK 02/09/24 [History] Discharge Plan Discharge Plan Hospital Course: Patient is a 78 year old female admitted for CHF exacerbation, pneumonia, and atrial fibrillation with RVR. She required 2L NC supplemental oxygen. Cardiology was consulted. Her hospital/treatment course included monitoring I&Os, daily weights. Diuresis with IV lasix that was later changed to PO lasix. New medications were added that included Coreg and Diltiazem and doses adjusted as per cardiology. Electrolytes repleted. Patient completed a course of levaquin. Patient responded to treatments and symptoms significantly improved. She was discharged in stable condition, home oxygen set up, home health set up, in structed follow-up with her PCP and cardiology in 1 week. - CTPE: no PE, b/l pleural effusions and cardiomegaly noted. Ascending thoracic aneurysm 6cm. - ECHO: EF 25% Patient Disposition: HOME HEALTH SERVICE Condition: Stable Health Concerns: Post Hospitalization: new medications and changes needed to prevent readmission or further decline. Pt educated and given instructions on all concerns. Care Plan Goals: Problem: Infection Goal: Temperature within normal limits. Resolved infection. Instructions: Follow provided instructions. Follow up with primary physician as directed. Contact primary care physician or report to the closest Emergency Room if condition worsens. Plan of Treatment: Continue with present treatment and follow up plan. Pt is to keep follow up appointment as instructed and take medications as ordered. Prescriptions: New furosemide 40 mg Tablet 40 mg PO BID@0900,1700 30 Days Qty: 60 0RF carvedilol 25 mg Tablet 12.5 mg PO BID 30 Days Qty: 30 0RF potassium chloride [Klor-Con M20] 20 mEq Tablet,Er Particles/Crystals 20 meq PO DAILY 30 Days Qty: 30 0RF diltiazem HCl 120 mg Capsule,Extended Release 24hr 120 mg PO DAILY 30 Days Qty: 30 0RF Eliquis 5 mg Tablet 5 mg PO BID 30 Days Qty: 60 0RF Follow ups/Referrals Follow ups/Referrals: SHASHI SHEPPARD [STAFF PHYSICIAN] - Alessio English [STAFF PHYSICIAN] - 02/21/24 12:00 pm DEB JOYA [STAFF PHYSICIAN] - 02/24/24 10:40 am Instructions Instructions: Hypoxia, Heart Failure, Self-Care, [id number], Preventing Heart Failure, Atrial Fibrillation, [id number], Community-Acquired Pneumonia, Adult, [id number] Stand Alone Forms: Post Hospital Follow Up Care
== END 2024-02-14 12:05 | disposition home health service (06) | DRG 194 ==
LOC: ER 21:51 → MED/SURG 02-09 04:08
PROVIDERS: ADMIT Family Medicine; ATTEND Family Medicine

== ENCOUNTER 2024-02-28 09:35 | Observation (INO) ==
--- NOTE | 2024-02-28 09:59 | EKG ---
Test Reason : short of breath Blood Pressure : */* mmHG Vent. Rate : 133 BPM Atrial Rate : 147 BPM P-R Int : * ms QRS Dur : 102 ms QT Int : 328 ms P-R-T Axes : * -3 132 degrees QTc Int : 488 ms Atrial fibrillation Abnormal ECG When compared with ECG of 08-FEB-2024 22:12, ST now depressed in Anterolateral leads Confirmed by Popeye Call MD ([id number]) on 02/29/2024 8:31:25 AM Referred By: Confirmed By: Popeye Call MD
--- NOTE | 2024-02-28 10:00 | DR.SOBA ---
HPI Time Seen Time Seen by Provider: 02/28/24 09:40 Complaints Chief Complaint Doctors Comments: Shortness of breath for 2 to 3 days that got worse at about 7 AM today. Was recently diagnosed with congestive heart failure PMH PMH Past Medical History: Diabetes and Hypertension Past Surgical History: Yes Surgical History: Cholecystectomy and Mastectomy Family History Family Medical History: Cancer Social History Do you use any recreational Drugs:: No ROS Review of Systems Constitutional: Other (Shortness of breath) Eyes: No Symptoms Reported ENTM: No Symptoms Reported Respiratoy: Short of Breath Cardiovascular: Palpitations Gastrointestinal/Abdominal: No Symptoms Reported Genitourinary: No Symptoms Reported Neurological: Anxiety Musculoskeletal: No Symptoms Reported Integumentary: No Symptoms Reported Hematologic/Lymphatic: No Symptoms Reported Endocrine: No Symptoms Reported Psychiatric: Anxiety PE Vital Signs Vitals: Vital Signs Pulse Rate 118 Pulse Rate 120 Pulse Rate 113 Pulse Rate 113 Pulse Rate 121 Pulse Rate 115 Pulse Rate 107 Pulse Rate 113 Pulse Rate 117 Pulse Rate 116 Pulse Rate 128 Pulse Rate 124 Pulse Rate 116 Pulse Rate 114 Pulse Rate 116 Pulse Rate 117 Pulse Rate 110 Pulse Rate 111 Pulse Rate 122 Pulse Rate 113 Pulse Rate 112 Pulse Rate 117 Pulse Rate 119 Pulse Rate 117 Pulse Rate 121 Pulse Rate 117 Pulse Rate 117 Pulse Rate 119 Pulse Rate 114 Pulse Rate 128 Pulse Rate 122 Pulse Rate 118 Pulse Rate 119 Pulse Rate 117 Pulse Rate 117 Pulse Rate 115 Pulse Rate 114 Pulse Rate 114 Pulse Rate 121 Pulse Rate 122 Pulse Rate 119 Pulse Rate 105 Pulse Rate 109 Pulse Rate 107 Respiratory Rate 34 Respiratory Rate 33 Respiratory Rate 35 Respiratory Rate 33 Respiratory Rate 34 Respiratory Rate 33 Respiratory Rate 30 Respiratory Rate 34 Respiratory Rate 34 Respiratory Rate 31 Respiratory Rate 32 Respiratory Rate 39 Respiratory Rate 46 Respiratory Rate 41 Respiratory Rate 31 Respiratory Rate 42 Respiratory Rate 36 Respiratory Rate 51 Respiratory Rate 38 Respiratory Rate 33 Respiratory Rate 38 Respiratory Rate 35 Respiratory Rate 32 Respiratory Rate 45 Respiratory Rate 41 Respiratory Rate 37 Respiratory Rate 25 Respiratory Rate 31 Respiratory Rate 30 Respiratory Rate 37 Respiratory Rate 27 Respiratory Rate 29 Respiratory Rate 31 Respiratory Rate 27 Respiratory Rate 27 Respiratory Rate 19 Respiratory Rate 30 Respiratory Rate 29 Respiratory Rate 24 Respiratory Rate 28 Respiratory Rate 43 Respiratory Rate 22 Respiratory Rate 21 Respiratory Rate 26 Blood Pressure 176/97 Blood Pressure 164/78 Blood Pressure 211/96 Blood Pressure 148/102 Blood Pressure 138/93 Blood Pressure 165/77 Blood Pressure 159/90 Blood Pressure 200/104 Blood Pressure 181/103 Blood Pressure 166/105 Blood Pressure 164/72 Blood Pressure 168/81 Blood Pressure 155/102 Blood Pressure 155/102 Blood Pressure 161/77 Blood Pressure 156/84 Blood Pressure 156/84 Blood Pressure 156/84 Blood Pressure 156/84 Blood Pressure 135/80 O2 Sat by Pulse Oximetry 96 O2 Sat by Pulse Oximetry 95 O2 Sat by Pulse Oximetry 97 O2 Sat by Pulse Oximetry 92 O2 Sat by Pulse Oximetry 97 O2 Sat by Pulse Oximetry 95 O2 Sat by Pulse Oximetry 95 O2 Sat by Pulse Oximetry 95 O2 Sat by Pulse Oximetry 95 O2 Sat by Pulse Oximetry 88 O2 Sat by Pulse Oximetry 84 O2 Sat by Pulse Oximetry 91 O2 Sat by Pulse Oximetry 99 O2 Sat by Pulse Oximetry 94 O2 Sat by Pulse Oximetry 95 O2 Sat by Pulse Oximetry 95 O2 Sat by Pulse Oximetry 90 O2 Sat by Pulse Oximetry 95 O2 Sat by Pulse Oximetry 92 O2 Sat by Pulse Oximetry 93 O2 Sat by Pulse Oximetry 93 O2 Sat by Pulse Oximetry 95 O2 Sat by Pulse Oximetry 94 O2 Sat by Pulse Oximetry 92 O2 Sat by Pulse Oximetry 96 O2 Sat by Pulse Oximetry 96 O2 Sat by Pulse Oximetry 91 O2 Sat by Pulse Oximetry 95 O2 Sat by Pulse Oximetry 94 O2 Sat by Pulse Oximetry 96 O2 Sat by Pulse Oximetry 98 O2 Sat by Pulse Oximetry 98 O2 Sat by Pulse Oximetry 96 O2 Sat by Pulse Oximetry 97 O2 Sat by Pulse Oximetry 97 O2 Sat by Pulse Oximetry 93 O2 Sat by Pulse Oximetry 82 O2 Sat by Pulse Oximetry 76 O2 Sat by Pulse Oximetry 95 O2 Sat by Pulse Oximetry 91 O2 Sat by Pulse Oximetry 95 O2 Sat by Pulse Oximetry 97 O2 Sat by Pulse Oximetry 96 O2 Sat by Pulse Oximetry 96 General Limitations: Physical Limitation (inability to ambulate secondary to morbid obesity and chf.) General Appearance: In Distress (moderate distress) Head Head Exam: Normal Inspection, Atraumatic and Normocephalic Eyes Eye exam: Normal Appearance, PERRL and EOMI ENT ENT Exam: Normal Exam and Normal Oropharynx Neck Neck Exam: Normal Inspection, Full ROM and Trachea Midline Chest Chest Inspection: Normal Inspection Respiratory Respiratory Exam: Respiratory Distress Respiratory Exam: Bilateral: Rhonchi Cardiovascular Cardiovascular Exam: Irregular Rhythm Abdominal Exam Abdominal Exam: Normal Inspection and Normal Bowel Sounds Extremities Extremities Exam: Normal Inspection Back Back Exam: Normal Inspection Neurologic Neurological Exam: Alert and Oriented X3 Psychiatric Psychiatric Exam: Agitated Skin Skin Exam: Warm, Dry and Intact MDM Differential Diagnosis Differential Diagnosis: CHF, Dysrhythmia, Mycardial Infarction, Pneumonia, Respiratory Insufficiency, URI and Other (afib) COURSE Treatment Treatment: Patient was in some respiratory distress when she first got here we did put on initially oxygen 4 L/min and her O2 sat came up to 98%. She was obviously having some Rales we were able to get a IV and she was given of 40 of Lasix IV and she put out about initially 1800 cc of urine. We did do cardiac workup on the troponin was 25.5 EKG initially showed an undetermined rhythm appeared to be solid make between A-fib sinus rhythm with PVCs. We did do ABG and pH was 7.38 pCO2 was 58 pO2 it was 83 bicarb was 34.3 oxygen was 96% all we did some metabolic panel was pretty much normal she had glucose 158 and a GFR was greater than 60 we did a CBC that showed WBC of just only 8.1 rest of the n ormal relatively fine the patient did have a chest x-ray does show cardiomegaly with venous congestion. Also had what appeared there is an and her ascending aorta of about 6 cm. Patient magnesium was a little low at 1.9 and her BNP was 1130. After the patient was diuresed she seemed to be breathing a bit better she was placed on BiPAP for a while and that seemed to help her breathing even better we did put her back on oxygen at 2 L/min and she seems to be maintaining at 94 to 96%. Did do a second set of cardiac enzymes and EKG EKG at this time showed A-fib with RVR with a rate about 120. Since it was not that high we did not give her any Cardizem at this time. The nurse Jillian called Dr. Lorenzana he responded back at 1805 and he spoke only to the nurse and gave her all the admission orders and never had a conversation with me about this patient. However he did say he would accept the patient for admission to the floor for CHF exacerbation and atrial fibrillation. He did give the nurse orders that he would like for this patient to be admitted with. The nurse call utilization review and they said the patient could be referred to observation for CHF exacerbation and for A-fib. The patient was advised of the intent to admit and was agreeable to the observation ROR Labs Reviewed Laboratory Results Reviewed?: Yes 02/28/24 09:54 02/28/24 09:54 Laboratory: WBC 8.1 X10^3/uL (3.6-10.0) 02/28/24 09:54 RBC 4.31 X10^6/uL (3.5-5.4) 02/28/24 09:54 Hgb 13.2 g/dL (12.0-16.0) 02/28/24 09:54 Hct 40.5 % (36.0-47.0) 02/28/24 09:54 MCV 93.8 fL (80.0-100.0) 02/28/24 09:54 MCH 30.7 pg (27.0-34.0) 02/28/24 09:54 MCHC 32.7 g/dL (33.0-35.0) L 02/28/24 09:54 RDW 15.0 % (11.6-16.5) 02/28/24 09:54 Plt Count 165 X10^3/uL (150.0-450.0) 02/28/24 09:54 MPV 10.1 fL (7.4-11.0) 02/28/24 09:54 Neut % (Auto) 85.0 % (42.0-75.0) H 02/28/24 09:54 Lymph % (Auto) 8.2 % (21.0-51.0) L 02/28/24 09:54 [place] % (Auto) 5.5 % (0.0-13.0) 02/28/24 09:54 Eos % (Auto) 0.8 % (0.9-2.9) L 02/28/24 09:54 Baso % (Auto) 0.5 % (0.2-1.0) 02/28/24 09:54 Neut # (Auto) 6.9 x10^3/uL (2.2-4.8) H 02/28/24 09:54 Lymph # (Auto) 0.7 X10^3/uL (1.3-2.9) L 02/28/24 09:54 [place] # (Auto) 0.4 x10^3/uL (0.3-0.8) 02/28/24 09:54 Eos # (Auto) 0.1 x10^3/uL (0.0-0.2) 02/28/24 09:54 Baso # (Auto) 0.0 X10^3/uL (0.0-0.1) 02/28/24 09:54 Absolute Nucleated RBC 0.0 /100WBC 02/28/24 09:54 PT 14.8 SECONDS (11.8-14.3) 02/28/24 09:54 INR Target Range - 02/28/24 09:54 INR 1.19 (0.8-1.3) 02/28/24 09:54 APTT 25.5 SECONDS (22.9-36.5) 02/28/24 09:54 PTT Comment - 02/28/24 09:54 Sample Site Rrad 02/28/24 10:04 ABG pH 7.380 (7.35-7.45) 02/28/24 10:04 ABG pCO2 58.0 mmHg (35.0-45.0) H* 02/28/24 10:04 ABG pO2 83.0 mmHg (80.0-100.0) 02/28/24 10:04 ABG HCO3 34.3 mmol/L (22-26) H* 02/28/24 10:04 ABG O2 Saturation 96.0 % (90-100) 02/28/24 10:04 ABG Base Excess 7.4 mmol/L (-2.0-2.0) H 02/28/24 10:04 Kevin Test Pos 02/28/24 10:04 A-a Gradient 101.0 mmHg 02/28/24 10:04 FiO2 36.0 02/28/24 10:04 Blood Gas Comments Pt rea well elj 02/28/24 10:04 Sodium 138 mmol/L (136-145) 02/28/24 09:54 Corrected Sodium 139 mmol/L (136-145) 02/28/24 09:54 Potassium 4.7 mmol/L (3.5-5.1) 02/28/24 09:54 Chloride 101 mmol/L (98-107) 02/28/24 09:54 Carbon Dioxide 32.9 mmol/L (21-32) H 02/28/24 09:54 BUN 11 mg/dL (7-18) 02/28/24 09:54 Creatinine 0.65 mg/dL (0.55-1.02) 02/28/24 09:54 Est GFR (MDRD) Af Amer > 60 (>60) 02/28/24 09:54 Est GFR (MDRD) Non-Af > 60 (>60) 02/28/24 09:54 Glucose 158 mg/dL (65-99) H 02/28/24 09:54 Calcium 9.2 mg/dL (8.5-10.1) 02/28/24 09:54 Corrected Calcium 10.0 mg/dL (8.5-10.1) 02/28/24 09:54 Magnesium 1.9 mg/dL (2.0-2.9) L 02/28/24 09:54 Total Bilirubin 1.40 mg/dL (0.2-1.0) H 02/28/24 09:54 AST 30 Units/L (15-37) 02/28/24 09:54 ALT 26 Units/L (12-78) 02/28/24 09:54 Alkaline Phosphatase 103 Units/L (46-116) 02/28/24 09:54 Creatine Kinase 40 Units/L (26-192) 02/28/24 14:30 Troponin I High Sens 31.1 ng/L (4.0-60.0) 02/28/24 14:30 B-Natriuretic Peptide 1130 pg/mL (0-79) H 02/28/24 09:54 Total Protein 7.6 g/dL (6.4-8.2) 02/28/24 09:54 Albumin 3.0 g/dL (3.4-5.0) L 02/28/24 09:54 Globulin 4.6 g/dL (2.5-4.5) H 02/28/24 09:54 Albumin/Globulin Ratio 0.7 Ratio (1.1-2.1) L 02/28/24 09:54 Specimen Type Catherized urine 02/28/24 10:25 Urine Color Yellow (YELLOW) 02/28/24 10:25 Urine Appearance Clear (CLEAR) 02/28/24 10:25 Urine pH 6.5 (5.0 - 8.0) 02/28/24 10:25 Ur Specific [place] 1.015 (1.000-1.030) 02/28/24 10:25 Urine Protein 2+ (NEGATIVE) 02/28/24 10:25 Urine Glucose (UA) Negative (NEGATIVE) 02/28/24 10:25 Urine Ketones Negative (NEGATIVE) 02/28/24 10:25 Urine Blood 4+ (NEGATIVE) 02/28/24 10:25 Urine Nitrite Negative (NEGATIVE) 02/28/24 10:25 Urine Bilirubin Negative (NEGATIVE) 02/28/24 10:25 Urine Urobilinogen Normal (NORMAL) 02/28/24 10:25 Ur Leukocyte Esterase Negative (NEGATIVE) 02/28/24 10:25 Urine RBC Tntc /HPF (0-3) A 02/28/24 10:25 Urine WBC 0-2 /HPF (0-5) 02/28/24 10:25 Ur Squamous Epith Cells Few /HPF (NEGATIVE) 02/28/24 10:25 Urine Bacteria Negative /HPF (NEGATIVE) 02/28/24 10:25 Ur Culture Indicated? No/not indicated 02/28/24 10:25 Opioid Opioid Risk Tool Age (Yaya box if 16-45): No History of Preadolescent Sexual Abuse: No Total: 0 Total Score Risk Category: Low Risk Copyright: [facility] predicting aberrant behaviors Discharge Plan Diagnosis Discharge Problem: Acute exacerbation of CHF (congestive heart failure), Atrial fibrillation Discharge Plan Patient Disposition: ADMITTED INPATIENT Condition: Stable Orders to Discharge Patient Discharge Orders: Transfer (Routine); Ordered 02/28/24 Ordered By: Ziggy Hernandez
[2024-02-28] MEDS ORDERED: LASIX IVP ONE (10:07)
[2024-02-28 10:10] LABS: BASOPHILS % (AUTO) 0.5 % (0.2-1.0); EOSINOPHILS # (AUTO) 0.1 x10^3/uL (0.0-0.2); EOSINOPHILS % (AUTO) 0.8 % (0.9-2.9); HEMATOCRIT 40.5 % (36.0-47.0); HEMOGLOBIN 13.2 g/dL (12.0-16.0); LYMPHOCYTES # (AUTO) 0.7 X10^3/uL (1.3-2.9); LYMPHOCYTES % (AUTO) 8.2 % (21.0-51.0); MEAN CORPUSCULAR HEMOGLOBIN 30.7 pg (27.0-34.0); MEAN CORPUSCULAR HGB CONC 32.7 g/dL (33.0-35.0); MEAN CORPUSCULAR VOLUME 93.8 fL (80.0-100.0); MEAN PLATELET VOLUME 10.1 fL (7.4-11.0); MONOCYTES # (AUTO) 0.4 x10^3/uL (0.3-0.8); MONOCYTES % (AUTO) 5.5 % (0.0-13.0); NEUTROPHILS # (AUTO) 6.9 x10^3/uL (2.2-4.8); PLATELET COUNT 165 X10^3/uL (150.0-450.0); RED BLOOD COUNT 4.31 X10^6/uL (3.5-5.4); WHITE BLOOD COUNT 8.1 X10^3/uL (3.6-10.0)
[2024-02-28] MEDS: LASIX IVP ONE (10:10)
[2024-02-28 10:13] LABS: ABG BASE EXCESS 7.4 mmol/L (-2.0-2.0)
[2024-02-28 10:14] LABS: ABG ALLEN TEST POS; ABG HCO3 34.3 mmol/L (22-26)
[2024-02-28 10:18] LABS: INR 1.19 (0.8-1.3)
[2024-02-28 10:32] LABS: ALANINE AMINOTRANSFERASE 26 Units/L (12-78); ALKALINE PHOSPHATASE 103 Units/L (46-116); ASPARTATE AMINO TRANSFERASE 30 Units/L (15-37); BLOOD UREA NITROGEN 11 mg/dL (7-18); CALCIUM 9.2 mg/dL (8.5-10.1); CARBON DIOXIDE 32.9 mmol/L (21-32); CHLORIDE 101 mmol/L (98-107); COR NA(FOR HYPERGLY) 139 mmol/L (136-145); CREATINE KINASE 23 Units/L (26-192); CREATININE 0.65 mg/dL (0.55-1.02); GLUCOSE 158 mg/dL (65-99); MAGNESIUM 1.9 mg/dL (2.0-2.9); POTASSIUM 4.7 mmol/L (3.5-5.1); SODIUM 138 mmol/L (136-145); TOTAL PROTEIN 7.6 g/dL (6.4-8.2); eGFR NON BLACK RACES > 60 (>60)
--- NOTE | 2024-02-28 10:48 | RAD ---
EXAM: CHEST, 1 VIEW HISTORY: COUGH, SOB; COMPARISON: 02/11/2024 FINDINGS: Venous congestion is new. The lungs are not well inflated. There may be a small right effusion. Cardiomegaly is present. The aorta is tortuous; this can be seen with atherosclerosis, hypertension, and aging. The bones are unremarkable. EKG leads are noted. IMPRESSION: 1. Cardiomegaly with new venous congestion THIS IS AN ELECTRONICALLY VERIFIED FINAL REPORT 02/28/2024 10:44 AM - Electronically signed by Mickey Casey MD
[2024-02-28 10:52] LABS: BILIRUBIN,URINE NEGATIVE (NEGATIVE); BLOOD/HEMOGLOBIN,URINE 4+ (NEGATIVE); GLUCOSE, URINE NEGATIVE (NEGATIVE); KETONES,URINE NEGATIVE (NEGATIVE); LEUKOCYTE ESTERASE ,URINE NEGATIVE (NEGATIVE); NITRITES,URINE NEGATIVE (NEGATIVE); PH,URINE 6.5 (5.0 - 8.0); PROTEIN,URINE 2+ (NEGATIVE); UROBILINOGEN,URINE NORMAL (NORMAL)
[2024-02-28 10:56] LABS: APPEARANCE,URINE CLEAR (CLEAR); COLOR,URINE YELLOW (YELLOW)
[2024-02-28 11:06] LABS: BACTERIA,URINE NEGATIVE /HPF (NEGATIVE); RBC,URINE TNTC /HPF (0-3); SQUAMOUS EPITHELIAL CELL,UR FEW /HPF (NEGATIVE)
[2024-02-28] MEDS ORDERED: CARDIZEM INJ 50 MG VIAL IVP ONE (14:12)
--- NOTE | 2024-02-28 14:18 | EKG ---
Test Reason : elevated hr Blood Pressure : */* mmHG Vent. Rate : 109 BPM Atrial Rate : * BPM P-R Int : * ms QRS Dur : 108 ms QT Int : 316 ms P-R-T Axes : * -8 120 degrees QTc Int : 425 ms Atrial fibrillation with rapid ventricular response with premature ventricular or aberrantly conducte d complexes nsivcd T wave abnormality, consider lateral ischemia Abnormal ECG When compared with ECG of 28-FEB-2024 09:51, (Unconfirmed) No significant change was found Confirmed by Popeye Call MD ([id number]) on 02/29/2024 8:30:37 AM Referred By: Confirmed By: Popeye Call MD
[2024-02-28] MEDS: FARXIGA PO ONE (19:50)
[2024-02-28] MEDS ORDERED: XOPENEX 1.25 MG/3 ML NEBULE NEB PRN (21:07)
[2024-02-28] MEDS: ELIQUIS PO SCH (21:52)
[2024-02-28] MEDS: COREG TAB 25 MG PO SCH (21:52)
[2024-02-28] MEDS: ENTRESTO 49/51 MG TABLET PO SCH (21:52)
[2024-02-28] MEDS: NYSTATIN POWDER TOP SCH (21:54)
[2024-02-29] MEDS: TYLENOL 325 MG TAB PO PRN (06:37)
[2024-02-29 07:12] LABS: BASOPHILS % (AUTO) 0.7 % (0.2-1.0); EOSINOPHILS # (AUTO) 0.1 x10^3/uL (0.0-0.2); EOSINOPHILS % (AUTO) 0.9 % (0.9-2.9); HEMOGLOBIN 12.2 g/dL (12.0-16.0); LYMPHOCYTES # (AUTO) 0.6 X10^3/uL (1.3-2.9); LYMPHOCYTES % (AUTO) 9.8 % (21.0-51.0); MEAN CORPUSCULAR HEMOGLOBIN 30.7 pg (27.0-34.0); MEAN CORPUSCULAR HGB CONC 32.9 g/dL (33.0-35.0); MEAN CORPUSCULAR VOLUME 93.3 fL (80.0-100.0); MEAN PLATELET VOLUME 10.1 fL (7.4-11.0); MONOCYTES # (AUTO) 0.5 x10^3/uL (0.3-0.8); MONOCYTES % (AUTO) 8.3 % (0.0-13.0); NEUTROPHILS % (AUTO) 80.3 % (42.0-75.0); PLATELET COUNT 119 X10^3/uL (150.0-450.0); RED BLOOD COUNT 3.97 X10^6/uL (3.5-5.4); RED CELL DISTRIBUTION WIDTH 15.2 % (11.6-16.5); WHITE BLOOD COUNT 6.3 X10^3/uL (3.6-10.0)
[2024-02-29 07:26] LABS: ALANINE AMINOTRANSFERASE 20 Units/L (12-78); ALBUMIN 2.4 g/dL (3.4-5.0); ALKALINE PHOSPHATASE 83 Units/L (46-116); ASPARTATE AMINO TRANSFERASE 26 Units/L (15-37); BLOOD UREA NITROGEN 11 mg/dL (7-18); CALCIUM 8.5 mg/dL (8.5-10.1); CARBON DIOXIDE 34.5 mmol/L (21-32); CHLORIDE 102 mmol/L (98-107); COR CA(FOR HYPOALB) 9.8 mg/dL (8.5-10.1); GLUCOSE 93 mg/dL (65-99); MAGNESIUM 1.7 mg/dL (2.0-2.9); POTASSIUM 4.1 mmol/L (3.5-5.1); SODIUM 139 mmol/L (136-145); TOTAL PROTEIN 6.5 g/dL (6.4-8.2); eGFR NON BLACK RACES > 60 (>60)
[2024-02-29] MEDS ORDERED: CONSULT PHARMACY - POTASSIUM & MAGNESIUM XX SCH (08:00)
[2024-02-29] MEDS: LASIX IVP SCH (09:37)
[2024-02-29] MEDS: CARDIZEM CD 120 MG 24-HR PO SCH (09:38)
[2024-02-29] MEDS: MAG-OX TAB PO SCH (09:38)
[2024-02-29] MEDS: FARXIGA PO SCH (09:38)
[2024-02-29] MEDS: K-DUR TAB 20 MEQ PO SCH (09:40)
[2024-02-29 14:43] VITALS: BMI 53.2
[2024-02-29] MEDS: COREG TAB 25 MG PO SCH (21:29)
[2024-03-01 06:34] LABS: BASOPHILS % (AUTO) 0.8 % (0.2-1.0); EOSINOPHILS # (AUTO) 0.2 x10^3/uL (0.0-0.2); EOSINOPHILS % (AUTO) 3.8 % (0.9-2.9); HEMATOCRIT 35.5 % (36.0-47.0); HEMOGLOBIN 11.6 g/dL (12.0-16.0); LYMPHOCYTES # (AUTO) 0.7 X10^3/uL (1.3-2.9); LYMPHOCYTES % (AUTO) 13.3 % (21.0-51.0); MEAN CORPUSCULAR HEMOGLOBIN 30.5 pg (27.0-34.0); MEAN CORPUSCULAR HGB CONC 32.7 g/dL (33.0-35.0); MEAN CORPUSCULAR VOLUME 93.1 fL (80.0-100.0); MEAN PLATELET VOLUME 9.9 fL (7.4-11.0); MONOCYTES # (AUTO) 0.4 x10^3/uL (0.3-0.8); MONOCYTES % (AUTO) 9.1 % (0.0-13.0); NEUTROPHILS # (AUTO) 3.6 x10^3/uL (2.2-4.8); PLATELET COUNT 117 X10^3/uL (150.0-450.0); RED BLOOD COUNT 3.82 X10^6/uL (3.5-5.4); WHITE BLOOD COUNT 4.9 X10^3/uL (3.6-10.0)
[2024-03-01 06:52] LABS: ALANINE AMINOTRANSFERASE 17 Units/L (12-78); ALBUMIN 2.3 g/dL (3.4-5.0); ALKALINE PHOSPHATASE 89 Units/L (46-116); ASPARTATE AMINO TRANSFERASE 20 Units/L (15-37); BLOOD UREA NITROGEN 17 mg/dL (7-18); CALCIUM 8.3 mg/dL (8.5-10.1); CARBON DIOXIDE 40.5 mmol/L (21-32); CHLORIDE 104 mmol/L (98-107); COR CA(FOR HYPOALB) 9.7 mg/dL (8.5-10.1); COR NA(FOR HYPERGLY) 143 mmol/L (136-145); CREATININE 0.73 mg/dL (0.55-1.02); GLUCOSE 111 mg/dL (65-99); MAGNESIUM 1.9 mg/dL (2.0-2.9); POTASSIUM 3.9 mmol/L (3.5-5.1); SODIUM 143 mmol/L (136-145); TOTAL PROTEIN 6.3 g/dL (6.4-8.2); eGFR NON BLACK RACES > 60 (>60)
[2024-03-01] MEDS ORDERED: CONSULT PHARMACY - POTASSIUM & MAGNESIUM XX SCH (07:00)
[2024-03-01] MEDS: MAG-OX TAB PO SCH (10:12)
[2024-03-01] MEDS: K-DUR TAB 20 MEQ PO SCH (10:13)
[2024-03-02 05:55] LABS: BASOPHILS % (AUTO) 0.3 % (0.2-1.0); EOSINOPHILS # (AUTO) 0.3 x10^3/uL (0.0-0.2); EOSINOPHILS % (AUTO) 5.1 % (0.9-2.9); HEMATOCRIT 37.9 % (36.0-47.0); HEMOGLOBIN 12.3 g/dL (12.0-16.0); LYMPHOCYTES # (AUTO) 0.5 X10^3/uL (1.3-2.9); LYMPHOCYTES % (AUTO) 7.7 % (21.0-51.0); MEAN CORPUSCULAR HEMOGLOBIN 30.5 pg (27.0-34.0); MEAN CORPUSCULAR HGB CONC 32.5 g/dL (33.0-35.0); MEAN CORPUSCULAR VOLUME 93.9 fL (80.0-100.0); MEAN PLATELET VOLUME 10.4 fL (7.4-11.0); MONOCYTES # (AUTO) 0.6 x10^3/uL (0.3-0.8); MONOCYTES % (AUTO) 10.1 % (0.0-13.0); NEUTROPHILS # (AUTO) 4.6 x10^3/uL (2.2-4.8); NEUTROPHILS % (AUTO) 76.8 % (42.0-75.0); PLATELET COUNT 140 X10^3/uL (150.0-450.0); RED BLOOD COUNT 4.04 X10^6/uL (3.5-5.4); RED CELL DISTRIBUTION WIDTH 14.7 % (11.6-16.5); WHITE BLOOD COUNT 5.9 X10^3/uL (3.6-10.0)
[2024-03-02 06:11] LABS: ALANINE AMINOTRANSFERASE 15 Units/L (12-78); ALBUMIN 2.5 g/dL (3.4-5.0); ALKALINE PHOSPHATASE 104 Units/L (46-116); ASPARTATE AMINO TRANSFERASE 20 Units/L (15-37); BLOOD UREA NITROGEN 20 mg/dL (7-18); CALCIUM 8.6 mg/dL (8.5-10.1); CARBON DIOXIDE 38.4 mmol/L (21-32); CHLORIDE 102 mmol/L (98-107); COR CA(FOR HYPOALB) 9.8 mg/dL (8.5-10.1); CREATININE 0.78 mg/dL (0.55-1.02); GLUCOSE 100 mg/dL (65-99); POTASSIUM 4.3 mmol/L (3.5-5.1); SODIUM 142 mmol/L (136-145); TOTAL PROTEIN 6.7 g/dL (6.4-8.2); eGFR NON BLACK RACES > 60 (>60)
[2024-03-02 07:56] VITALS: RESP 18
[2024-03-02 12:04] VITALS: BP 105/54; PULSE 82; TEMP 97.5; O2SAT 98
== END 2024-03-02 14:05 | disposition home health service (06) ==
LOC: ER 09:35 → MED/SURG 09:35
PROVIDERS: ADMIT Obstetrics & Gynecology Obstetrics; ATTEND Obstetrics & Gynecology Obstetrics
DX: I11.0 Hypertensive heart disease with heart failure; R06.02 Shortness of breath; E11.65 Type 2 diabetes mellitus with hyperglycemia; E83.42 Hypomagnesemia; I50.9 Heart failure, unspecified; R60.0 Localized edema; I48.91 Unspecified atrial fibrillation; Z79.01 Long term (current) use of anticoagulants

== ENCOUNTER 2024-11-18 02:28 | Observation (INO) ==
[2024-11-18 02:58] LABS: BASOPHILS # (AUTO) 0.1 X10^3/uL (0.0-0.1); BASOPHILS % (AUTO) 0.7 % (0.2-1.0); EOSINOPHILS # (AUTO) 0.3 x10^3/uL (0.0-0.2); EOSINOPHILS % (AUTO) 3.5 % (0.9-2.9); HEMATOCRIT 47.7 % (36.0-47.0); HEMOGLOBIN 16.2 g/dL (12.0-16.0); LYMPHOCYTES # (AUTO) 1.5 X10^3/uL (1.3-2.9); LYMPHOCYTES % (AUTO) 18.7 % (21.0-51.0); MEAN CORPUSCULAR HEMOGLOBIN 32.3 pg (27.0-34.0); MEAN CORPUSCULAR HGB CONC 34.1 g/dL (33.0-35.0); MEAN CORPUSCULAR VOLUME 94.7 fL (80.0-100.0); MEAN PLATELET VOLUME 9.8 fL (7.4-11.0); MONOCYTES # (AUTO) 0.7 x10^3/uL (0.3-0.8); MONOCYTES % (AUTO) 8.8 % (0.0-13.0); NEUTROPHILS # (AUTO) 5.4 x10^3/uL (2.2-4.8); NEUTROPHILS % (AUTO) 68.3 % (42.0-75.0); PLATELET COUNT 190 X10^3/uL (150.0-450.0); RED BLOOD COUNT 5.03 X10^6/uL (3.5-5.4); RED CELL DISTRIBUTION WIDTH 14.9 % (11.6-16.5)
[2024-11-18] MEDS: MAGNESIUM SULFATE 50% INJ VIAL 2 G in NS 100 ML IV 100 ML IV PRN (02:58)
[2024-11-18] MEDS: XOPENEX 1.25 MG/3 ML NEBULE NEB ONE ×2 (02:58)
[2024-11-18] MEDS: SOLU-Medrol 125 MG VIAL IVP ONE (03:00)
[2024-11-18 03:11] LABS: ALANINE AMINOTRANSFERASE 31 Units/L (12-78); ALBUMIN 3.4 g/dL (3.4-5.0); ALKALINE PHOSPHATASE 105 Units/L (46-116); ASPARTATE AMINO TRANSFERASE 39 Units/L (15-37); BLOOD UREA NITROGEN 10 mg/dL (7-18); CALCIUM 9.2 mg/dL (8.5-10.1); CARBON DIOXIDE 33.2 mmol/L (21-32); CHLORIDE 100 mmol/L (98-107); COR NA(FOR HYPERGLY) 141 mmol/L (136-145); CREATINE KINASE 89 Units/L (26-192); CREATININE 0.88 mg/dL (0.55-1.02); GLUCOSE 122 mg/dL (65-99); POTASSIUM 4.4 mmol/L (3.5-5.1); SODIUM 140 mmol/L (136-145); TOTAL PROTEIN 8.2 g/dL (6.4-8.2); eGFR NON BLACK RACES > 60 (>60)
--- NOTE | 2024-11-18 03:16 | EKG ---
Test Reason : chest Blood Pressure : */* mmHG Vent. Rate : 138 BPM Atrial Rate : * BPM P-R Int : * ms QRS Dur : 98 ms QT Int : 328 ms P-R-T Axes : * 50 197 degrees QTc Int : 496 ms Atrial fibrillation with rapid ventricular response with premature ventricular or aberrantly conducte d complexes Nonspecific ST and T wave abnormality Abnormal ECG When compared with ECG of 28-FEB-2024 14:08, Incomplete left bundle branch block is no longer present Nonspecific T wave abnormality now evident in Inferior leads T wave inversion less evident in Lateral leads Confirmed by Popeye Call MD ([id number]) on 11/19/2024 7:33:57 AM Referred By: Confirmed By: Popeye Call MD
[2024-11-18] MEDS: CARDIZEM INJ 50 MG VIAL IVP ONE (03:20)
--- NOTE | 2024-11-18 03:47 | DR.CP ---
HPI Time Seen Time Seen by Provider: 11/18/24 02:40 PCP Primary Care Physician: Dr. Carlos Pan HPI Comment HPI Comment: According to pt she was well before at elast 1 day ago she experienced gradual onset of shortness of breath with wheezing ,cough and chest pain .EMS called .Pt had not been using her oxygen and o2 was running in the 80~s.non breather mask placed by them and patint brought to ER for evaluation.has had no PND or swellinga round her ankles Complaint Chief Complaint Doctor Comments: chest pain cough and shortness of breath Chief Complaint:: Patient brought in er via ems with complaints of cough, chest pain, and SOB x1 day. Per ems pt O2 sat was 80% upon arrival to pts home. Pt was brought in by ems on 15L nonrebreather O2 sat 100%. Pt was placed on 2L NC upon arrival to er. Dyspnea and tachypnea noted. pt verbalizes difficulty breathing. COVID-19 Coronavirus risk:travel/contact w/high risk person: No Has patient experienced Coronavirus symptoms: Yes Coronavirus symptoms experienced: Coughing and Shortness of Breath Reviewed Nurses Notes Review: Yes Source History Provided: Patient Mode of Arrival Mode of Arrival: EMS Timing Onset of Chief Complaint: 11/17/24 Came on: Gradually Pain: Present Now Duration Duration: Since Onset Duration: Days Location Chest Pain Radiation Location: None Context PE Risk Factors: Immobilization Prehospital Care: Oxygen Associated Signs and Symptoms Associated Signs and Symptoms: Shortness of Breath PMH PMH Past Medical History: Yes Past Medical History: CHF, COPD, Diabetes, Dyslipidemia, GERD and Hypertension Past Medical History Comment: A - Fib, Past Surgical History: Yes Surgical History: Cholecystectomy and Mastectomy Family History History of Family Medical Conditions: Yes Family Medical History: Cancer Social History Does patient currently use any type of tobacco product: Yes Have you used tobacco products in the last 12 months: Yes Type of Tobacco Use: Cigarettes Do you use any recreational Drugs:: No Lives With: Family Lives Where: Home Travel Risk Coronavirus risk:travel/contact w/high risk person: No Has patient experienced Coronavirus symptoms: Yes Coronavirus symptoms experienced: Coughing and Shortness of Breath Infectious screening Have you traveled outside the country in the last 6 months?: No Isolation: Droplet ROS Review of Systems Constitutional: Malaise and Fatigue Eyes: No Symptoms Reported ENTM: No Symptoms Reported Respiratoy: Non-Productive Cough and Short of Breath Cardiovascular: Chest Pain Gastrointestinal/Abdominal: No Symptoms Reported Genitourinary: No Symptoms Reported Neurological: No Symptoms Reported Musculoskeletal: No Symptoms Reported Integumentary: No Symptoms Reported PE Vitals Vitals: Vital Signs Temperature 97.6 F Pulse Rate 113 Pulse Rate 103 Pulse Rate 120 Pulse Rate 125 Pulse Rate 134 Pulse Rate 144 Pulse Rate 126 Pulse Rate 131 Pulse Rate 134 Respiratory Rate 37 Respiratory Rate 27 Respiratory Rate 29 Respiratory Rate 35 Respiratory Rate 48 Respiratory Rate 45 Respiratory Rate 52 Respiratory Rate 38 Respiratory Rate 54 Blood Pressure 140/63 Blood Pressure 162/69 Blood Pressure 165/96 Blood Pressure 211/110 Blood Pressure 230/107 Blood Pressure 207/87 Blood Pressure 207/87 Blood Pressure 207/87 Blood Pressure 230/107 Blood Pressure 230/107 O2 Sat by Pulse Oximetry 94 O2 Sat by Pulse Oximetry 93 O2 Sat by Pulse Oximetry 90 O2 Sat by Pulse Oximetry 93 O2 Sat by Pulse Oximetry 95 O2 Sat by Pulse Oximetry 95 O2 Sat by Pulse Oximetry 93 General Limitations: No Limitations General Appearance: Alert, Anxious and In Distress Head Head Exam: Normal Inspection, Atraumatic and Normocephalic Eyes Eye exam: Normal Appearance, PERRL and EOMI ENT ENT Exam: Normal Oropharynx and Mucous Membranes Moist Chest Chest Inspection: Normal Inspection and Symmetric Chest Wall Rise Respiratory Respiratory Exam: Prolonged Expiratory Phase Respiratory Exam: Bilateral: Wheezing Cardiovascular Cardiovascular Exam: +S1 and +S2 Abdominal Exam Abdominal Exam: Normal Bowel Sounds and Soft Extremities Extremities Exam: Normal Inspection Neurologic Neurological Exam: Alert Psychiatric Psychiatric Exam: Normal Affect Skin Skin Exam: Normal Color MDM Differential Diagnosis Differential Diagnosis: Pneumonia (copd acute exacerbation ,atrial fibrilation with rapid rate control ,hypoxia ) COURSE Treatment Treatment: xopenex,Magnesium 2gm,solumederol ,oxygen Reevaluation 1st: Improved ROR Labs Reviewed 11/18/24 02:45 11/18/24 02:45 Laboratory: WBC 8.0 X10^3/uL (3.6-10.0) 11/18/24 02:45 RBC 5.03 X10^6/uL (3.5-5.4) 11/18/24 02:45 Hgb 16.2 g/dL (12.0-16.0) H 11/18/24 02:45 Hct 47.7 % (36.0-47.0) H 11/18/24 02:45 MCV 94.7 fL (80.0-100.0) 11/18/24 02:45 MCH 32.3 pg (27.0-34.0) 11/18/24 02:45 MCHC 34.1 g/dL (33.0-35.0) 11/18/24 02:45 RDW 14.9 % (11.6-16.5) 11/18/24 02:45 Plt Count 190 X10^3/uL (150.0-450.0) 11/18/24 02:45 MPV 9.8 fL (7.4-11.0) 11/18/24 02:45 Neut % (Auto) 68.3 % (42.0-75.0) 11/18/24 02:45 Lymph % (Auto) 18.7 % (21.0-51.0) L 11/18/24 02:45 [place] % (Auto) 8.8 % (0.0-13.0) 11/18/24 02:45 Eos % (Auto) 3.5 % (0.9-2.9) H 11/18/24 02:45 Baso % (Auto) 0.7 % (0.2-1.0) 11/18/24 02:45 Neut # (Auto) 5.4 x10^3/uL (2.2-4.8) H 11/18/24 02:45 Lymph # (Auto) 1.5 X10^3/uL (1.3-2.9) 11/18/24 02:45 [place] # (Auto) 0.7 x10^3/uL (0.3-0.8) 11/18/24 02:45 Eos # (Auto) 0.3 x10^3/uL (0.0-0.2) H 11/18/24 02:45 Baso # (Auto) 0.1 X10^3/uL (0.0-0.1) 11/18/24 02:45 Absolute Nucleated RBC 0.0 /100WBC 11/18/24 02:45 Sodium 140 mmol/L (136-145) 11/18/24 02:45 Corrected Sodium 141 mmol/L (136-145) 11/18/24 02:45 Potassium 4.4 mmol/L (3.5-5.1) 11/18/24 02:45 Chloride 100 mmol/L (98-107) 11/18/24 02:45 Carbon Dioxide 33.2 mmol/L (21-32) H 11/18/24 02:45 BUN 10 mg/dL (7-18) 11/18/24 02:45 Creatinine 0.88 mg/dL (0.55-1.02) 11/18/24 02:45 Est GFR (MDRD) Af Amer > 60 (>60) 11/18/24 02:45 Est GFR (MDRD) Non-Af > 60 (>60) 11/18/24 02:45 Glucose 122 mg/dL (65-99) H 11/18/24 02:45 Calcium 9.2 mg/dL (8.5-10.1) 11/18/24 02:45 Corrected Calcium TNP 11/18/24 02:45 Total Bilirubin 0.90 mg/dL (0.2-1.0) 11/18/24 02:45 AST 39 Units/L (15-37) H 11/18/24 02:45 ALT 31 Units/L (12-78) 11/18/24 02:45 Alkaline Phosphatase 105 Units/L (46-116) 11/18/24 02:45 Creatine Kinase 89 Units/L (26-192) 11/18/24 02:45 Troponin I High Sens 27.7 ng/L (4.0-60.0) 11/18/24 02:45 B-Natriuretic Peptide 160 pg/mL (0-79) H 11/18/24 02:45 Total Protein 8.2 g/dL (6.4-8.2) 11/18/24 02:45 Albumin 3.4 g/dL (3.4-5.0) 11/18/24 02:45 Globulin 4.8 g/dL (2.5-4.5) H 11/18/24 02:45 Albumin/Globulin Ratio 0.7 Ratio (1.1-2.1) L 11/18/24 02:45 SARS-CoV-2 (PCR) Negative (NEGATIVE) 11/18/24 02:31 Influenza Type A (PCR) Negative (NEGATIVE) 11/18/24 02:31 Influenza Type B (PCR) Negative (NEGATIVE) 11/18/24 02:31 RSV (PCR) Negative (NEGATIVE) 11/18/24 02:31 XRAY X-ray Results: enlarged heart ,no acute ST changes , Opioid Opioid Risk Tool Age (Yaya box if 16-45): No History of Preadolescent Sexual Abuse: No Total: 0 Total Score Risk Category: Low Risk Copyright: [facility] predicting aberrant behaviors Discharge Plan Diagnosis Discharge Problem: Acute exacerbation of chronic obstructive pulmonary disease, Atrial fibrillation with rapid ventricular response, Hypoxia, HTN (hypertension), Tobac co user Discharge Plan Patient Disposition: ADMITTED INPATIENT Condition: Stable Prescriptions: No Action atorvastatin 40 mg tablet 40 mg PO QPM omeprazole 20 mg capsule,delayed release(DR/EC) 20 mg PO QDAY dapagliflozin propanediol [Farxiga] 10 mg tablet 10 mg PO QAM Health Concerns: Post Hospitalization: new medications and changes needed to prevent readmission or further decline. Pt educated and given instructions on all concerns. Plan of Treatment: Continue with present treatment and follow up plan. Pt is to keep follow up appointment as instructed and take medications as ordered. Orders to Discharge Patient Discharge Orders: Transfer (Routine); Ordered 11/18/24 Ordered By: Luisito Nielsen Follow ups/Referrals Follow ups/Referrals: CARLOS PAN [Primary Care Provider] - 3 days Instructions Stand Alone Forms: Find Help Web Site, Post Hospital Follow Up Care ADDITIONAL NOTES Additional Notes Additional Notes: IV magnesium,IV solumederol 125 mg ,xopenex ,cardizem IV .hues glendyr .spoke with Dr. Catalan agreed to have patient admitted
[2024-11-18] MEDS: XOPENEX 1.25 MG/3 ML NEBULE NEB SCH (05:00)
[2024-11-18 05:21] LABS: ABG BASE EXCESS 4.4 mmol/L (-2.0-2.0)
[2024-11-18 05:24] LABS: ABG HCO3 31.1 mmol/L (22-26)
[2024-11-18] MEDS ORDERED: BUTT CREAM (COMPOUND) TOP PRN (05:35)
[2024-11-18 05:52] VITALS: BMI 42.0
[2024-11-18] MEDS: CATAPRES TAB 0.1 MG PO ONE (06:19)
[2024-11-18] MEDS ORDERED: NovoLIN R (or HumuLIN R) SUBCUT PRN (06:30)
[2024-11-18] MEDS: CATAPRES TAB 0.1 MG ONE (07:10)
[2024-11-18] MEDS: CARDIZEM TAB 30 MG PLAIN PO SCH (07:14)
[2024-11-18] MEDS: APRESOLINE INJ 20 MG VIAL IVP ONE (07:22)
[2024-11-18] MEDS ORDERED: CARDIZEM INJ 125 MG VIAL 125 MG in NS 100 ML IV 100 ML IV PRN (07:44)
[2024-11-18] MEDS: ELIQUIS PO SCH (08:44)
[2024-11-18] MEDS: SOLU-Medrol 125 MG VIAL IVP SCH (08:44)
[2024-11-18] MEDS: FARXIGA PO SCH (08:46)
[2024-11-18] MEDS: PULMICORT NEB TX 0.5 MG NEB SCH (09:07)
[2024-11-18] MEDS: TUSSIONEX PENNKINETIC SUSP PO PRN (12:10)
[2024-11-18] MEDS: COZAAR PO SCH (12:11)
--- NOTE | 2024-11-18 12:42 | DR.H&P ---
H&P History & Physical for Day of: H&P Date: 11/18/24 Chief Complaint Chief Complaint: Dyspnea History of Present Illness History of Present Illness: Patient presented to the ER via EMS with 1 day of worsening shortness of breath. Does have a history of COPD and CHF with home O2. She had not been using that and EMS found her sats in the 80s. Responded to nonrebreather and transported to the ER. In the ER, was found to be in a COPD exacerbation. Chest x-ray and physical exam not consistent with CHF exacerbation. She did not have a home med list whether. She responded well to nebs and steroids but did go into rapid ventricular rate with atrial fibrillation present. She does not remember being on a blood thinner. Review of old records shows that she was on Entresto, Coreg, DOAC, and Farxiga earlier this year. Patient currently reports feeling little bit better this morning. She is coughing more. She does feel less short of breath and less tired overall. Denies fever, chills, nausea, vomiting, diarrhea, or rash. Vitals consistent with hypertension and tachycardia. Telemetry shows atrial fibrillation with RVR. She has had diltiazem p.o.'s. PMH: TIA, A-fib, COPD, chronic systolic CHF, hypertension, GERD, HLD. 12 point ROS negative except as noted in HPI. PE: Well-developed, well-nourished, elderly female in NAD. Does appear ill. Hearing intact conversation. Extraocular movements are grossly normal. Head NCAT. Heart irregularly irregular and tachycardic. Lungs with good air movement but wheezing throughout on inspiration and expiration. Bowel sounds are present with a soft, nontender, nondistended abdomen. Mood and affect are appropriate for situation. No swelling of her extremities today. Past Medical History Past Medical History: CHF, COPD, Diabetes, Dyslipidemia, GERD and Hypertension Past Surgical History Surgical History: Cholecystectomy, Hysterectomy and Mastectomy Family History Family Medical History: Cancer Social History Does patient currently use any type of tobacco product: Yes (cigarettes) Have you used tobacco products in the last 12 months: Yes Type of Tobacco Use: Cigarettes Does any household member use tobacco: No Alcohol Use: None Drug Use: None Medications Home Medications: Home Medications Medication Instructions Recorded Confirmed Type atorvastatin 40 mg tablet 40 mg PO QPM 11/18/24 11/18/24 History dapagliflozin propanediol 10 mg 10 mg PO QAM 11/18/24 11/18/24 History tablet (Farxiga) omeprazole 20 mg capsule,delayed 20 mg PO QDAY 11/18/24 11/18/24 History release Allergies Allergies Allergy/AdvReac Type Severity Reaction Status Date / Time macadamia nut oil Allergy Verified 11/18/24 02:42 Labs 11/18/24 02:45 11/18/24 02:45 Labs: Laboratory WBC 8.0 X10^3/uL (3.6-10.0) 11/18/24 02:45 RBC 5.03 X10^6/uL (3.5-5.4) 11/18/24 02:45 Hgb 16.2 g/dL (12.0-16.0) H 11/18/24 02:45 Hct 47.7 % (36.0-47.0) H 11/18/24 02:45 MCV 94.7 fL (80.0-100.0) 11/18/24 02:45 MCH 32.3 pg (27.0-34.0) 11/18/24 02:45 MCHC 34.1 g/dL (33.0-35.0) 11/18/24 02:45 RDW 14.9 % (11.6-16.5) 11/18/24 02:45 Plt Count 190 X10^3/uL (150.0-450.0) 11/18/24 02:45 MPV 9.8 fL (7.4-11.0) 11/18/24 02:45 Neut % (Auto) 68.3 % (42.0-75.0) 11/18/24 02:45 Lymph % (Auto) 18.7 % (21.0-51.0) L 11/18/24 02:45 [place] % (Auto) 8.8 % (0.0-13.0) 11/18/24 02:45 Eos % (Auto) 3.5 % (0.9-2.9) H 11/18/24 02:45 Baso % (Auto) 0.7 % (0.2-1.0) 11/18/24 02:45 Neut # (Auto) 5.4 x10^3/uL (2.2-4.8) H 11/18/24 02:45 Lymph # (Auto) 1.5 X10^3/uL (1.3-2.9) 11/18/24 02:45 [place] # (Auto) 0.7 x10^3/uL (0.3-0.8) 11/18/24 02:45 Eos # (Auto) 0.3 x10^3/uL (0.0-0.2) H 11/18/24 02:45 Baso # (Auto) 0.1 X10^3/uL (0.0-0.1) 11/18/24 02:45 Absolute Nucleated RBC 0.0 /100WBC 11/18/24 02:45 Sample Site R bra 11/18/24 05:16 ABG pH 7.360 (7.35-7.45) 11/18/24 05:16 ABG pCO2 55.0 mmHg (35.0-45.0) H* 11/18/24 05:16 ABG pO2 73.0 mmHg (80.0-100.0) L 11/18/24 05:16 ABG HCO3 31.1 mmol/L (22-26) H* 11/18/24 05:16 ABG O2 Saturation 94.0 % (90-100) 11/18/24 05:16 ABG Base Excess 4.4 mmol/L (-2.0-2.0) H 11/18/24 05:16 Kevin Test N/a 11/18/24 05:16 A-a Gradient 115.0 mmHg 11/18/24 05:16 FiO2 36.0 11/18/24 05:16 Blood Gas Comments 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 11/18/24 05:16 Sodium 140 mmol/L (136-145) 11/18/24 02:45 Corrected Sodium 141 mmol/L (136-145) 11/18/24 02:45 Potassium 4.4 mmol/L (3.5-5.1) 11/18/24 02:45 Chloride 100 mmol/L (98-107) 11/18/24 02:45 Carbon Dioxide 33.2 mmol/L (21-32) H 11/18/24 02:45 BUN 10 mg/dL (7-18) 11/18/24 02:45 Creatinine 0.88 mg/dL (0.55-1.02) 11/18/24 02:45 Est GFR (MDRD) Af Amer > 60 (>60) 11/18/24 02:45 Est GFR (MDRD) Non-Af > 60 (>60) 11/18/24 02:45 Glucose 122 mg/dL (65-99) H 11/18/24 02:45 POC Glucose (mg/dL) 142 mg/dL (65-99) H 11/18/24 06:12 Calcium 9.2 mg/dL (8.5-10.1) 11/18/24 02:45 Corrected Calcium TNP 11/18/24 02:45 Total Bilirubin 0.90 mg/dL (0.2-1.0) 11/18/24 02:45 AST 39 Units/L (15-37) H 11/18/24 02:45 ALT 31 Units/L (12-78) 11/18/24 02:45 Alkaline Phosphatase 105 Units/L (46-116) 11/18/24 02:45 Creatine Kinase 89 Units/L (26-192) 11/18/24 02:45 Troponin I High Sens 27.7 ng/L (4.0-60.0) 11/18/24 02:45 B-Natriuretic Peptide 160 pg/mL (0-79) H 11/18/24 02:45 Total Protein 8.2 g/dL (6.4-8.2) 11/18/24 02:45 Albumin 3.4 g/dL (3.4-5.0) 11/18/24 02:45 Globulin 4.8 g/dL (2.5-4.5) H 11/18/24 02:45 Albumin/Globulin Ratio 0.7 Ratio (1.1-2.1) L 11/18/24 02:45 SARS-CoV-2 (PCR) Negative (NEGATIVE) 11/18/24 02:31 Influenza Type A (PCR) Negative (NEGATIVE) 11/18/24 02:31 Influenza Type B (PCR) Negative (NEGATIVE) 11/18/24 02:31 RSV (PCR) Negative (NEGATIVE) 11/18/24 02:31 Physical Exam Vital Signs: Vital Signs Temperature 97.4 F Temperature 98.0 F Temperature 97.9 F Temperature 98.0 F Temperature 98.0 F Temperature 97.9 F Temperature 97.6 F Pulse Rate [Right Radial] 112 Pulse Rate [Right Radial] 107 Pulse Rate [Right Radial] 113 Pulse Rate [Right Radial] 108 Pulse Rate [Right Radial] 107 Pulse Rate [Right Radial] 121 Pulse Rate [Right Radial] 106 Pulse Rate 98 Pulse Rate 113 Pulse Rate 103 Pulse Rate 120 Pulse Rate 125 Pulse Rate 134 Pulse Rate 144 Pulse Rate 135 Pulse Rate 126 Pulse Rate 131 Pulse Rate 134 Respiratory Rate 37 Respiratory Rate 21 Respiratory Rate 26 Respiratory Rate 22 Respiratory Rate 21 Respiratory Rate 24 Respiratory Rate 24 Respiratory Rate 18 Respiratory Rate 37 Respiratory Rate 27 Respiratory Rate 29 Respiratory Rate 35 Respiratory Rate 48 Respiratory Rate 45 Respiratory Rate 52 Respiratory Rate 38 Respiratory Rate 54 Blood Pressure [Right Arm] 188/84 Blood Pressure [Right Arm] 185/90 Blood Pressure [Right Arm] 180/85 Blood Pressure [Right Arm] 177/84 Blood Pressure [Right Arm] 175/85 Blood Pressure [Right Arm] 172/85 Blood Pressure [Right Arm] 177/84 Blood Pressure 140/63 Blood Pressure 162/69 Blood Pressure 165/96 Blood Pressure 211/110 Blood Pressure 230/107 Blood Pressure 207/87 Blood Pressure 207/87 Blood Pressure 207/87 Blood Pressure 230/107 Blood Pressure 230/107 O2 Sat by Pulse Oximetry 96 O2 Sat by Pulse Oximetry 97 O2 Sat by Pulse Oximetry 98 O2 Sat by Pulse Oximetry 95 O2 Sat by Pulse Oximetry 98 O2 Sat by Pulse Oximetry 98 O2 Sat by Pulse Oximetry 98 O2 Sat by Pulse Oximetry 98 O2 Sat by Pulse Oximetry 94 O2 Sat by Pulse Oximetry 93 O2 Sat by Pulse Oximetry 90 O2 Sat by Pulse Oximetry 93 O2 Sat by Pulse Oximetry 95 O2 Sat by Pulse Oximetry 95 O2 Sat by Pulse Oximetry 94 O2 Sat by Pulse Oximetry 93 Assessment/Plan (1) Atrial fibrillation with RVR: Narrative Support Text: Dilt p.o. Will start a drip if needed. Will avoid beta agonist. Start Eliquis. Need home medication list Status: Acute (2) Acute exacerbation of chronic obstructive pulmonary disease: Narrative Support Text: Pulmicort twice daily, ipratropium 4 times daily, steroids, ABX. Status: Acute (3) Cardiomyopathy: Qualifiers: Cardiomyopathy type: unspecified Qualified Code(s): I42.9 - Cardiomyopathy, unspecified Narrative Support Text: Hold beta-liza for now. Starting ARB. May resume Entresto per cardiology rec from earlier this year. Continue Farxiga. Status: Acute (4) Chronic systolic CHF (congestive heart failure): Narrative Support Text: See above. Status: Acute (5) Essential (primary) hypertension: Narrative Support Text: Starting losartan. Continue hypertension protocol. Status: Acute (6) Acute hypoxemic respiratory failure: Narrative Support Text: O2 supplementation Status: Acute (7) Chronic hypercapnic respiratory failure: Narrative Support Text: May need to sleep study. Likely secondary to COPD. Status: Acute
[2024-11-18] MEDS: VIBRAMYCIN PO SCH (14:04)
[2024-11-18] MEDS: TYLENOL 325 MG TAB PO PRN (14:50)
[2024-11-18] MEDS: CARDIZEM INJ 125 MG VIAL ONE (15:37)
[2024-11-18] MEDS: CARDIZEM INJ 50 MG VIAL ONE (15:37)
[2024-11-18] MEDS: NS 100 ML IV 100 ML ONE (15:38)
--- NOTE | 2024-11-18 16:20 | RAD ---
EXAM:CHEST, 1 VIEWHISTORY:chest pain, sob;COMPARISON:February 28, 2024TECHNIQUE:Chest radiographic imaging, AP portable projection, 1 imageFINDINGS:Moderate cardiomegaly.Tortuous thoracic aorta.Mild diffuse increased interstitial markings.No focal airspace disease.No pleural effusion.No pneumothorax.No acute osseous abnormality.IMPRESSION:Findings could represent mild acute cardiogenic edema and/or chronic changes.THIS IS AN ELECTRONICALLY VERIFIED FINAL TTTBAD0811/18/2024 4:17 PM - Electronically signed by Joshua Arnold MD
[2024-11-18] MEDS ORDERED: SNACK - Diabetic Appropriate PO SCH (20:00)
[2024-11-18] MEDS: LIPITOR TAB 40 MG PO SCH (20:56)
[2024-11-19 05:17] LABS: LYMPHOCYTES # (AUTO) 0.4 X10^3/uL (1.3-2.9); LYMPHOCYTES % (AUTO) 4.3 % (21.0-51.0); NEUTROPHILS # (AUTO) 8.7 x10^3/uL (2.2-4.8); WHITE BLOOD COUNT 9.3 X10^3/uL (3.6-10.0)
[2024-11-19 05:23] LABS: BASOPHILS % (AUTO) 0 % (0.2-1.0); HEMATOCRIT 42.2 % (36.0-47.0); HEMOGLOBIN 14.5 g/dL (12.0-16.0); MEAN CORPUSCULAR HEMOGLOBIN 32.7 pg (27.0-34.0); MEAN CORPUSCULAR HGB CONC 34.2 g/dL (33.0-35.0); MEAN CORPUSCULAR VOLUME 95.5 fL (80.0-100.0); MEAN PLATELET VOLUME 9.4 fL (7.4-11.0); MONOCYTES # (AUTO) 0.2 x10^3/uL (0.3-0.8); MONOCYTES % (AUTO) 1.7 % (0.0-13.0); PLATELET COUNT 182 X10^3/uL (150.0-450.0); RED BLOOD COUNT 4.42 X10^6/uL (3.5-5.4)
[2024-11-19 05:26] LABS: ALANINE AMINOTRANSFERASE 34 Units/L (12-78); ALBUMIN 2.9 g/dL (3.4-5.0); ALKALINE PHOSPHATASE 98 Units/L (46-116); ASPARTATE AMINO TRANSFERASE 26 Units/L (15-37); BLOOD UREA NITROGEN 13 mg/dL (7-18); CALCIUM 8.9 mg/dL (8.5-10.1); CARBON DIOXIDE 29.3 mmol/L (21-32); CHLORIDE 102 mmol/L (98-107); COR CA(FOR HYPOALB) 9.8 mg/dL (8.5-10.1); COR NA(FOR HYPERGLY) 142 mmol/L (136-145); CREATININE 0.93 mg/dL (0.55-1.02); GLUCOSE 250 mg/dL (65-99); POTASSIUM 4.4 mmol/L (3.5-5.1); SODIUM 138 mmol/L (136-145); TOTAL PROTEIN 7.3 g/dL (6.4-8.2); eGFR NON BLACK RACES > 60 (>60)
[2024-11-19 05:37] LABS: BAND NEUTROPHILS % 3 % (0-10); PLATELET MORPHOLOGY COMMENT NORMAL (NORMAL)
[2024-11-19] MEDS: SOLU-Medrol 125 MG VIAL IVP SCH (09:33)
[2024-11-19] MEDS: RHINOCORT ALLERGY NASAL SPRAY ENOSTRIL SCH (09:44)
[2024-11-19] MEDS: ENTRESTO 24/26 MG TABLET PO SCH (09:45)
[2024-11-19] MEDS: AVELOX TAB 400 MG PO SCH (09:45)
[2024-11-19] MEDS: COREG TAB 25 MG PO SCH (09:45)
[2024-11-19] MEDS: ELIQUIS PO SCH (20:24)
[2024-11-19] MEDS: ROBITUSSIN DM PO PRN (22:04)
[2024-11-19] MEDS: Atrovent NEB TX 0.02% NEB PRN (22:04)
[2024-11-20 06:19] LABS: BASOPHILS % (AUTO) 0.2 % (0.2-1.0); HEMATOCRIT 46.9 % (36.0-47.0); HEMOGLOBIN 15.5 g/dL (12.0-16.0); LYMPHOCYTES # (AUTO) 0.4 X10^3/uL (1.3-2.9); LYMPHOCYTES % (AUTO) 2.3 % (21.0-51.0); MEAN CORPUSCULAR HEMOGLOBIN 31.9 pg (27.0-34.0); MEAN CORPUSCULAR HGB CONC 33.1 g/dL (33.0-35.0); MEAN CORPUSCULAR VOLUME 96.5 fL (80.0-100.0); MEAN PLATELET VOLUME 10.3 fL (7.4-11.0); MONOCYTES # (AUTO) 0.3 x10^3/uL (0.3-0.8); NEUTROPHILS # (AUTO) 15.8 x10^3/uL (2.2-4.8); NEUTROPHILS % (AUTO) 95.5 % (42.0-75.0); PLATELET COUNT 213 X10^3/uL (150.0-450.0); RED BLOOD COUNT 4.86 X10^6/uL (3.5-5.4); RED CELL DISTRIBUTION WIDTH 14.9 % (11.6-16.5); WHITE BLOOD COUNT 16.5 X10^3/uL (3.6-10.0)
[2024-11-20 06:47] LABS: ALANINE AMINOTRANSFERASE 40 Units/L (12-78); ALKALINE PHOSPHATASE 98 Units/L (46-116); ASPARTATE AMINO TRANSFERASE 35 Units/L (15-37); BLOOD UREA NITROGEN 24 mg/dL (7-18); CALCIUM 9.1 mg/dL (8.5-10.1); CARBON DIOXIDE 28.5 mmol/L (21-32); CHLORIDE 105 mmol/L (98-107); COR CA(FOR HYPOALB) 9.9 mg/dL (8.5-10.1); COR NA(FOR HYPERGLY) 143 mmol/L (136-145); CREATININE 0.83 mg/dL (0.55-1.02); GLUCOSE 130 mg/dL (65-99); POTASSIUM 4.7 mmol/L (3.5-5.1); SODIUM 142 mmol/L (136-145); TOTAL PROTEIN 7.5 g/dL (6.4-8.2); eGFR NON BLACK RACES > 60 (>60)
[2024-11-20 06:49] LABS: BAND NEUTROPHILS % 3 % (0-10); PLATELET MORPHOLOGY COMMENT NORMAL (NORMAL)
[2024-11-20] MEDS ORDERED: SOLU-Medrol 125 MG VIAL IVP SCH (09:44)
[2024-11-20] MEDS ORDERED: ENTRESTO 49/51 MG TABLET PO SCH (09:45)
[2024-11-20] MEDS: ENTRESTO 24/26 MG TABLET PO NR (10:17)
[2024-11-20] MEDS: SOLU-Medrol 40 MG VIAL IVP SCH (14:12)
[2024-11-20] MEDS: ENTRESTO 49/51 MG TABLET PO SCH (21:42)
[2024-11-21 06:56] LABS: BASOPHILS % (AUTO) 0.2 % (0.2-1.0); HEMATOCRIT 48.8 % (36.0-47.0); HEMOGLOBIN 16.5 g/dL (12.0-16.0); LYMPHOCYTES # (AUTO) 0.5 X10^3/uL (1.3-2.9); MEAN CORPUSCULAR HEMOGLOBIN 32.2 pg (27.0-34.0); MEAN CORPUSCULAR HGB CONC 33.7 g/dL (33.0-35.0); MEAN CORPUSCULAR VOLUME 95.6 fL (80.0-100.0); MEAN PLATELET VOLUME 9.8 fL (7.4-11.0); MONOCYTES # (AUTO) 0.5 x10^3/uL (0.3-0.8); MONOCYTES % (AUTO) 3.6 % (0.0-13.0); NEUTROPHILS # (AUTO) 11.9 x10^3/uL (2.2-4.8); NEUTROPHILS % (AUTO) 92.2 % (42.0-75.0); PLATELET COUNT 213 X10^3/uL (150.0-450.0); RED BLOOD COUNT 5.11 X10^6/uL (3.5-5.4); WHITE BLOOD COUNT 12.9 X10^3/uL (3.6-10.0)
[2024-11-21 07:21] LABS: ALANINE AMINOTRANSFERASE 39 Units/L (12-78); ALKALINE PHOSPHATASE 102 Units/L (46-116); ASPARTATE AMINO TRANSFERASE 29 Units/L (15-37); BLOOD UREA NITROGEN 27 mg/dL (7-18); CALCIUM 8.9 mg/dL (8.5-10.1); CARBON DIOXIDE 32.6 mmol/L (21-32); CHLORIDE 106 mmol/L (98-107); COR CA(FOR HYPOALB) 9.7 mg/dL (8.5-10.1); COR NA(FOR HYPERGLY) 144 mmol/L (136-145); GLUCOSE 131 mg/dL (65-99); POTASSIUM 4.1 mmol/L (3.5-5.1); SODIUM 143 mmol/L (136-145); TOTAL PROTEIN 7.4 g/dL (6.4-8.2); eGFR NON BLACK RACES > 60 (>60)
[2024-11-21 08:05] LABS: PLATELET MORPHOLOGY COMMENT NORMAL (NORMAL)
[2024-11-21] MEDS: LR 1,000 ML IV 1,000 ML IV SCH (10:15)
[2024-11-21] MEDS: PREDNISONE TAB 10 MG PO SCH (10:16)
[2024-11-21] MEDS: TESSALON PERLES PO PRN (20:51)
[2024-11-22 05:32] LABS: BASOPHILS % (AUTO) 0.2 % (0.2-1.0); LYMPHOCYTES # (AUTO) 0.8 X10^3/uL (1.3-2.9); LYMPHOCYTES % (AUTO) 7.1 % (21.0-51.0); MEAN CORPUSCULAR HEMOGLOBIN 32.4 pg (27.0-34.0); MEAN CORPUSCULAR VOLUME 95.3 fL (80.0-100.0); MEAN PLATELET VOLUME 9.2 fL (7.4-11.0); MONOCYTES # (AUTO) 0.9 x10^3/uL (0.3-0.8); MONOCYTES % (AUTO) 7.8 % (0.0-13.0); NEUTROPHILS % (AUTO) 84.9 % (42.0-75.0); PLATELET COUNT 202 X10^3/uL (150.0-450.0); RED BLOOD COUNT 4.93 X10^6/uL (3.5-5.4); RED CELL DISTRIBUTION WIDTH 14.8 % (11.6-16.5); WHITE BLOOD COUNT 11.7 X10^3/uL (3.6-10.0)
[2024-11-22 05:44] LABS: ALANINE AMINOTRANSFERASE 51 Units/L (12-78); ALBUMIN 2.7 g/dL (3.4-5.0); ALKALINE PHOSPHATASE 82 Units/L (46-116); ASPARTATE AMINO TRANSFERASE 31 Units/L (15-37); BLOOD UREA NITROGEN 27 mg/dL (7-18); CALCIUM 8.5 mg/dL (8.5-10.1); CARBON DIOXIDE 35.9 mmol/L (21-32); CHLORIDE 104 mmol/L (98-107); COR CA(FOR HYPOALB) 9.5 mg/dL (8.5-10.1); COR NA(FOR HYPERGLY) 142 mmol/L (136-145); CREATININE 0.84 mg/dL (0.55-1.02); GLUCOSE 116 mg/dL (65-99); POTASSIUM 4.2 mmol/L (3.5-5.1); SODIUM 142 mmol/L (136-145); TOTAL PROTEIN 6.5 g/dL (6.4-8.2); eGFR NON BLACK RACES > 60 (>60)
--- NOTE | 2024-11-22 08:35 | EKG ---
Test Reason : chest pain Blood Pressure : */* mmHG Vent. Rate : 95 BPM Atrial Rate : * BPM P-R Int : * ms QRS Dur : 104 ms QT Int : 336 ms P-R-T Axes : * 30 76 degrees QTc Int : 422 ms Atrial fibrillation Abnormal ECG When compared with ECG of 18-NOV-2024 03:12, Nonspecific T wave abnormality no longer evident in Inferior leads Confirmed by Popeye Call MD ([id number]) on 11/23/2024 7:32:52 AM Referred By: Confirmed By: Popeye Call MD
[2024-11-22 08:53] VITALS: PULSE 76
[2024-11-22 12:09] VITALS: BP 102/51; RESP 22; TEMP 97.7; O2SAT 95
== END 2024-11-22 15:40 | disposition home or self-care (01) ==
LOC: ER 02:28 → MED/SURG 02:28
PROVIDERS: ADMIT Family Medicine; ATTEND Obstetrics & Gynecology Obstetrics

== ENCOUNTER 2025-01-08 15:53 | Observation (INO) ==
[2025-01-08 16:11] VITALS: BMI 44.0
[2025-01-08 17:37] LABS: EOSINOPHILS # (AUTO) 0.1 x10^3/uL (0.0-0.2); MEAN PLATELET VOLUME 9.8 fL (7.4-11.0); NEUTROPHILS % (AUTO) 83.3 % (42.0-75.0); RED CELL DISTRIBUTION WIDTH 14.6 % (11.6-16.5)
[2025-01-08 17:41] LABS: BASOPHILS # (AUTO) 0.1 X10^3/uL (0.0-0.1); BASOPHILS % (AUTO) 0.7 % (0.2-1.0); EOSINOPHILS % (AUTO) 0.6 % (0.9-2.9); HEMATOCRIT 47.9 % (36.0-47.0); HEMOGLOBIN 16.3 g/dL (12.0-16.0); MEAN CORPUSCULAR HEMOGLOBIN 32.2 pg (27.0-34.0); MEAN CORPUSCULAR VOLUME 94.7 fL (80.0-100.0); MONOCYTES # (AUTO) 0.4 x10^3/uL (0.3-0.8); MONOCYTES % (AUTO) 4.4 % (0.0-13.0); NEUTROPHILS # (AUTO) 7.9 x10^3/uL (2.2-4.8); PLATELET COUNT 178 X10^3/uL (150.0-450.0); RED BLOOD COUNT 5.06 X10^6/uL (3.5-5.4); WHITE BLOOD COUNT 9.5 X10^3/uL (3.6-10.0)
[2025-01-08 17:51] LABS: ALANINE AMINOTRANSFERASE 20 Units/L (12-78); ALBUMIN 3.1 g/dL (3.4-5.0); ALKALINE PHOSPHATASE 88 Units/L (46-116); ASPARTATE AMINO TRANSFERASE 26 Units/L (15-37); BLOOD UREA NITROGEN 16 mg/dL (7-18); CALCIUM 9.3 mg/dL (8.5-10.1); CHLORIDE 104 mmol/L (98-107); COR NA(FOR HYPERGLY) 138 mmol/L (136-145); GLUCOSE 114 mg/dL (65-99); POTASSIUM 4.5 mmol/L (3.5-5.1); SODIUM 138 mmol/L (136-145); TOTAL PROTEIN 7.2 g/dL (6.4-8.2); eGFR NON BLACK RACES > 60 (>60)
[2025-01-08 17:55] LABS: INR 1.13 (0.8-1.3)
[2025-01-08 18:10] LABS: PLATELET MORPHOLOGY COMMENT NORMAL (NORMAL)
--- NOTE | 2025-01-08 18:36 | EKG ---
Test Reason : near syncope Blood Pressure : */* mmHG Vent. Rate : 75 BPM Atrial Rate : * BPM P-R Int : * ms QRS Dur : 108 ms QT Int : 450 ms P-R-T Axes : * 37 76 degrees QTc Int : 502 ms Atrial fibrillation with premature ventricular or aberrantly conducted complexes Prolonged QT Abnormal ECG When compared with ECG of 22-NOV-2024 08:18, QT has lengthened Confirmed by Popeye Call MD ([id number]) on 01/09/2025 7:46:54 AM Referred By: Confirmed By: Popeye Call MD
--- NOTE | 2025-01-08 19:28 | DR.GENAD ---
HPI Time Seen Time Seen by Provider: 01/08/25 17:04 PCP Primary Care Physician: Dr. 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 Pt states she felt fine prior, began to feel extremely lightheaded. c/o severe weakness and lightheadedness since. c/o assoc headache. Denies other complaints. Chief Complaint:: Pt states that about an hour ago she was going to get in the shower and had a sudden onset of weakness and felt like she was going to pass out. Pt did not pass out. EMS reports that upon their arrival pt was cool, clammy, and pale with BP 84/62. Pt does c/o aching pain in her neck that is worse with movement. COVID-19 Coronavirus risk:travel/contact w/high risk person: No Has patient experienced Coronavirus symptoms: No Source History Provided: Patient and EMS Mode of Arrival Mode of Arrival: EMS Timing Onset of Chief Complaint: 01/08/25 PMH PMH Past Medical History: Yes Past Medical History: CHF, COPD, Diabetes, Dyslipidemia, GERD and Hypertension Past Medical History Comment: afib, breast cancer Past Surgical History: Yes Surgical History: Cholecystectomy and Hysterectomy Past Surgical History Comment: left mastectomy Family History History of Family Medical Conditions: Yes Family Medical History: Cancer, NC, Coronary Artery Disease and Hypertension Social History Does patient currently use any type of tobacco product: Yes Have you used tobacco products in the last 12 months: Yes Type of Tobacco Use: Cigarettes Does any household member use tobacco: No Alcohol Use: None Do you use any recreational Drugs:: No Lives With: Family Lives Where: Home Travel Risk Coronavirus risk:travel/contact w/high risk person: No Has patient experienced Coronavirus symptoms: No Infectious screening In the last 2 months have you had wt loss of >10#?: NO Have you had fever, night sweats or hemotysis?: No Have you traveled outside the country in the last 6 months?: No Isolation: Standard ROS Review of Systems Constitutional: Weakness Cardiovascular: Syncope (near) All Other Systems: Reviewed and Negative PE Vital Signs Vitals: Vital Signs Temperature 95.9 F Pulse Rate 84 Pulse Rate 86 Pulse Rate 84 Pulse Rate 80 Pulse Rate 85 Pulse Rate 86 Pulse Rate 84 Pulse Rate 85 Pulse Rate 84 Pulse Rate 84 Pulse Rate 79 Respiratory Rate 35 Respiratory Rate 32 Respiratory Rate 22 Respiratory Rate 22 Respiratory Rate 23 Respiratory Rate 42 Respiratory Rate 30 Respiratory Rate 23 Respiratory Rate 29 Respiratory Rate 29 Respiratory Rate 20 Blood Pressure 151/91 Blood Pressure 149/73 Blood Pressure 149/73 Blood Pressure 149/73 Blood Pressure 143/94 Blood Pressure 148/65 Blood Pressure 106/66 O2 Sat by Pulse Oximetry 97 O2 Sat by Pulse Oximetry 94 O2 Sat by Pulse Oximetry 95 O2 Sat by Pulse Oximetry 95 O2 Sat by Pulse Oximetry 83 O2 Sat by Pulse Oximetry 99 O2 Sat by Pulse Oximetry 99 O2 Sat by Pulse Oximetry 96 O2 Sat by Pulse Oximetry 99 General Limitations: No Limitations General Appearance: Alert and In No Apparent Distress Head Head Exam: Normal Inspection Eyes Eye exam: Normal Appearance ENT ENT Exam: Normal Exam External Ear Exam: Normal External Inspection TM/Canal Exam: Bilateral: Normal Nose Exam: Normal Nose Exam Mouth Exam: Normal Inspection Throat Exam: Normal Inspection Neck Neck Exam: Normal Inspection Chest Chest Inspection: Normal Inspection Respiratory Respiratory Exam: Normal Lung Sounds Bilat Respiratory Exam: Bilateral: Clear to Auscultation Cardiovascular Cardiovascular Exam: Regular Rate and Irregular Rhythm Abdominal Exam Abdominal Exam: Normal Inspection, Normal Bowel Sounds and Soft Extremities Extremities Exam: Normal Inspection Back Back Exam: Normal Inspection Neurologic Neurological Exam: Alert and Oriented X3 Psychiatric Psychiatric Exam: Normal Affect and Normal Mood Skin Skin Exam: Warm, Dry, Intact and Normal Color ROR Labs Reviewed Laboratory Results Reviewed?: Yes 01/08/25 17:24 01/08/25 17:24 Laboratory: WBC 9.5 X10^3/uL (3.6-10.0) 01/08/25 17:24 RBC 5.06 X10^6/uL (3.5-5.4) 01/08/25 17:24 Hgb 16.3 g/dL (12.0-16.0) H 01/08/25 17:24 Hct 47.9 % (36.0-47.0) H 01/08/25 17:24 MCV 94.7 fL (80.0-100.0) 01/08/25 17:24 MCH 32.2 pg (27.0-34.0) 01/08/25 17:24 MCHC 34.0 g/dL (33.0-35.0) 01/08/25 17:24 RDW 14.6 % (11.6-16.5) 01/08/25 17:24 Plt Count 178 X10^3/uL (150.0-450.0) 01/08/25 17:24 Plt Count Comment Adequate (ADEQUATE) 01/08/25 17:24 MPV 9.8 fL (7.4-11.0) 01/08/25 17:24 Neut % (Auto) 83.3 % (42.0-75.0) H 01/08/25 17:24 Lymph % (Auto) 11.0 % (21.0-51.0) L 01/08/25 17:24 [place] % (Auto) 4.4 % (0.0-13.0) 01/08/25 17:24 Eos % (Auto) 0.6 % (0.9-2.9) L 01/08/25 17:24 Baso % (Auto) 0.7 % (0.2-1.0) 01/08/25 17:24 Neut # (Auto) 7.9 x10^3/uL (2.2-4.8) H 01/08/25 17:24 Lymph # (Auto) 1.0 X10^3/uL (1.3-2.9) L 01/08/25 17:24 [place] # (Auto) 0.4 x10^3/uL (0.3-0.8) 01/08/25 17:24 Eos # (Auto) 0.1 x10^3/uL (0.0-0.2) 01/08/25 17:24 Baso # (Auto) 0.1 X10^3/uL (0.0-0.1) 01/08/25 17:24 Absolute Nucleated RBC 1.3 /100WBC 01/08/25 17:24 Plt Clumps, EDTA Rare 01/08/25 17:24 Plt Morphology Comment Normal (NORMAL) 01/08/25 17: RBC Morphology Normal (NORMAL) 01/08/25 17:24 PT 14.2 SECONDS (11.8-14.3) 01/08/25 17:24 INR Target Range - 01/08/25 17: INR 1.13 (0.8-1.3) 01/08/25 17:24 APTT 20.1 SECONDS (22.9-36.5) L 01/08/25 17:24 PTT Comment - 01/08/25 17:24 Sodium 138 mmol/L (136-145) 01/08/25 17:24 Corrected Sodium 138 mmol/L (136-145) 01/08/25 17:24 Potassium 4.5 mmol/L (3.5-5.1) 01/08/25 17:24 Chloride 104 mmol/L (98-107) 01/08/25 17:24 Carbon Dioxide 29.0 mmol/L (21-32) 01/08/25 17:24 BUN 16 mg/dL (7-18) 01/08/25 17:24 Creatinine 0.90 mg/dL (0.55-1.02) 01/08/25 17:24 Est GFR (MDRD) Af Amer > 60 (>60) 01/08/25 17:24 Est GFR (MDRD) Non-Af > 60 (>60) 01/08/25 17:24 Glucose 114 mg/dL (65-99) H 01/08/25 17:24 Calcium 9.3 mg/dL (8.5-10.1) 01/08/25 17:24 Corrected Calcium 10.0 mg/dL (8.5-10.1) 01/08/25 17:24 Total Bilirubin 0.60 mg/dL (0.2-1.0) 01/08/25 17:24 AST 26 Units/L (15-37) 01/08/25 17:24 ALT 20 Units/L (12-78) 01/08/25 17:24 Alkaline Phosphatase 88 Units/L (46-116) 01/08/25 17:24 Troponin I High Sens 20.4 ng/L (4.0-60.0) 01/08/25 17:24 Total Protein 7.2 g/dL (6.4-8.2) 01/08/25 17:24 Albumin 3.1 g/dL (3.4-5.0) L 01/08/25 17:24 Globulin 4.1 g/dL (2.5-4.5) 01/08/25 17:24 Albumin/Globulin Ratio 0.8 Ratio (1.1-2.1) L 01/08/25 17:24 Opioid Opioid Risk Tool Age (Yaya box if 16-45): No History of Preadolescent Sexual Abuse: No Total: 0 Total Score Risk Category: Low Risk Copyright: Federico BOUDREAUX predicting aberrant behaviors Discharge Plan Diagnosis Discharge Problem: Near syncope, Atrial fibrillation Hospital Course Hospital Course: Admit to Dr Flores at 1920 Discharge Plan Patient Disposition: 09 ADMITTED INPATIENT Condition: Stable Prescriptions: No Action atorvastatin 40 mg tablet 40 mg PO QPM carvedilol 25 mg Tablet 25 mg PO BID Qty: 60 6RF moxifloxacin 400 mg Tablet 400 mg PO Q24H Qty: 5 0RF Eliquis 5 mg Tablet 5 mg PO BID Qty: 60 6RF sacubitril-valsartan [Entresto] 97-103 mg tablet 1 tab PO BID Qty: 60 4RF mometasone 50 mcg/actuation spray,non-aerosol 2 spray intranasal QDAY Qty: 17 3RF Rx Instructions: administer into each nostril Breztri Aerosphere 160-9-4.8 mcg/actuation HFA aerosol inhaler 2 inh inhalation BID Qty: 10.7 4RF Health Concerns: Post Hospitalization: new medications and changes needed to prevent readmission or further decline. Pt educated and given instructions on all concerns. Plan of Treatment: Continue with present treatment and follow up plan. Pt is to keep follow up appointment as instructed and take medications as ordered. Orders to Discharge Patient Discharge Orders: Transfer (Routine); Ordered 01/08/25 Ordered By: Jayson Pro Follow ups/Referrals Follow ups/Referrals: REG PAN [Primary Care Provider] - 3 days Instructions Stand Alone Forms: Find Help Web Site, Post Hospital Follow Up Care
--- NOTE | 2025-01-08 21:01 | EKG ---
Test Reason : Near Syncope Blood Pressure : */* mmHG Vent. Rate : 87 BPM Atrial Rate : * BPM P-R Int : * ms QRS Dur : 100 ms QT Int : 430 ms P-R-T Axes : * 24 67 degrees QTc Int : 517 ms Atrial fibrillation with premature ventricular or aberrantly conducted complexes Prolonged QT Abnormal ECG When compared with ECG of 08-JAN-2025 18:29, (Unconfirmed) No significant change was found Confirmed by Popeye Call MD ([id number]) on 01/09/2025 7:46:01 AM Referred By: Confirmed By: Popeye Call MD
[2025-01-08] MEDS: COREG TAB 25 MG PO SCH (23:30)
[2025-01-08] MEDS: TYLENOL 325 MG TAB PO PRN (23:30)
[2025-01-08] MEDS: ELIQUIS PO SCH (23:30)
[2025-01-08] MEDS: LIPITOR TAB 40 MG PO SCH (23:31)
[2025-01-08] MEDS: NS 1,000 ML IV 1,000 ML IV SCH (23:32)
--- NOTE | 2025-01-09 01:22 | EKG ---
Test Reason : Near Syncope Blood Pressure : */* mmHG Vent. Rate : 69 BPM Atrial Rate : * BPM P-R Int : * ms QRS Dur : 114 ms QT Int : 466 ms P-R-T Axes : * 33 79 degrees QTc Int : 499 ms Atrial fibrillation with premature ventricular or aberrantly conducted complexes Incomplete left bundle branch block Prolonged QT Abnormal ECG When compared with ECG of 08-JAN-2025 20:44, (Unconfirmed) Incomplete left bundle branch block is now present Confirmed by Popeye Call MD ([id number]) on 01/09/2025 7:45:18 AM Referred By: Confirmed By: Popeye Call MD
--- NOTE | 2025-01-09 02:08 | RAD ---
PROCEDURE: Chest X-ray 1 View. HISTORY: sudden onset of weakness and felt like she was going to pass out. Pt did not pass out. EMS r eports that upon their arrival pt was cool, clammy, and pale with BP 84/62.; . TECHNIQUE: AP view. COMPARISON: 11/26/2024. TECHNICAL QUALITY: Satisfactory. FINDINGS: Unchanged moderate cardiomegaly. Mediastinum and hilar regions show no masses or lymphadenopathy. Tortuous aorta. Normal central vascularity. No pulmonary consolidation, masses, pleural fluid, or pneumothorax. No acute bony abnormality. IMPRESSION: Unchanged moderate cardiomegaly with no other evidence of active disease. THIS IS AN ELECTRONICALLY VERIFIED FINAL REPORT 01/09/2025 2:04 AM - Electronically signed by Des Dailey MD
[2025-01-09 05:56] LABS: BASOPHILS # (AUTO) 0.1 X10^3/uL (0.0-0.1); BASOPHILS % (AUTO) 0.9 % (0.2-1.0); EOSINOPHILS # (AUTO) 0.2 x10^3/uL (0.0-0.2); EOSINOPHILS % (AUTO) 1.9 % (0.9-2.9); HEMATOCRIT 44.8 % (36.0-47.0); HEMOGLOBIN 15.4 g/dL (12.0-16.0); LYMPHOCYTES # (AUTO) 1.6 X10^3/uL (1.3-2.9); LYMPHOCYTES % (AUTO) 18.8 % (21.0-51.0); MEAN CORPUSCULAR HEMOGLOBIN 32.2 pg (27.0-34.0); MEAN CORPUSCULAR HGB CONC 34.3 g/dL (33.0-35.0); MEAN CORPUSCULAR VOLUME 94.1 fL (80.0-100.0); MEAN PLATELET VOLUME 9.5 fL (7.4-11.0); MONOCYTES # (AUTO) 0.7 x10^3/uL (0.3-0.8); MONOCYTES % (AUTO) 8.4 % (0.0-13.0); NEUTROPHILS # (AUTO) 5.8 x10^3/uL (2.2-4.8); PLATELET COUNT 219 X10^3/uL (150.0-450.0); RED BLOOD COUNT 4.77 X10^6/uL (3.5-5.4); RED CELL DISTRIBUTION WIDTH 14.5 % (11.6-16.5); WHITE BLOOD COUNT 8.3 X10^3/uL (3.6-10.0)
[2025-01-09 06:09] LABS: ALANINE AMINOTRANSFERASE 17 Units/L (12-78); ALBUMIN 2.9 g/dL (3.4-5.0); ALKALINE PHOSPHATASE 82 Units/L (46-116); ASPARTATE AMINO TRANSFERASE 19 Units/L (15-37); BLOOD UREA NITROGEN 16 mg/dL (7-18); CALCIUM 9.1 mg/dL (8.5-10.1); CARBON DIOXIDE 27.6 mmol/L (21-32); CHLORIDE 103 mmol/L (98-107); CHOL/HDL RATIO 3.2 (0.0-5.0); CHOLESTEROL 133 mg/dL (0-200); CREATININE 0.82 mg/dL (0.55-1.02); GLUCOSE 103 mg/dL (65-99); HDL CHOLESTEROL 42 mg/dL (40-60); MAGNESIUM 1.9 mg/dL (2.0-2.9); POTASSIUM 3.4 mmol/L (3.5-5.1); SODIUM 138 mmol/L (136-145); TOTAL PROTEIN 6.5 g/dL (6.4-8.2); TRIGLYCERIDES 58 mg/dL (0-150); eGFR NON BLACK RACES > 60 (>60)
--- NOTE | 2025-01-09 08:04 | EKG ---
Test Reason : near syncope Blood Pressure : */* mmHG Vent. Rate : 81 BPM Atrial Rate : * BPM P-R Int : * ms QRS Dur : 110 ms QT Int : 460 ms P-R-T Axes : * 27 70 degrees QTc Int : 534 ms Atrial fibrillation with premature ventricular or aberrantly conducted complexes Possible Anterior infarct , age undetermined Prolonged QT Abnormal ECG When compared with ECG of 09-JAN-2025 01:04, Borderline criteria for Anterior infarct are now present Confirmed by Popeye Call MD ([id number]) on 01/10/2025 8:28:57 AM Referred By: Confirmed By: Popeye Call MD
[2025-01-09] MEDS: ENTRESTO 49/51 MG TABLET PO SCH (09:16)
--- NOTE | 2025-01-09 10:36 | RAD ---
EXAM:AP chestHISTORY:SyncopeCOMPARISON: 5FINDINGS:Stable cardiomegaly with clear lungs and pleural spaces. Marked tortuous dilation of aorta is similar.IMPRESSION:No change or acute findings. Stable aneurysmal dilatation of thoracic aorta as described on CTA chest 02/08/2024.THIS IS AN ELECTRONICALLY VERIFIED FINAL REPORT01/09/2025 10:33 AM - Electronically signed by Timothy Gomez MD
--- NOTE | 2025-01-09 13:07 | DR.H&P ---
H&P History & Physical for Day of: H&P Date: 01/08/25 Chief Complaint Chief Complaint: near syncope, weakness History of Present Illness History of Present Illness: 79 yo F, hx of afib, on eliquis, c/o near syncopal episode while in the shower at home just [employer]. Pt states she felt fine prior, began to feel extremely lightheaded. c/o severe weakness and lightheadedness since. c/o associated headache. Denies other complaints. Past Medical History Past Medical History: CHF, COPD, Diabetes, Dyslipidemia, GERD and Hypertension Past Surgical History Surgical History: Cholecystectomy, Hysterectomy and Mastectomy Family History Family Medical History: Diabetes Mellitus, CT and Hypertension Social History Does patient currently use any type of tobacco product: No Have you used tobacco products in the last 12 months: Yes Type of Tobacco Use: None How many years tobacco product used: 50 Does any household member use tobacco: No Alcohol Use: None Drug Use: None Medications Home Medications: Home Medications Medication Instructions Recorded Confirmed Type atorvastatin 40 mg tablet 40 mg PO QPM 11/18/24 01/08/25 History Allergies Allergies Allergy/AdvReac Type Severity Reaction Status Date / Time macadamia nut oil Allergy Verified 01/08/25 17:37 Labs 01/09/25 05:36 01/09/25 05:36 Labs: Laboratory WBC 8.3 X10^3/uL (3.6-10.0) 01/09/25 05:36 RBC 4.77 X10^6/uL (3.5-5.4) 01/09/25 05:36 Hgb 15.4 g/dL (12.0-16.0) 01/09/25 05:36 Hct 44.8 % (36.0-47.0) 01/09/25 05:36 MCV 94.1 fL (80.0-100.0) 01/09/25 05:36 MCH 32.2 pg (27.0-34.0) 01/09/25 05:36 MCHC 34.3 g/dL (33.0-35.0) 01/09/25 05:36 RDW 14.5 % (11.6-16.5) 01/09/25 05:36 Plt Count 219 X10^3/uL (150.0-450.0) 01/09/25 05:36 Plt Count Comment Adequate (ADEQUATE) 01/08/25 17:24 MPV 9.5 fL (7.4-11.0) 01/09/25 05:36 Neut % (Auto) 70.0 % (42.0-75.0) 01/09/25 05:36 Lymph % (Auto) 18.8 % (21.0-51.0) L 01/09/25 05:36 Mckean % (Auto) 8.4 % (0.0-13.0) 01/09/25 05:36 Eos % (Auto) 1.9 % (0.9-2.9) 01/09/25 05:36 Baso % (Auto) 0.9 % (0.2-1.0) 01/09/25 05:36 Neut # (Auto) 5.8 x10^3/uL (2.2-4.8) H 01/09/25 05:36 Lymph # (Auto) 1.6 X10^3/uL (1.3-2.9) 01/09/25 05:36 Mckean # (Auto) 0.7 x10^3/uL (0.3-0.8) 01/09/25 05:36 Eos # (Auto) 0.2 x10^3/uL (0.0-0.2) 01/09/25 05:36 Baso # (Auto) 0.1 X10^3/uL (0.0-0.1) 01/09/25 05:36 Absolute Nucleated RBC 0.2 /100WBC 01/09/25 05:36 Plt Clumps, EDTA Rare 01/08/25 17:24 Plt Morphology Comment Normal (NORMAL) 01/08/25 17:24 RBC Morphology Normal (NORMAL) 01/08/25 17:24 PT 16.8 SECONDS (11.8-14.3) 01/09/25 05:36 INR Target Range - 01/09/25 05:36 INR 1.40 (0.8-1.3) H 01/09/25 05:36 APTT 33.8 SECONDS (22.9-36.5) 01/09/25 05:36 PTT Comment - 01/09/25 05:36 Sodium 138 mmol/L (136-145) 01/09/25 05:36 Corrected Sodium TNP 01/09/25 05:36 Potassium 3.4 mmol/L (3.5-5.1) L 01/09/25 05:36 Chloride 103 mmol/L (98-107) 01/09/25 05:36 Carbon Dioxide 27.6 mmol/L (21-32) 01/09/25 05:36 BUN 16 mg/dL (7-18) 01/09/25 05:36 Creatinine 0.82 mg/dL (0.55-1.02) 01/09/25 05:36 Est GFR (MDRD) Af Amer > 60 (>60) 01/09/25 05:36 Est GFR (MDRD) Non-Af > 60 (>60) 01/09/25 05:36 Glucose 103 mg/dL (65-99) H 01/09/25 05:36 Calcium 9.1 mg/dL (8.5-10.1) 01/09/25 05:36 Corrected Calcium 10.0 mg/dL (8.5-10.1) 01/09/25 05:36 Magnesium 1.9 mg/dL (2.0-2.9) L 01/09/25 05:36 Total Bilirubin 0.40 mg/dL (0.2-1.0) 01/09/25 05:36 AST 19 Units/L (15-37) 01/09/25 05:36 ALT 17 Units/L (12-78) 01/09/25 05:36 Alkaline Phosphatase 82 Units/L (46-116) 01/09/25 05:36 Creatine Kinase 33 Units/L (26-192) 01/08/25 23:42 Troponin I High Sens 18.1 ng/L (4.0-60.0) 01/09/25 05:36 Total Protein 6.5 g/dL (6.4-8.2) 01/09/25 05:36 Albumin 2.9 g/dL (3.4-5.0) L 01/09/25 05:36 Globulin 3.6 g/dL (2.5-4.5) 01/09/25 05:36 Albumin/Globulin Ratio 0.8 Ratio (1.1-2.1) L 01/09/25 05:36 Triglycerides 58 mg/dL (0-150) 01/09/25 05:36 Cholesterol 133 mg/dL (0-200) 01/09/25 05:36 LDL Cholesterol, Calc 79 mg/dL (0-100) 01/09/25 05:36 HDL Cholesterol 42 mg/dL (40-60) 01/09/25 05:36 Cholesterol/HDL Ratio 3.2 (0.0-5.0) 01/09/25 05:36 Review of Systems Constitutional: Weakness Eyes: No Symptoms Reported ENT: No Symptoms Reported Respiratory: Shortness of Breath Cardiovascular: Edema Gastrointestinal: No Symptoms Reported Genitourinary: No Symptoms Reported Musculoskeletal: No Symptoms Reported Skin: No Symptoms Reported Neurological: Weakness, Confusion (poor historian) and Other (headache) Physical Exam Vital Signs: Vital Signs Temperature 98.1 F Pulse Rate [Right Brachial] 78 Pulse Rate [Radial] 78 Respiratory Rate 19 Blood Pressure [Right Arm] 110/57 O2 Sat by Pulse Oximetry 94 Oriented: Time, Person and Place Eyes: Normal Ear: Normal Nose: Normal Throat: Normal Respiratory: RLL Diminished and LLL Diminished Cardiovascular: Irregular and Edema Auscultation: Bowel Sounds: Normal Palpation: Normal Tenderness: Normal Skin: Decreased Turgur Musculoskeletal: Back:Lumbar Psychiatric: Normal Mood Description: Calm Affect: Normal Speech Pattern: Clear and Appropriate Assessment/Plan (1) Near syncope: Status: Acute Plan: ADMIT, CT HEAD ON ER ARRIVAL IV HYDRATION WITH I&OS CARDIAC MONITORING AND CE RESP THERAPY PRN SUPPLEMENTAL O2 VERIFY HOME MEDICATIONS REVIEW LAST [facility] CONSULT ON SATURDAY (2) Essential (primary) hypertension: Status: Acute (3) Acute exacerbation of CHF (congestive heart failure): Status: Acute (4) Atrial fibrillation: Status: Acute
[2025-01-09] MEDS ORDERED: CONSULT PHARMACY - POTASSIUM & MAGNESIUM XX SCH (18:00)
[2025-01-09] MEDS: K-DUR TAB 20 MEQ PO SCH (20:18)
[2025-01-09] MEDS: MAG-OX TAB PO SCH (20:18)
[2025-01-10 06:07] LABS: BASOPHILS # (AUTO) 0.1 X10^3/uL (0.0-0.1); BASOPHILS % (AUTO) 1.1 % (0.2-1.0); EOSINOPHILS # (AUTO) 0.2 x10^3/uL (0.0-0.2); EOSINOPHILS % (AUTO) 2.2 % (0.9-2.9); HEMATOCRIT 42.9 % (36.0-47.0); HEMOGLOBIN 14.8 g/dL (12.0-16.0); LYMPHOCYTES # (AUTO) 1.6 X10^3/uL (1.3-2.9); LYMPHOCYTES % (AUTO) 23.1 % (21.0-51.0); MEAN CORPUSCULAR HEMOGLOBIN 32.1 pg (27.0-34.0); MEAN CORPUSCULAR HGB CONC 34.4 g/dL (33.0-35.0); MEAN CORPUSCULAR VOLUME 93.3 fL (80.0-100.0); MEAN PLATELET VOLUME 9.2 fL (7.4-11.0); MONOCYTES # (AUTO) 0.6 x10^3/uL (0.3-0.8); MONOCYTES % (AUTO) 8.5 % (0.0-13.0); NEUTROPHILS # (AUTO) 4.6 x10^3/uL (2.2-4.8); NEUTROPHILS % (AUTO) 65.1 % (42.0-75.0); PLATELET COUNT 196 X10^3/uL (150.0-450.0); RED CELL DISTRIBUTION WIDTH 14.4 % (11.6-16.5)
[2025-01-10 06:23] LABS: ALANINE AMINOTRANSFERASE 17 Units/L (12-78); ALBUMIN 2.7 g/dL (3.4-5.0); ALKALINE PHOSPHATASE 76 Units/L (46-116); ASPARTATE AMINO TRANSFERASE 16 Units/L (15-37); BLOOD UREA NITROGEN 13 mg/dL (7-18); CALCIUM 8.3 mg/dL (8.5-10.1); CARBON DIOXIDE 27.2 mmol/L (21-32); CHLORIDE 106 mmol/L (98-107); COR CA(FOR HYPOALB) 9.3 mg/dL (8.5-10.1); COR NA(FOR HYPERGLY) 140 mmol/L (136-145); GLUCOSE 111 mg/dL (65-99); POTASSIUM 3.9 mmol/L (3.5-5.1); SODIUM 140 mmol/L (136-145); eGFR NON BLACK RACES > 60 (>60)
[2025-01-10] MEDS: LASIX IVP ONE (08:21)
[2025-01-10] MEDS: KLOR-CON 10 MEQ TAB PO SCH (08:21)
[2025-01-11 05:41] LABS: BASOPHILS # (AUTO) 0.1 X10^3/uL (0.0-0.1); BASOPHILS % (AUTO) 1.1 % (0.2-1.0); EOSINOPHILS # (AUTO) 0.2 x10^3/uL (0.0-0.2); EOSINOPHILS % (AUTO) 3.9 % (0.9-2.9); HEMATOCRIT 42.6 % (36.0-47.0); HEMOGLOBIN 14.3 g/dL (12.0-16.0); LYMPHOCYTES # (AUTO) 1.2 X10^3/uL (1.3-2.9); MEAN CORPUSCULAR HEMOGLOBIN 31.7 pg (27.0-34.0); MEAN CORPUSCULAR HGB CONC 33.6 g/dL (33.0-35.0); MEAN CORPUSCULAR VOLUME 94.5 fL (80.0-100.0); MEAN PLATELET VOLUME 9.7 fL (7.4-11.0); MONOCYTES # (AUTO) 0.6 x10^3/uL (0.3-0.8); NEUTROPHILS # (AUTO) 3.5 x10^3/uL (2.2-4.8); PLATELET COUNT 196 X10^3/uL (150.0-450.0); RED BLOOD COUNT 4.51 X10^6/uL (3.5-5.4); RED CELL DISTRIBUTION WIDTH 14.3 % (11.6-16.5); WHITE BLOOD COUNT 5.6 X10^3/uL (3.6-10.0)
[2025-01-11 05:51] LABS: BLOOD UREA NITROGEN 11 mg/dL (7-18); CALCIUM 8.2 mg/dL (8.5-10.1); CARBON DIOXIDE 27.7 mmol/L (21-32); CHLORIDE 106 mmol/L (98-107); CREATININE 0.72 mg/dL (0.55-1.02); GLUCOSE 94 mg/dL (65-99); SODIUM 141 mmol/L (136-145); eGFR NON BLACK RACES > 60 (>60)
[2025-01-11] MEDS ORDERED: CONSULT PHARMACY - POTASSIUM & MAGNESIUM XX SCH (06:00)
[2025-01-11 06:59] LABS: ALANINE AMINOTRANSFERASE 18 Units/L (12-78); ALBUMIN 2.8 g/dL (3.4-5.0); ALKALINE PHOSPHATASE 86 Units/L (46-116); ASPARTATE AMINO TRANSFERASE 19 Units/L (15-37); COR CA(FOR HYPOALB) 9.2 mg/dL (8.5-10.1); TOTAL PROTEIN 6.4 g/dL (6.4-8.2)
[2025-01-11 07:57] VITALS: BP 103/52; PULSE 87; RESP 19; TEMP 98; O2SAT 93
[2025-01-11] MEDS: MAG-OX TAB PO SCH (09:01)
[2025-01-11] MEDS: ENTRESTO 49/51 MG TABLET PO SCH (09:02)
--- NOTE | 2025-01-11 09:19 | DR.CONSULT ---
CONSULT Consultation for Day of: Date: 01/11/25 Chief Complaint Chief Complaint: syncope Allergies Allergies Allergy/AdvReac Type Severity Reaction Status Date / Time macadamia nut oil Allergy Verified 01/08/25 17:37 History of Present Illness History of Present Illness: 79 yo female- minimal cad 2022- long standing cafib- TAA 6 cm not felt to be surgical candidate- has chf- last echo 11/17: ef 50% mild ai/tr mr- admitted after syncope- very inactive due to bad knees- took shower saturday and passed out- was cold/pale- bp low- er said 80/40- been feeling poorly for week /so- denies tachy- no bp checks- on big dose entresto/coreg- in hosp hr 70-90 afib, bp 100-120 ( tending to be low) Past Medical History Past Medical History: CHF, COPD, Diabetes, Dyslipidemia, GERD and Hypertension Past Surgical History Surgical History: Cholecystectomy, Hysterectomy and Mastectomy Family History Family Medical History: Diabetes Mellitus, DC and Hypertension Social History Does patient currently use any type of tobacco product: No Have you used tobacco products in the last 12 months: Yes Type of Tobacco Use: None How many years tobacco product used: 50 Does any household member use tobacco: No Alcohol Use: None Drug Use: None Medications Home Medications: macadamia nut oil Allergy (Verified 01/08/25 17:37) Physical Exam Vital Signs: Vital Signs Temperature 98.0 F Temperature 98.2 F Pulse Rate [Right Brachial] 87 Pulse Rate [Right Brachial] 89 Respiratory Rate 19 Respiratory Rate 18 Blood Pressure [Right Arm] 103/52 Blood Pressure [Right Arm] 160/76 O2 Sat by Pulse Oximetry 93 O2 Sat by Pulse Oximetry 92 alert ox3 nad clear lungs minimal edema no bruits irreg soft abhinav 2/4 ai labs: hct 42 k 3.4 up to [address]0 ct o.72 ldl 79 ekg: afib cxr: cm/tortuous ao Plan (1) Near syncope: Status: Acute Narrative Support Text: suspect hypotension Plan: cont coreg at current dose as to keep hr 70-90- cut back entresto to let bp go up- no daily lasix that i can tell- ok to f/u by phone with bps in week (2) Essential (primary) hypertension: Status: Acute (3) Acute exacerbation of CHF (congestive heart failure): Status: Acute (4) Atrial fibrillation: Status: Acute
--- NOTE | 2025-01-11 11:07 | VAS ---
EXAM:CAROTID USHISTORY:syncope, TIA, RO CAROTID ART DISEASE; NEAR SUNCOPE, TIA, AFIBCOMPARISON:None available.TECHNIQUE:Multiple cantrell scale, duplex and color flow Doppler images of the right and left carotid arterial system were obtained. The vertebral arterial system was evaluated as well.FINDINGS:Nonocclusive color flow Doppler is seen throughout the right and left carotid arterial system.There is mild atherosclerotic plaque formation of the bilateral carotid bulbs and proximal ICAs with associated intimal thickening but without evidence for high-grade stenosis (>70%) or occlusion of the carotid arteries. The right and left vertebral artery demonstrate antegrade flow.There is patent flow and normal duplex waveforms within the right and left external carotid arteries.Peak right ICA velocity: 90 centimeter/seconds.Peak right CCA velocity: 58 centimeter/seconds.Right ICA to CCA ratio: 1.7.Peak left ICA velocity: 97 centimeter/seconds.Peak left CCA velocity: 88 centimeter/seconds.Left ICA to CCA ratio: 1.6.IMPRESSION:No hemodynamically significant carotid artery stenosis is seen.Mild bilateral CCA and proximal ICA atherosclerosis.Appropriate, antegrade, vertebral arterial flow seen bilaterally.THIS IS AN ELECTRONICALLY VERIFIED FINAL REPORT01/11/2025 11:04 AM - Electronically signed by Jaquan Crowe MD
--- NOTE | 2025-01-11 11:13 | CT ---
EXAM:BRAIN W/O CONHISTORY:SYNCOPE;COMPARISON:Prior study or studies were utilized for comparison during interpretation with the most relevant dated 07/12/2023TECHNIQUE:CT images were obtained. Multiplanar reconstructions were created on a separate workstation and used during interpretation. All CT scans at this facility is dose modulation, iterative reconstruction, and/or weight-based dosing as appropriate to reduce radiation to levels as low as reasonably achievable (ALARA). Postprocessing details, radiation dose, and contrast dose (if applicable) are recorded in the patient's medical record.FINDINGS:Head:Acute findings: There is no intracranial hemorrhage. No mass effect. No intra-axial or extra-axial fluid collection. There is no mass. No tentorial, uncal, or tonsillar herniation.Brain volume and white matter: There is diffuse cortical atrophy. There is hypoattenuation in the supratentorial white matter consistent with chronic microvascular ischemic disease.Ventricles: No hydrocephalusMidline structures: Pituitary gland and corpus callosum are normal.Posterior fossa and skull base: Cerebellum and posterior fossa are within normal limits. Basal cisterns are not effaced.Sinuses and mastoids: Paranasal sinuses and mastoid air cells are predominantly clear.Globes and Orbits: Bilateral lens implants. Globes are intact. Bony orbits are intact. Extraocular muscles and retrobulbar fat appear normal.Skull and soft tissues: No depressed skull fracture. Calvarium appears intact. No scalp injury is identified.IMPRESSION:1. No acute intracranial abnormalityTHIS IS AN ELECTRONICALLY VERIFIED FINAL REPORT01/11/2025 11:09 AM - Electronically signed by Rosalino Rodríguez MD
== END 2025-01-11 11:20 | disposition home or self-care (01) ==
LOC: ER 15:53 → MED/SURG 15:53
PROVIDERS: ADMIT Internal Medicine; ATTEND Obstetrics & Gynecology Obstetrics
DX: E11.65 Type 2 diabetes mellitus with hyperglycemia; Z79.01 Long term (current) use of anticoagulants; E83.42 Hypomagnesemia; K21.9 Gastro-esophageal reflux disease without esophagitis; Z65.8 Other specified problems related to psychosocial circumstances; I48.91 Unspecified atrial fibrillation; I50.9 Heart failure, unspecified; R55 Syncope and collapse; R42 Dizziness and giddiness; R51.9 Headache, unspecified; E78.5 Hyperlipidemia, unspecified; R79.1 Abnormal coagulation profile; R94.31 Abnormal electrocardiogram [ECG] [EKG]; I11.0 Hypertensive heart disease with heart failure; R53.1 Weakness; J44.9 Chronic obstructive pulmonary disease, unspecified